=== PATIENT | male | born 1950 | race Caucasian/White ===

== ENCOUNTER 2019-11-11 11:34 | Inpatient (IN) | payer MEDICARE, OTHER ==
[2019-11-11] MEDS ORDERED: Sodium Chloride 0.9% 10 ML Syringe FLUSH PRN (11:56)
--- NOTE | 2019-11-11 12:00 | EDM.PDOC ---
ED HPI GENERAL MEDICAL PROBLEM - General Chief Complaint: Respiratory Problem Stated Complaint: [facility] Time Seen by Provider: 11/11/19 11:54 Source of Information: Reports: Patient History Limitations: Reports: No Limitations - History of Present Illness INITIAL COMMENTS - FREE TEXT/NARRATIVE: 69-year-old male presents to the ED for evaluation of increasing dyspnea on minimal exertion. Mild orthopnea and PND but he is up every hour to void. He does not have sleep apnea syndrome. He has known COPD from cigarette smoking and ingest of heart failure. It's unclear whether he's ever had myocardial infarction. Similar type problems for the last year or 2. States his legs are grossly swollen and 10 to improve overnight with gravity. He believes he is voiding fairly normally although he has nocturia 4-5. Denies cough or sputum production. No fever or chills. Oxygen at 4 L/m all times. Experiencing dyspnea on minimal exertion such as going to the bathroom. Usually wears his nasal prongs in his mouth at nighttime due to nasal congestion. Denies any recent changes in medications. No recent severe chest pain. Onset: Gradual Onset Date: 11/07/19 Duration: Day(s):, Getting Worse Location: Reports: Generalized (Increased dependent edema and dyspnea on minimal exertion.) Quality: Reports: Ache, Throbbing Severity: Moderate (In his legs.) Improves with: Reports: Other (Elevating his legs helps reduce some of the edema.) Worsens with: Reports: Other (Prongs sitting.) Context: Reports: Other. Denies: Activity, Exercise, Lifting, Sick Contact, Trauma Associated Symptoms: Reports: Cough (Spontaneous occurrence), Malaise, Shortness of Breath, Weakness. 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) - Related Data Allergies Allergy/AdvReac Type Severity Reaction Status Date / Time No Known Allergies Allergy Verified 11/11/19 12:22 Home Meds: Home Meds Albuterol Sulfate [Proair Respiclick] 2 puff INH Q6H PRN 11/11/19 [History] Aspirin 81 mg PO DAILY 11/11/19 [History] Budesonide/Formoterol [Symbicort 160-4.5 MCG] 2 puff INH BID 11/11/19 [History] Cannabidiol (Cbd) Extract [CBD Oil] 1 drop PO BEDTIME 11/11/19 [History] Losartan [Cozaar] 100 mg PO DAILY 11/11/19 [History] Nortriptyline HCl [Pamelor] 50 mg PO DAILY 11/11/19 [History] Tiotropium [Spiriva HandiHaler] 18 mcg INH DAILY 11/11/19 [History] carvediloL [Carvedilol] 25 mg PO DAILY 11/11/19 [History] Past Medical History Cardiovascular History: Reports: Bypass (A bypass done in 2012. States one vessel had an aneurysm on it.), Cardiomyopathy, Heart Failure, Hypertension, [place] , Pulmonary Hypertension, PVD, SOB on Exertion (Suspect but not proven), Other ( See Below) (No one thoracic aortic aneurysm.) Respiratory History: Reports: COPD Genitourinary History: Reports: BPH (Nocturia 45.) Psychiatric History: Reports: Anxiety, Depression, PTSD Social & Family History - Tobacco Use Smoking Status *Q: Former Smoker - Living Situation & Occupation Living situation: Reports: Single Occupation: Unemployed ED ROS GENERAL - Review of Systems Review Of Systems: See Below Constitutional: Reports: Malaise, Weakness, Fatigue, Weight Gain (He estimates his weight is 180 pounds. He states he usually weighs around 155.). Denies: Fever, Chills HEENT: Reports: No Symptoms Respiratory: Reports: Shortness of Breath, Cough. Denies: Wheezing, Pleuritic Chest Pain, Sputum, Hemoptysis, Other Cardiovascular: Reports: Blood Pressure Problem (Nonproductive), Dyspnea on Exertion (Worsening edema both lower extremities over the last week.), Edema. Denies: Chest Pain, Claudication, Lightheadedness, Orthopnea Endocrine: Reports: Fatigue ( Weekly. He is on oxygen 4 L/m by nasal cannula at all times.) GI/Abdominal: Reports: Decreased Appetite : Reports: Frequency, Other Musculoskeletal: Reports: Joint Pain (Nocturia 45 per night.) Skin: Reports: No Symptoms ( He skips low back neck at times) Neurological: Reports: No Symptoms Psychiatric: Reports: Anxiety, Depression, Other Hematologic/Lymphatic: Reports: No Symptoms Immunologic: Reports: No Symptoms ED EXAM, GENERAL - Physical Exam Exam: See Below Exam Limited By: No Limitations General Appearance: Alert, WD/WN, Mild Distress, Other (Temperature 36.3. Heart rate 108 at the bedside. Respiratory to 16 with O2 sats of 91% on 4 L. BP elevated 156/96.) Eye Exam: Bilateral Eye: Normal Inspection Throat/Mouth: Normal Inspection, Normal Lips, Normal Oropharynx Head: Atraumatic, Normocephalic Neck: Full Range of Motion, Tender Lateral. No: Carotid Bruit, Tender Midline, Thyromegaly Respiratory/Chest: No Respiratory Distress, Decreased Breath Sounds (Decreased breath sounds lower 30% of lung jones bilaterally.), Rales. No: Normal Breath Sounds, Respiratory Distress, Rhonchi, Wheezing (Category fine rales both bases. ) Cardiovascular: Normal Peripheral Pulses, Regular Rate, Rhythm, No Gallop, No Murmur, No Rub. No: No Edema Peripheral Pulses: 0: Posterior Tibial (L) (Pulses in her lower extremities are obscured by severe dependent edema both lower extremities.), Posterior Tibial (R ), Dorsalis Pedis (L), Dorsalis Pedis (R) GI/Abdominal: Distended (Bowel sounds are decreased from the norm.Is distended and firm to palpation and dull to percussion. No At [place]. The distention limits ability to palpate solid organs.), Abnormal Bowel Sounds (Male) Exam: Other Extremities: Pedal Edema (Plus pitting edema both lower extremities above the knees bilaterally. No open wounds or serous drainage from either leg. The right leg is slightly more swollen than the left.) Neurological: Alert, Oriented, CN II-XII Intact, Normal Cognition. No: Normal Gait Psychiatric: Anxious Skin Exam: Warm, Dry, Intact, Normal Color, No Rash EKG INTERPRETATION EKG Date: 11/11/19 Time: 12:00 Rhythm: NSR Rate (Beats/Min): 81 [place]: Normal P-Wave: Enlarged QRS: Other (T-wave inversion V5 and V6 compatible with left ventricular hypertrophy with strain. Left ventricular hypertrophy with strain.Is a Q-wave in V1 near Q-wave in V2. Consider old anteroseptal myocardial infarction. Is a nonspecific intraventricular conduction delay. I suspect an early incomplete left bundle branch block pattern.) ST-T: Other QT: Prolonged EKG Interpretation Comments: Abnormal ECG Course - Vital Signs Last Recorded V/S: Last Vital Signs Temp 36.3 C 11/11/19 11:39 Pulse 108 H 11/11/19 11:39 Resp 16 11/11/19 11:39 BP 156/96 H 11/11/19 11:39 Pulse Ox 94 L 11/11/19 12:08 - Orders/Labs/Meds Orders: Active Orders 24 hr Category Date Time Status Admission Diagnosis [ADT] Stat ADT 11/11/19 17:09 Ordered EKG Documentation Completion [RC] STAT Care 11/11/19 11:56 Active Oxygen Therapy [RC] ASDIRECTED Care 11/11/19 11:56 Active Peripheral IV Care [RC] . DIRECTED Care 11/11/19 11:56 Active RT Aerosol Therapy [RC] ASDIRECTED Care 11/11/19 12:08 Active Sodium Chloride 0.9% [Saline Flush] Med 11/11/19 11:56 Active 10 ml FLUSH ASDIRECTED PRN Peripheral IV Insertion Adult [OM.PC] Stat Oth 11/11/19 11:56 Ordered Medication Orders Sodium Chloride (Saline Flush) 10 ml FLUSH ASDIRECTED PRN PRN Reason: Keep Vein Open Last Admin: 11/11/19 11:59 Dose: 10 ml Labs: Laboratory Tests 11/11/19 11/11/19 11/11/19 Range/Units 11:45 11:45 11:45 WBC 7.33 (4.23-9.07) K/mm3 RBC 4.42 L (4.63-6.08) M/mm3 Hgb 11.2 L (13.7-17.5) gm/dl Hct 37.1 L (40.1-51.0) % MCV 83.9 (79.0-92.2) fl MCH 25.3 L (25.7-32.2) pg MCHC 30.2 L (32.2-35.5) g/dl RDW Std Deviation 58.1 H (35.1-43.9) fL Plt Count 266 (163-337) K/mm3 MPV 8.9 L (9.4-12.3) fl Neut % (Auto) 74.2 H (34.0-67.9) % Lymph % (Auto) 15.4 L (21.8-53.1) % [place] % (Auto) 7.1 (5.3-12.2) % Eos % (Auto) 3.0 (0.8-7.0) Baso % (Auto) 0.3 (0.1-1.2) % Neut # (Auto) 5.44 H (1.78-5.38) K/mm3 Lymph # (Auto) 1.13 L (1.32-3.57) K/mm3 [place] # (Auto) 0.52 (0.30-0.82) K/mm3 Eos # (Auto) 0.22 (0.04-0.54) K/mm3 Baso # (Auto) 0.02 (0.01-0.08) K/mm3 PT 10.2 (9.7-12.0) SECONDS INR 0.93 APTT 32 H (22-31) SECONDS Sodium 142 (136-145) mEq/L Potassium 4.2 (3.5-5.1) mEq/L Chloride 102 (98-107) mEq/L Carbon Dioxide 32 (21-32) mEq/L Anion Gap 12.2 (5-15) BUN 30 H (7-18) mg/dL Creatinine 2.2 H (0.7-1.3) mg/dL Est Cr Clr Drug Dosing 35.76 mL/min Estimated GFR (MDRD) 30 (>60) mL/min BUN/Creatinine Ratio 13.6 L (14-18) Glucose 97 (80-115) mg/dL Calcium 8.7 (8.5-10.1) mg/dL Magnesium 1.8 (1.8-2.4) mg/dl Total Bilirubin 0.3 (0.2-1.0) mg/dL AST 18 (15-37) U/L ALT 25 (16-63) U/L Alkaline Phosphatase 84 (46-116) U/L CK-MB (CK-2) 1.6 (0-3.6) ng/ml Troponin I < 0.017 (0.00-0.056) ng/mL C-Reactive Protein 0.9 (<1.0) mg/dL NT-Pro-B Natriuret Pep (0-125) pg/mL Total Protein 6.6 (6.4-8.2) g/dl Albumin 2.8 L (3.4-5.0) g/dl Globulin 3.8 gm/dL Albumin/Globulin Ratio 0.7 L (1-2) Urine Color (Yellow) Urine Appearance (Clear) Urine pH (5.0-8.0) Ur Specific [place] (1.005-1.030) Urine Protein (Negative) Urine Glucose (UA) (Negative) Urine Ketones (Negative) Urine Occult Blood (Negative) Urine Nitrite (Negative) Urine Bilirubin (Negative) Urine Urobilinogen (0.2-1.0) Ur Leukocyte Esterase (Negative) Urine RBC (0-5) /hpf Urine WBC (0-5) /hpf Ur Squamous Epith Cells (0-5) /hpf Urine Bacteria (FEW) /hpf Urine Mucus (FEW) /hpf 11/11/19 11/11/19 Range/Units 11:45 13:00 WBC (4.23-9.07) K/mm3 RBC (4.63-6.08) M/mm3 Hgb (13.7-17.5) gm/dl Hct (40.1-51.0) % MCV (79.0-92.2) fl MCH (25.7-32.2) pg MCHC (32.2-35.5) g/dl RDW Std Deviation (35.1-43.9) fL Plt Count (163-337) K/mm3 MPV (9.4-12.3) fl Neut % (Auto) (34.0-67.9) % Lymph % (Auto) (21.8-53.1) % [place] % (Auto) (5.3-12.2) % Eos % (Auto) (0.8-7.0) Baso % (Auto) (0.1-1.2) % Neut # (Auto) (1.78-5.38) K/mm3 Lymph # (Auto) (1.32-3.57) K/mm3 [place] # (Auto) (0.30-0.82) K/mm3 Eos # (Auto) (0.04-0.54) K/mm3 Baso # (Auto) (0.01-0.08) K/mm3 PT (9.7-12.0) SECONDS INR APTT (22-31) SECONDS Sodium (136-145) mEq/L Potassium (3.5-5.1) mEq/L Chloride (98-107) mEq/L Carbon Dioxide (21-32) mEq/L Anion Gap (5-15) BUN (7-18) mg/dL Creatinine (0.7-1.3) mg/dL Est Cr Clr Drug Dosing mL/min Estimated GFR (MDRD) (>60) mL/min BUN/Creatinine Ratio (14-18) Glucose (80-115) mg/dL Calcium (8.5-10.1) mg/dL Magnesium (1.8-2.4) mg/dl Total Bilirubin (0.2-1.0) mg/dL AST (15-37) U/L ALT (16-63) U/L Alkaline Phosphatase (46-116) U/L CK-MB (CK-2) (0-3.6) ng/ml Troponin I (0.00-0.056) ng/mL C-Reactive Protein (<1.0) mg/dL NT-Pro-B Natriuret Pep 4015 H (0-125) pg/mL Total Protein (6.4-8.2) g/dl Albumin (3.4-5.0) g/dl Globulin gm/dL Albumin/Globulin Ratio (1-2) Urine Color Yellow (Yellow) Urine Appearance Clear (Clear) Urine pH 6.5 (5.0-8.0) Ur Specific [place] 1.025 (1.005-1.030) Urine Protein 3+ H (Negative) Urine Glucose (UA) Negative (Negative) Urine Ketones Negative (Negative) Urine Occult Blood Trace-lysed H (Negative) Urine Nitrite Negative (Negative) Urine Bilirubin Negative (Negative) Urine Urobilinogen 0.2 (0.2-1.0) Ur Leukocyte Esterase Negative (Negative) Urine RBC 0-5 (0-5) /hpf Urine WBC 0-5 (0-5) /hpf Ur Squamous Epith Cells 0-5 (0-5) /hpf Urine Bacteria Few (FEW) /hpf Urine Mucus Few (FEW) /hpf Meds: Medications Generic Name Dose Route Start Last Admin Trade Name Freq PRN Reason Stop Dose Admin Sodium Chloride 10 ml 11/11/19 11:56 11/11/19 11:59 Saline Flush FLUSH 10 ml ASDIRECTED PRN Administration Keep Vein Open Discontinued Medications Generic Name Dose Route Start Last Admin Trade Name Freq PRN Reason Stop Dose Admin Albuterol/Ipratropium 3 ml 11/11/19 12:08 11/11/19 12:14 Duoneb 3.0-0.5 Mg/3 Ml NEB 11/11/19 12:09 3 ml ONETIME ONE Administration Furosemide 40 mg 11/11/19 12:04 11/11/19 12:26 Lasix IVPUSH 11/11/19 12:05 40 mg NOW ONE Administration - Radiology Interpretation Free Text/Narrative:: 69-year-old male presents to the ED with gradually worsening dyspnea over the last week. Denies really any serious cough. Denies fever or chills. He has a history of intermittent problems with severe heart failure and increased edema in his lower extremities. He estimates that he's gained about 10 pounds in the last week. It's not real clear as he has no scale at home. Uses oxygen at 4 L/m by nasal prongs at all times due to COPD. He uses metered-dose inhalers at home which do help somewhat with his dyspnea. He states he is now dyspneic on minimal exertion such as walking from the bedroom to the bathroom. Appetite as he is no room for food. Clinically the patient is in significant congestive failure with I believe some ascites as well as marked dependent edema. Crease air flow to the lower 30% of lung jones bilaterally. Plan 1 view chest x-ray. ECG. Routine labs including cardiac markers and coags. BNP and serum magnesium. Be maintained on oxygen of 4 L/m by nasal cannula to maintain sats of 93%. Lasix 40 mg IV. I do not yet have a list of his current meds. And a DuoNeb while in the department. - Re-Assessments/Exams Free Text/Narrative Re-Assessment/Exam: 11/11/19 12:46 port chest x-ray reveals marked cardiomegaly with marked prominence of the thoracic aortic knob compatible with thoracic aortic aneurysm. He has evidence of previous open heart surgery with wires in the sternum. There is a diffuse vascular congestion pattern perhaps very minimal blunting of the left costophrenic angle. Is a linear band of either atelectasis or fluid in the right lung base. 11/11/19 13:17 Labs reveal a normal white count at 7.33. Differential by auto differential is 74.2% neutrophils. Hemoglobin is 11.2 slightly low with hematocrit of 37.1. MCV is normal at 83.9. Blood count 266,000. CT is 10.2 with an INR of 0.93. PTT is mildly elevated at 32. Sodium is 142 with potassium 4.2. Chloride is 102 with a bicarbonate 32 mildly elevated. Anion gap is 12.2. BUN is elevated at 30 with a creatinine of 2.2. e GFR is only 30 i.e. stage III chronic kidney disease. Glucose is 97 with calcium of 8.7. Magnesium low normal at 1.8. Liver function is normal. CK-MB fraction is 1.6 with a troponin I of less than 0.017. C-reactive protein is 0.9. BNP is 4015. Total protein is 6.6 with an albumin fraction low at 2.8. Departure - Departure Time of Disposition: 17:13 Disposition: Admitted As Inpatient 68 Condition: Fair Clinical Impression: End stage chronic obstructive pulmonary disease, Chronic renal insufficiency, stage III (moderate), Proteinuria, unspecified Acute exacerbation of CHF (congestive heart failure) Qualifiers: Heart failure type: combined systolic and diastolic Qualified Code(s): I50.43 - Acute on chronic combined systolic (congestive) and diastolic (congestive) heart failure - Discharge Information *PRESCRIPTION DRUG MONITORING PROGRAM REVIEWED*: Not Applicable *COPY OF PRESCRIPTION DRUG MONITORING REPORT IN PATIENT MERY: Not Applicable Referrals: Mae Don MD [Primary Care Provider] - Forms: ED Department Discharge Sepsis Event Note - Evaluation Sepsis Screening Result: No Definite Risk - Focused Exam Vital Signs: Vital Signs Temp Pulse Resp BP Pulse Ox Pulse Ox 11/11/19 12:08 94 L 11/11/19 11:39 36.3 C 108 H 16 156/96 H 91 L Date Exam was Performed: 11/11/19 Time Exam was Performed: 17:11 - My Orders Last 24 Hours: My Active Orders 11/11/19 11:56 EKG Documentation Completion [RC] STAT Oxygen Therapy [RC] ASDIRECTED Peripheral IV Care [RC] . DIRECTED Sodium Chloride 0.9% [Saline Flush] 10 ml FLUSH ASDIRECTED PRN Peripheral IV Insertion Adult [OM.PC] Stat 11/11/19 12:08 RT Aerosol Therapy [RC] ASDIRECTED 11/11/19 17:09 Admission Diagnosis [ADT] Stat - Assessment/Plan Last 24 Hours: My Active Orders 11/11/19 11:56 EKG Documentation Completion [RC] STAT Oxygen Therapy [RC] ASDIRECTED Peripheral IV Care [RC] . DIRECTED Sodium Chloride 0.9% [Saline Flush] 10 ml FLUSH ASDIRECTED PRN Peripheral IV Insertion Adult [OM.PC] Stat 11/11/19 12:08 RT Aerosol Therapy [RC] ASDIRECTED 11/11/19 17:09 Admission Diagnosis [ADT] Stat
[2019-11-11] MEDS ORDERED: Furosemide 40 MG/4 ML VIAL IVPUSH ONE (12:04)
[2019-11-11] MEDS ORDERED: Albuterol/Ipratropium 3.0-0.5 MG/3 ML Neb Soln NEB ONE (12:08)
--- NOTE | 2019-11-11 12:54 | CR ---
Chest: Portable view of the chest was obtained. Comparison: No prior chest imaging. Thoracic aorta shows aneurysmal dilatation with aortic knob measuring about 7 cm. Heart is mildly enlarged. Lungs show no acute parenchymal change. Bony structures are grossly intact. Previous sternotomy noted for CABG. Impression: 1. Thoracic aorta shows aneurysmal dilatation. 2. Other findings as noted above. Nothing acute is seen. Diagnostic code #3 This report was dictated in [place] Standard Time
--- NOTE | 2019-11-11 15:07 | PCM.HP.2 ---
H&P History of Present Illness - General Date of Service: 11/11/19 Admit Problem/Dx: Congestive Heart Failure Source of Information: Patient, Old Records, Provider, RN Notes Reviewed History Limitations: Reports: No Limitations - History of Present Illness Initial Comments - Free Text/Narative: This is a 69 yo elderly white male with past medical hx/o HTN, HLD, PVD, CAD S/ p CABG in 2012, COPD, Respiratory Failure on 4L NC chronically, Hx/o ND, Hx/o ND , Pulmonary HTN, TAA, BPH, Anxiety, Depression and Hx/o PTSD who presents to ED with complaints of increasing dyspnea on minimal exertion associated with Orthopnea and PND over the course of a week. He carries a hx/o cardiomyopathy and HF with unknown EF. He states his legs are grossly swollen and had 10lbs weight gain over the course of several days. He takes diuretic but makes him voided a lot at night. He is O2 dependent on 4L NC all the time for SANT[place] and COPD. He states he gets short of breath even going to the bathroom. He denies any signs or symptoms of systemic infection. His initial work up in ED shows a CBC remarkable for RBC of 4.42, Hgb of 11.2, Hct of 37.1, MCH of 25.3, MCHC of 30.2, RDW of 58.1, MPV of 8.9, Neutrophils of 74.2%, Lymphocytes of 15.4%, Neutrophil # of 5.44, Lymphocyte # of 1.13. His coagulation studies are significant for aPTT of 32. His Chemistry is remarkable for BUN of 30, Cr of 2.2, ProBNP of 4015, and Albumin of 2.8. His UA is not suggestive of UTI but noted for 3+ proteinuria. Patient received initial treatment in ED before he was sent to us for further management. - Related Data Allergies/Adverse Reactions: Allergies Allergy/AdvReac Type Severity Reaction Status Date / Time No Known Allergies Allergy Verified 11/11/19 12:22 Home Medications: Home Meds Albuterol Sulfate [Proair Respiclick] 2 puff INH Q6H PRN 11/11/19 [History] Aspirin 81 mg PO DAILY 11/11/19 [History] Budesonide/Formoterol [Symbicort 160-4.5 MCG] 2 puff INH BID 11/11/19 [History] Cannabidiol (Cbd) Extract [CBD Oil] 1 drop PO BEDTIME 11/11/19 [History] Losartan [Cozaar] 100 mg PO DAILY 11/11/19 [History] Nortriptyline HCl [Pamelor] 50 mg PO DAILY 11/11/19 [History] Tiotropium [Spiriva HandiHaler] 18 mcg INH DAILY 11/11/19 [History] carvediloL [Carvedilol] 25 mg PO DAILY 11/11/19 [History] Past Medical History Cardiovascular History: Reports: Bypass (A bypass done in 2012. States one vessel had an aneurysm on it.), Cardiomyopathy, Heart Failure, Hypertension, ND , Pulmonary Hypertension, PVD, SOB on Exertion (Suspect but not proven), Other ( See Below) (No one thoracic aortic aneurysm.) Respiratory History: Reports: COPD Genitourinary History: Reports: BPH (Nocturia 45.) Psychiatric History: Reports: Anxiety, Depression, PTSD Social & Family History - Tobacco Use Smoking Status *Q: Former Smoker Used Tobacco, but Quit: Yes Month/Year Tobacco Last Used: 6 years ago - Recreational Drug Use Recreational Drug Use: No - Living Situation & Occupation Living situation: Reports: Single Occupation: Unemployed H&P Review of Systems - Review of Systems: Review Of Systems: Comprehensive ROS is negative, except as noted in HPI. General: Reports: Weakness, Decreased Appetite, Weight Gain. Denies: Fever, Chills HEENT: Reports: No Symptoms Pulmonary: Reports: Shortness of Breath, Cough Cardiovascular: Reports: Dyspnea on Exertion, Orthopnea, PND, Blood Pressure Problem Gastrointestinal: Denies: Abdominal Pain, Nausea, Vomiting Genitourinary: Reports: Frequency Musculoskeletal: Reports: No Symptoms Skin: Denies: Cyanosis, Diaphoresis, Bruising, Erythema Psychiatric: Denies: Confusion Neurological: Denies: Pre-Existing Deficit, Trouble Speaking Hematologic/Lymphatic: Reports: No Symptoms Immunologic: Reports: No Symptoms Exam - Exam Exam: See Below - Vital Signs Vital Signs: Last Vital Signs Temp 36.3 C 11/11/19 11:39 Pulse 108 H 11/11/19 11:39 Resp 16 11/11/19 11:39 BP 156/96 H 11/11/19 11:39 Pulse Ox 94 L 11/11/19 12:08 Weight: 81.647 kg - Exam Quality Assessment: Supplemental Oxygen General: Alert, Oriented, Cooperative HEENT: Conjunctiva Clear, EACs Clear, EOMI, Hearing Intact, Mucosa Moist & [place] , Nares Patent, Normal Nasal Septum, Posterior Pharynx Clear, Pupils Equal, Pupils Reactive Neck: Supple, Trachea Midline Lungs: Normal Respiratory Effort, Decreased Breath Sounds Cardiovascular: Regular Rate, Regular Rhythm GI/Abdominal Exam: Normal Bowel Sounds, Soft, Non-Tender, No Organomegaly, No Distention, No Abnormal Bruit, No Mass (Male) Exam: Deferred Rectal (Males) Exam: Deferred Back Exam: Normal Inspection, Decreased Range of Motion Extremities: Normal Range of Motion, Normal Capillary Refill, Pedal Edema, Slow Capillary Refill, Other (improved peripheral edema but still considerably edematous). No: Leg Pain, Mottled, Redness Skin: Warm, Dry, Intact Skin Alteration Location (Drawings Not To Scale): 1 - 2+ pitting edema Neuro Extensive - Mental Status: Alert, Oriented x3, Normal Cognition, Memory Intact Neuro Extensive - Motor, Sensory, Reflexes: CN II-XII Intact (limited due to significant peripheral edema), Abnormal Gait Psychiatric: Alert, Normal Affect, Normal Mood - Patient Data Lab Results Last 24 hrs: Laboratory Results - last 24 hr 11/11/19 11/11/19 11/11/19 Range/Units 11:45 11:45 11:45 WBC 7.33 (4.23-9.07) K/mm3 RBC 4.42 L (4.63-6.08) M/mm3 Hgb 11.2 L (13.7-17.5) gm/dl Hct 37.1 L (40.1-51.0) % MCV 83.9 (79.0-92.2) fl MCH 25.3 L (25.7-32.2) pg MCHC 30.2 L (32.2-35.5) g/dl RDW Std Deviation 58.1 H (35.1-43.9) fL Plt Count 266 (163-337) K/mm3 MPV 8.9 L (9.4-12.3) fl Neut % (Auto) 74.2 H (34.0-67.9) % Lymph % (Auto) 15.4 L (21.8-53.1) % [place] % (Auto) 7.1 (5.3-12.2) % Eos % (Auto) 3.0 (0.8-7.0) Baso % (Auto) 0.3 (0.1-1.2) % Neut # (Auto) 5.44 H (1.78-5.38) K/mm3 Lymph # (Auto) 1.13 L (1.32-3.57) K/mm3 Frontier # (Auto) 0.52 (0.30-0.82) K/mm3 Eos # (Auto) 0.22 (0.04-0.54) K/mm3 Baso # (Auto) 0.02 (0.01-0.08) K/mm3 PT 10.2 (9.7-12.0) SECONDS INR 0.93 APTT 32 H (22-31) SECONDS Sodium 142 (136-145) mEq/L Potassium 4.2 (3.5-5.1) mEq/L Chloride 102 (98-107) mEq/L Carbon Dioxide 32 (21-32) mEq/L Anion Gap 12.2 (5-15) BUN 30 H (7-18) mg/dL Creatinine 2.2 H (0.7-1.3) mg/dL Est Cr Clr Drug Dosing 35.76 mL/min Estimated GFR (MDRD) 30 (>60) mL/min BUN/Creatinine Ratio 13.6 L (14-18) Glucose 97 (80-115) mg/dL Calcium 8.7 (8.5-10.1) mg/dL Magnesium 1.8 (1.8-2.4) mg/dl Total Bilirubin 0.3 (0.2-1.0) mg/dL AST 18 (15-37) U/L ALT 25 (16-63) U/L Alkaline Phosphatase 84 (46-116) U/L CK-MB (CK-2) 1.6 (0-3.6) ng/ml Troponin I < 0.017 (0.00-0.056) ng/mL C-Reactive Protein 0.9 (<1.0) mg/dL NT-Pro-B Natriuret Pep (0-125) pg/mL Total Protein 6.6 (6.4-8.2) g/dl Albumin 2.8 L (3.4-5.0) g/dl Globulin 3.8 gm/dL Albumin/Globulin Ratio 0.7 L (1-2) Urine Color (Yellow) Urine Appearance (Clear) Urine pH (5.0-8.0) Ur Specific [place] (1.005-1.030) Urine Protein (Negative) Urine Glucose (UA) (Negative) Urine Ketones (Negative) Urine Occult Blood (Negative) Urine Nitrite (Negative) Urine Bilirubin (Negative) Urine Urobilinogen (0.2-1.0) Ur Leukocyte Esterase (Negative) Urine RBC (0-5) /hpf Urine WBC (0-5) /hpf Ur Squamous Epith Cells (0-5) /hpf Urine Bacteria (FEW) /hpf Urine Mucus (FEW) /hpf 11/11/19 11/11/19 Range/Units 11:45 13:00 WBC (4.23-9.07) K/mm3 RBC (4.63-6.08) M/mm3 Hgb (13.7-17.5) gm/dl Hct (40.1-51.0) % MCV (79.0-92.2) fl MCH (25.7-32.2) pg MCHC (32.2-35.5) g/dl RDW Std Deviation (35.1-43.9) fL Plt Count (163-337) K/mm3 MPV (9.4-12.3) fl Neut % (Auto) (34.0-67.9) % Lymph % (Auto) (21.8-53.1) % [place] % (Auto) (5.3-12.2) % Eos % (Auto) (0.8-7.0) Baso % (Auto) (0.1-1.2) % Neut # (Auto) (1.78-5.38) K/mm3 Lymph # (Auto) (1.32-3.57) K/mm3 [place] # (Auto) (0.30-0.82) K/mm3 Eos # (Auto) (0.04-0.54) K/mm3 Baso # (Auto) (0.01-0.08) K/mm3 PT (9.7-12.0) SECONDS INR APTT (22-31) SECONDS Sodium (136-145) mEq/L Potassium (3.5-5.1) mEq/L Chloride (98-107) mEq/L Carbon Dioxide (21-32) mEq/L Anion Gap (5-15) BUN (7-18) mg/dL Creatinine (0.7-1.3) mg/dL Est Cr Clr Drug Dosing mL/min Estimated GFR (MDRD) (>60) mL/min BUN/Creatinine Ratio (14-18) Glucose (80-115) mg/dL Calcium (8.5-10.1) mg/dL Magnesium (1.8-2.4) mg/dl Total Bilirubin (0.2-1.0) mg/dL AST (15-37) U/L ALT (16-63) U/L Alkaline Phosphatase (46-116) U/L CK-MB (CK-2) (0-3.6) ng/ml Troponin I (0.00-0.056) ng/mL C-Reactive Protein (<1.0) mg/dL NT-Pro-B Natriuret Pep 4015 H (0-125) pg/mL Total Protein (6.4-8.2) g/dl Albumin (3.4-5.0) g/dl Globulin gm/dL Albumin/Globulin Ratio (1-2) Urine Color Yellow (Yellow) Urine Appearance Clear (Clear) Urine pH 6.5 (5.0-8.0) Ur Specific [place] 1.025 (1.005-1.030) Urine Protein 3+ H (Negative) Urine Glucose (UA) Negative (Negative) Urine Ketones Negative (Negative) Urine Occult Blood Trace-lysed H (Negative) Urine Nitrite Negative (Negative) Urine Bilirubin Negative (Negative) Urine Urobilinogen 0.2 (0.2-1.0) Ur Leukocyte Esterase Negative (Negative) Urine RBC 0-5 (0-5) /hpf Urine WBC 0-5 (0-5) /hpf Ur Squamous Epith Cells 0-5 (0-5) /hpf Urine Bacteria Few (FEW) /hpf Urine Mucus Few (FEW) /hpf Result Diagrams: 11/12/19 06:12 11/12/19 06:12 EKG INTERPRETATION EKG Date: 11/11/19 Time: 12:00 Rhythm: NSR Rate (Beats/Min): 81 ST-T: Other (T wave inversion in V5-V6) QT: Prolonged Sepsis Event Note - Evaluation Sepsis Screening Result: No Definite Risk - Focused Exam Vital Signs: Vital Signs Temp Pulse Resp BP Pulse Ox Pulse Ox 11/11/19 12:08 94 L 11/11/19 11:39 36.3 C 108 H 16 156/96 H 91 L Date Exam was Performed: 11/12/19 Time Exam was Performed: 15:36 Problem List Initiated/Reviewed/Updated: Yes Orders Last 24hrs: Active Orders 24 hr Category Date Time Status EKG Documentation Completion [RC] STAT Care 11/11/19 11:56 Active Oxygen Therapy [RC] ASDIRECTED Care 11/11/19 11:56 Active Peripheral IV Care [RC] . DIRECTED Care 11/11/19 11:56 Active RT Aerosol Therapy [RC] ASDIRECTED Care 11/11/19 12:08 Active Sodium Chloride 0.9% [Saline Flush] Med 11/11/19 11:56 Active 10 ml FLUSH ASDIRECTED PRN Peripheral IV Insertion Adult [OM.PC] Stat Oth 11/11/19 11:56 Ordered Medication Orders Sodium Chloride (Saline Flush) 10 ml FLUSH ASDIRECTED PRN PRN Reason: Keep Vein Open Last Admin: 11/11/19 11:59 Dose: 10 ml Assessment/Plan Comment:: Acute: Probable Congestive Heart Failure with unknown EF Acute on Chronic Has underlying cardiomyopathy ProBNP of 4015 with peripheral signs of significant edema 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 Lungs are clear Plan: Heart failure regimen with gentle diuresis, 2D echo and AHA diet Mild COPD Exacerbation Worsening SOB and Dyspnea Has inhalers at home and supplemental O2 Plan: Bronchodilators, decongestant/expectorant, sputum culture, viral panel, RT care, pulmonary toilet, and serial CXR as indicated Dyspnea Angina Equivalent vs PE Has hx/o CAD S/p CABG and Pulmonary HTN Plan: Supplemental O2, Low dose IV Morphine for symptomatic control, ACS work up , and possible D-dimer level if indicated CAD S/p CABG in 2012 He takes ASA and carvedilol Plan: Resume home cardiac medications and AHA diet Pulmonary HTN Has COPD and Chronic Respiratory Failure Continue Supplemental O2 and Bronchodilators 2D echo in AM Respiratory Failure Has underlying COPD Usually on 4L NC at home Titrate to keep O2 sat > 92% CHRISTIANNE vs CKD No baseline for comparison BUN 30/Cr of 2.2 ATN vs AIN Losartan 100 mg po daily-will hold for now 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 Urine studies and renal US to r/o Obstructive Uropathy Avoid nephrotoxic agents Gentle diuresis if possible 10 Lbs Weight Gain Has significant edema Happened in the course of 6 months They discontinued his diuretic Plan: to diurese him and limit salt and fluid intake Proteinuria 3+ protein on UA He might have nephrotic syndrome: Severe swelling, weight gain, and fatigue He is on Losartan 100 mg po daily Carries no hx/o diabetes Suspect 2/2 underlying CKD Will check his urine if foamy Need to see nephrology after discharge Hypoalbuminemia Albumin of 2.8 IV Albumin to improve his peripheral swelling Normocytic hypochromic Anemia Hgb of 11grams Likely carries a hx/o anemia of chronic disease with his underlying CKD of Stage 3 Will monitor Chronic: HTN, HLD, PVD, CAD S/p CABG in 2012, Hx/o ND, COPD, Hx/o ND, Cardiomyopathy (likely Non-ischemic), Pulmonary HTN, TAA, BPH, Anxiety, Depression and Hx/o PTSD Plan:Admit to [facility] with Tele. Heart failure regimen: diuretic, salt/fluid restriction, daily weight check, and IS/Os. Dietary consult for heart failure diet. PT/OT for deconditioning. RT to assess and treat respiratory status. CM/ SW for d/c planning. Code status DNI. Prognosis is guarded.
[2019-11-11] MEDS ORDERED: Acetaminophen 325 MG Tab PO PRN (19:54)
[2019-11-11] MEDS ORDERED: Acetaminophen/HYDROcodone 325-5 MG Tab PO PRN (19:54)
[2019-11-11] MEDS ORDERED: Ondansetron 4 MG/2 ML SDV IV PRN (19:54)
[2019-11-11] MEDS ORDERED: Polyethylene Glycol 3350 Powder 17 GM Packet PO PRN (19:54)
[2019-11-11] MEDS ORDERED: HYDROmorphone 0.5 MG/0.5 ML Syringe IVPUSH PRN (19:54)
[2019-11-11] MEDS ORDERED: Promethazine 6.25 MG in Sodium Chloride 0.9% 50 ML IV PRN (19:54)
[2019-11-11] MEDS ORDERED: Bisacodyl 5 MG Tab PO PRN (19:54)
[2019-11-11] MEDS ORDERED: Temazepam 7.5 MG Cap PO PRN (19:54)
[2019-11-11] MEDS ORDERED: Magnesium Hydroxide 400 MG/5 ML Susp 30 ML Cup PO PRN (19:54)
[2019-11-11] MEDS ORDERED: Albumin 25% 12.5 GM/50 ML BAG IV ONE (20:01)
[2019-11-11] MEDS ORDERED: Albuterol 6.7 GM Inhaler INH PRN (20:20)
[2019-11-11] MEDS ORDERED: guaiFENesin/Dextromethorphan 100-10 MG/5 ML Soln 5 ML Cup PO PRN (20:43)
[2019-11-11] MEDS ORDERED: Formoterol/Mometasone 200-5 MCG 8.8 GM Inhaler IH SCH (21:00)
[2019-11-11] MEDS ORDERED: CANNABIDIOL PO SCH (21:00)
[2019-11-11] MEDS: Albuterol/Ipratropium 3.0-0.5 MG/3 ML Neb Soln NEB PRN (21:22)
[2019-11-11] MEDS: Formoterol/Mometasone 200-5 MCG 8.8 GM Inhaler IH SCH (21:22)
[2019-11-11] MEDS: Nortriptyline 25 MG Cap PO SCH (22:34)
[2019-11-11] MEDS: Heparin Sodium 5,000 Units/ML Vial SUBCUT SCH (22:34)
[2019-11-12] MEDS: Bumetanide 1 MG Tab PO SCH ×2 (06:05→13:30)
[2019-11-12] MEDS: Formoterol/Mometasone 200-5 MCG 8.8 GM Inhaler IH SCH ×2 (06:44→20:41)
[2019-11-12] MEDS: Glycopyrrolate 15.6 MCG Cap.W.Dev Kit of 6 IH SCH ×2 (06:44→20:41)
[2019-11-12] MEDS ORDERED: Famotidine 20 MG Tab PO SCH (09:00)
[2019-11-12] MEDS ORDERED: Magnesium Sulfate/Water 2 GM in Premix Bag 1 BAG IV ONE (09:37)
[2019-11-12] MEDS ORDERED: Temazepam 7.5 MG Cap PO PRN (09:41)
--- NOTE | 2019-11-12 09:44 | PCM.PN ---
- General Info Date of Service: 11/12/19 Admission Dx/Problem (Free Text): Congestive Heart Failure Subjective Update: He did not sleep well last night due to too many noises. He had PRN sleep medication but was not given to him. However he feels better and legs are much better. Functional Status: Reports: Pain Controlled, Tolerating Diet, Ambulating, Urinating - Review of Systems General: Denies: Fever, Chills HEENT: Reports: No Symptoms Pulmonary: Reports: Cough. Denies: Shortness of Breath Cardiovascular: Reports: Edema. Denies: Chest Pain, Dyspnea on Exertion, Lightheadedness Gastrointestinal: Reports: Nausea. Denies: Abdominal Pain, Vomiting Genitourinary: Reports: No Symptoms Musculoskeletal: Reports: No Symptoms Skin: Denies: Mottled, Bruising, Rash Neurological: Reports: Gait Disturbance. Denies: Confusion, Difficulty Walking , Weakness Psychiatric: Denies: Depression, Anxiety, Agitation, Hallucinations - Patient Data Vitals - Most Recent: Last Vital Signs Temp 36.7 C 11/12/19 09:19 Pulse 87 11/12/19 09:19 Resp 18 11/12/19 09:19 BP 149/86 H 11/12/19 09:19 Pulse Ox 94 L 11/12/19 09:19 Weight - Most Recent: 78.426 kg I&O - Last 24 Hours: Intake & Output 11/11/19 11/12/19 11/12/19 22:59 06:59 14:59 Intake Total 450 Output Total 1000 Balance -550 Lab Results Last 24 Hours: Laboratory Results - last 24 hr 11/11/19 11/11/19 11/11/19 Range/Units 11:45 11:45 11:45 WBC 7.33 (4.23-9.07) K/mm3 RBC 4.42 L (4.63-6.08) M/mm3 Hgb 11.2 L (13.7-17.5) gm/dl Hct 37.1 L (40.1-51.0) % MCV 83.9 (79.0-92.2) fl MCH 25.3 L (25.7-32.2) pg MCHC 30.2 L (32.2-35.5) g/dl RDW Std Deviation 58.1 H (35.1-43.9) fL Plt Count 266 (163-337) K/mm3 MPV 8.9 L (9.4-12.3) fl Neut % (Auto) 74.2 H (34.0-67.9) % Lymph % (Auto) 15.4 L (21.8-53.1) % [place] % (Auto) 7.1 (5.3-12.2) % Eos % (Auto) 3.0 (0.8-7.0) Baso % (Auto) 0.3 (0.1-1.2) % Neut # (Auto) 5.44 H (1.78-5.38) K/mm3 Lymph # (Auto) 1.13 L (1.32-3.57) K/mm3 [place] # (Auto) 0.52 (0.30-0.82) K/mm3 Eos # (Auto) 0.22 (0.04-0.54) K/mm3 Baso # (Auto) 0.02 (0.01-0.08) K/mm3 Manual Slide Review PT 10.2 (9.7-12.0) SECONDS INR 0.93 APTT 32 H (22-31) SECONDS Sodium 142 (136-145) mEq/L Potassium 4.2 (3.5-5.1) mEq/L Chloride 102 (98-107) mEq/L Carbon Dioxide 32 (21-32) mEq/L Anion Gap 12.2 (5-15) BUN 30 H (7-18) mg/dL Creatinine 2.2 H (0.7-1.3) mg/dL Est Cr Clr Drug Dosing 35.76 mL/min Estimated GFR (MDRD) 30 (>60) mL/min BUN/Creatinine Ratio 13.6 L (14-18) Glucose 97 (80-115) mg/dL Calcium 8.7 (8.5-10.1) mg/dL Magnesium 1.8 (1.8-2.4) mg/dl Total Bilirubin 0.3 (0.2-1.0) mg/dL AST 18 (15-37) U/L ALT 25 (16-63) U/L Alkaline Phosphatase 84 (46-116) U/L CK-MB (CK-2) 1.6 (0-3.6) ng/ml Troponin I < 0.017 (0.00-0.056) ng/mL C-Reactive Protein 0.9 (<1.0) mg/dL NT-Pro-B Natriuret Pep (0-125) pg/mL Total Protein 6.6 (6.4-8.2) g/dl Albumin 2.8 L (3.4-5.0) g/dl Globulin 3.8 gm/dL Albumin/Globulin Ratio 0.7 L (1-2) Urine Color (Yellow) Urine Appearance (Clear) Urine pH (5.0-8.0) Ur Specific [place] (1.005-1.030) Urine Protein (Negative) Urine Glucose (UA) (Negative) Urine Ketones (Negative) Urine Occult Blood (Negative) Urine Nitrite (Negative) Urine Bilirubin (Negative) Urine Urobilinogen (0.2-1.0) Ur Leukocyte Esterase (Negative) Urine RBC (0-5) /hpf Urine WBC (0-5) /hpf Ur Squamous Epith Cells (0-5) /hpf Urine Bacteria (FEW) /hpf Urine Mucus (FEW) /hpf Urine Osmolality (400-1100) mosm/kg Ur Random Creatinine (30.0-125.0) mg/dL U Random Total Protein (0.0-11.8) mg/dL Ur Random Sodium (40-220) mEq/L Protein/Creatinin Ratio (0-149) mg/g 11/11/19 11/11/19 11/11/19 Range/Units 11:45 13:00 13:00 WBC (4.23-9.07) K/mm3 RBC (4.63-6.08) M/mm3 Hgb (13.7-17.5) gm/dl Hct (40.1-51.0) % MCV (79.0-92.2) fl MCH (25.7-32.2) pg MCHC (32.2-35.5) g/dl RDW Std Deviation (35.1-43.9) fL Plt Count (163-337) K/mm3 MPV (9.4-12.3) fl Neut % (Auto) (34.0-67.9) % Lymph % (Auto) (21.8-53.1) % [place] % (Auto) (5.3-12.2) % Eos % (Auto) (0.8-7.0) Baso % (Auto) (0.1-1.2) % Neut # (Auto) (1.78-5.38) K/mm3 Lymph # (Auto) (1.32-3.57) K/mm3 [place] # (Auto) (0.30-0.82) K/mm3 Eos # (Auto) (0.04-0.54) K/mm3 Baso # (Auto) (0.01-0.08) K/mm3 Manual Slide Review PT (9.7-12.0) SECONDS INR APTT (22-31) SECONDS Sodium (136-145) mEq/L Potassium (3.5-5.1) mEq/L Chloride (98-107) mEq/L Carbon Dioxide (21-32) mEq/L Anion Gap (5-15) BUN (7-18) mg/dL Creatinine (0.7-1.3) mg/dL Est Cr Clr Drug Dosing mL/min Estimated GFR (MDRD) (>60) mL/min BUN/Creatinine Ratio (14-18) Glucose (80-115) mg/dL Calcium (8.5-10.1) mg/dL Magnesium (1.8-2.4) mg/dl Total Bilirubin (0.2-1.0) mg/dL AST (15-37) U/L ALT (16-63) U/L Alkaline Phosphatase (46-116) U/L CK-MB (CK-2) (0-3.6) ng/ml Troponin I (0.00-0.056) ng/mL C-Reactive Protein (<1.0) mg/dL NT-Pro-B Natriuret Pep 4015 H (0-125) pg/mL Total Protein (6.4-8.2) g/dl Albumin (3.4-5.0) g/dl Globulin gm/dL Albumin/Globulin Ratio (1-2) Urine Color Yellow (Yellow) Urine Appearance Clear (Clear) Urine pH 6.5 (5.0-8.0) Ur Specific [place] 1.025 (1.005-1.030) Urine Protein 3+ H (Negative) Urine Glucose (UA) Negative (Negative) Urine Ketones Negative (Negative) Urine Occult Blood Trace-lysed H (Negative) Urine Nitrite Negative (Negative) Urine Bilirubin Negative (Negative) Urine Urobilinogen 0.2 (0.2-1.0) Ur Leukocyte Esterase Negative (Negative) Urine RBC 0-5 (0-5) /hpf Urine WBC 0-5 (0-5) /hpf Ur Squamous Epith Cells 0-5 (0-5) /hpf Urine Bacteria Few (FEW) /hpf Urine Mucus Few (FEW) /hpf Urine Osmolality (400-1100) mosm/kg Ur Random Creatinine 53.4 (30.0-125.0) mg/dL U Random Total Protein (0.0-11.8) mg/dL Ur Random Sodium 86 (40-220) mEq/L Protein/Creatinin Ratio (0-149) mg/g 11/11/19 11/12/19 11/12/19 Range/Units 13:00 06:12 06:12 WBC 6.14 (4.23-9.07) K/mm3 RBC 4.73 (4.63-6.08) M/mm3 Hgb 11.8 L (13.7-17.5) gm/dl Hct 39.1 L (40.1-51.0) % MCV 82.7 (79.0-92.2) fl MCH 24.9 L (25.7-32.2) pg MCHC 30.2 L (32.2-35.5) g/dl RDW Std Deviation 58.7 H (35.1-43.9) fL Plt Count 285 (163-337) K/mm3 MPV 8.9 L (9.4-12.3) fl Neut % (Auto) 72.7 H (34.0-67.9) % Lymph % (Auto) 15.1 L (21.8-53.1) % [place] % (Auto) 8.6 (5.3-12.2) % Eos % (Auto) 3.1 (0.8-7.0) Baso % (Auto) 0.3 (0.1-1.2) % Neut # (Auto) 4.46 (1.78-5.38) K/mm3 Lymph # (Auto) 0.93 L (1.32-3.57) K/mm3 [place] # (Auto) 0.53 (0.30-0.82) K/mm3 Eos # (Auto) 0.19 (0.04-0.54) K/mm3 Baso # (Auto) 0.02 (0.01-0.08) K/mm3 Manual Slide Review PT (9.7-12.0) SECONDS INR APTT (22-31) SECONDS Sodium 140 (136-145) mEq/L Potassium 3.6 (3.5-5.1) mEq/L Chloride 101 (98-107) mEq/L Carbon Dioxide 33 H (21-32) mEq/L Anion Gap 9.6 (5-15) BUN 30 H (7-18) mg/dL Creatinine 2.3 H (0.7-1.3) mg/dL Est Cr Clr Drug Dosing 34.21 mL/min Estimated GFR (MDRD) 29 (>60) mL/min BUN/Creatinine Ratio 13.0 L (14-18) Glucose 98 (80-115) mg/dL Calcium 8.6 (8.5-10.1) mg/dL Magnesium 1.7 L (1.8-2.4) mg/dl Total Bilirubin (0.2-1.0) mg/dL AST (15-37) U/L ALT (16-63) U/L Alkaline Phosphatase (46-116) U/L CK-MB (CK-2) (0-3.6) ng/ml Troponin I (0.00-0.056) ng/mL C-Reactive Protein (<1.0) mg/dL NT-Pro-B Natriuret Pep (0-125) pg/mL Total Protein (6.4-8.2) g/dl Albumin (3.4-5.0) g/dl Globulin gm/dL Albumin/Globulin Ratio (1-2) Urine Color (Yellow) Urine Appearance (Clear) Urine pH (5.0-8.0) Ur Specific [place] (1.005-1.030) Urine Protein (Negative) Urine Glucose (UA) (Negative) Urine Ketones (Negative) Urine Occult Blood (Negative) Urine Nitrite (Negative) Urine Bilirubin (Negative) Urine Urobilinogen (0.2-1.0) Ur Leukocyte Esterase (Negative) Urine RBC (0-5) /hpf Urine WBC (0-5) /hpf Ur Squamous Epith Cells (0-5) /hpf Urine Bacteria (FEW) /hpf Urine Mucus (FEW) /hpf Urine Osmolality 374 L (400-1100) mosm/kg Ur Random Creatinine 52.5 (30.0-125.0) mg/dL U Random Total Protein 291.6 H (0.0-11.8) mg/dL Ur Random Sodium (40-220) mEq/L Protein/Creatinin Ratio 5554.3 H (0-149) mg/g 11/12/19 Range/Units 06:12 WBC (4.23-9.07) K/mm3 RBC (4.63-6.08) M/mm3 Hgb (13.7-17.5) gm/dl Hct (40.1-51.0) % MCV (79.0-92.2) fl MCH (25.7-32.2) pg MCHC (32.2-35.5) g/dl RDW Std Deviation (35.1-43.9) fL Plt Count (163-337) K/mm3 MPV (9.4-12.3) fl Neut % (Auto) (34.0-67.9) % Lymph % (Auto) (21.8-53.1) % [place] % (Auto) (5.3-12.2) % Eos % (Auto) (0.8-7.0) Baso % (Auto) (0.1-1.2) % Neut # (Auto) (1.78-5.38) K/mm3 Lymph # (Auto) (1.32-3.57) K/mm3 [place] # (Auto) (0.30-0.82) K/mm3 Eos # (Auto) (0.04-0.54) K/mm3 Baso # (Auto) (0.01-0.08) K/mm3 Manual Slide Review PT (9.7-12.0) SECONDS INR APTT (22-31) SECONDS Sodium (136-145) mEq/L Potassium (3.5-5.1) mEq/L Chloride (98-107) mEq/L Carbon Dioxide (21-32) mEq/L Anion Gap (5-15) BUN (7-18) mg/dL Creatinine (0.7-1.3) mg/dL Est Cr Clr Drug Dosing mL/min Estimated GFR (MDRD) (>60) mL/min BUN/Creatinine Ratio (14-18) Glucose (80-115) mg/dL Calcium (8.5-10.1) mg/dL Magnesium (1.8-2.4) mg/dl Total Bilirubin (0.2-1.0) mg/dL AST (15-37) U/L ALT (16-63) U/L Alkaline Phosphatase (46-116) U/L CK-MB (CK-2) (0-3.6) ng/ml Troponin I (0.00-0.056) ng/mL C-Reactive Protein (<1.0) mg/dL NT-Pro-B Natriuret Pep 6594 H (0-125) pg/mL Total Protein (6.4-8.2) g/dl Albumin (3.4-5.0) g/dl Globulin gm/dL Albumin/Globulin Ratio (1-2) Urine Color (Yellow) Urine Appearance (Clear) Urine pH (5.0-8.0) Ur Specific [place] (1.005-1.030) Urine Protein (Negative) Urine Glucose (UA) (Negative) Urine Ketones (Negative) Urine Occult Blood (Negative) Urine Nitrite (Negative) Urine Bilirubin (Negative) Urine Urobilinogen (0.2-1.0) Ur Leukocyte Esterase (Negative) Urine RBC (0-5) /hpf Urine WBC (0-5) /hpf Ur Squamous Epith Cells (0-5) /hpf Urine Bacteria (FEW) /hpf Urine Mucus (FEW) /hpf Urine Osmolality (400-1100) mosm/kg Ur Random Creatinine (30.0-125.0) mg/dL U Random Total Protein (0.0-11.8) mg/dL Ur Random Sodium (40-220) mEq/L Protein/Creatinin Ratio (0-149) mg/g Med Orders - Current: Current Medications Acetaminophen (Tylenol) 650 mg PO Q4H PRN PRN Reason: Pain (Mild 1-3)/fever Hydrocodone Bitart/Acetaminophen ([place] 325-5 Mg) 1 tab PO Q4H PRN PRN Reason: Pain (moderate 4-6) Albuterol (Proventil Hfa) 0 gm INH Q6H PRN PRN Reason: Dyspnea Albuterol/Ipratropium (Duoneb 3.0-0.5 Mg/3 Ml) 3 ml NEB Q4H PRN PRN Reason: Shortness Of Breath/wheezing Last Admin: 11/11/19 21:22 Dose: 3 ml Aspirin (Aspirin) 81 mg PO DAILY [facility] Bisacodyl (Dulcolax) 5 mg PO DAILY PRN PRN Reason: Constipation Bumetanide (Bumex) 1 mg PO BIDDIURETIC [facility] Last Admin: 11/12/19 06:05 Dose: 1 mg Carvedilol (Coreg) 25 mg PO DAILY [facility] Famotidine (Pepcid) 20 mg PO DAILY [facility] Glycopyrrolate (Seebri Neohaler) 15.6 mcg IH BIDRT [facility] Last Admin: 11/12/19 06:44 Dose: 1 cap Guaifenesin/Phenylephrine HCl (Robitussin Dm) 10 ml PO Q4H PRN PRN Reason: Cough Heparin Sodium (Porcine) (Heparin Sodium) 5,000 units SUBCUT Q12H [facility] Last Admin: 11/11/19 22:34 Dose: 5,000 units Hydromorphone HCl (Dilaudid) 0.25 mg IVPUSH Q2H PRN PRN Reason: Pain (severe 7-10) Promethazine HCl 6.25 mg/ (Sodium Chloride) 50.25 mls @ 100 mls/hr IV Q6H PRN PRN Reason: Nausea/Vomiting Magnesium Sulfate 2 gm/ Premix 50 mls @ 25 mls/hr IV ONETIME ONE Stop: 11/12/19 11:36 Magnesium Hydroxide (Milk Of Magnesia) 30 ml PO Q12H PRN PRN Reason: Constipation Mometasone Furoate/Formoterol Fumar (Dulera 200-5 Mcg) 2 puff IH BIDRT [facility] Last Admin: 11/12/19 06:44 Dose: 2 puff Nortriptyline HCl (Nortriptyline) 50 mg PO BEDTIME [facility] Last Admin: 11/11/19 22:34 Dose: Not Given Ondansetron HCl (Zofran) 4 mg IV Q6H PRN PRN Reason: Nausea/Vomiting Polyethylene Glycol (Miralax) 17 gm PO DAILY PRN PRN Reason: Constipation Senna/Docusate Sodium (Senna Plus) 1 tab PO BID PRN PRN Reason: Constipation Sodium Chloride (Saline Flush) 10 ml FLUSH ASDIRECTED PRN PRN Reason: Keep Vein Open Last Admin: 11/11/19 11:59 Dose: 10 ml Temazepam (Restoril) 15 mg PO BEDTIME PRN PRN Reason: Sleep Discontinued Medications Albuterol/Ipratropium (Duoneb 3.0-0.5 Mg/3 Ml) 3 ml NEB ONETIME ONE Stop: 11/11/19 12:09 Last Admin: 11/11/19 12:14 Dose: 3 ml Famotidine (Pepcid) 20 mg PO BID BOBBI Furosemide (Lasix) 40 mg IVPUSH NOW ONE Stop: 11/11/19 12:05 Last Admin: 11/11/19 12:26 Dose: 40 mg Albumin Human (Flexbumin 25%) 12.5 gm in 50 mls @ 100 mls/hr IV ONETIME ONE Stop: 11/11/19 20:30 Last Admin: 11/11/19 21:35 Dose: 100 mls/hr Mometasone Furoate/Formoterol Fumar (Dulera 200-5 Mcg) 2 puff IH BID BOBBI Non-Formulary Medication (Cannabidiol (Cbd) Extract [Cbd Oil]) 1 drop PO BEDTIME BOBBI Last Admin: 11/12/19 07:34 Dose: Not Given Temazepam (Restoril) 7.5 mg PO BEDTIME PRN PRN Reason: Sleep - Exam Quality Assessment: Supplemental Oxygen General: Alert, Oriented, Cooperative, No Acute Distress HEENT: Pupils Equal, Pupils Reactive, EOMI, Mucous Membr. Moist/[place] Neck: Supple Lungs: Clear to Auscultation, Normal Respiratory Effort Cardiovascular: Regular Rate, Regular Rhythm GI/Abdominal Exam: Normal Bowel Sounds, Soft, Non-Tender, No Organomegaly, No Distention, No Abnormal Bruit, No Mass (Male) Exam: Deferred Back Exam: Normal Inspection, Decreased Range of Motion Extremities: Normal Inspection, Normal Range of Motion, Non-Tender, Normal Capillary Refill, Pedal Edema. No: Joint Swelling, Leg Pain, Redness Skin: Warm, Dry, Intact Neurological: No New Focal Deficit. No: Normal Gait Psy/Mental Status: Alert, Normal Affect, Normal Mood Sepsis Event Note - Evaluation Sepsis Screening Result: No Definite Risk - Focused Exam Vital Signs: Vital Signs Temp Pulse Resp BP Pulse Ox Pulse Ox 11/12/19 09:19 36.7 C 87 18 149/86 H 94 L 11/12/19 06:46 96 11/12/19 06:11 87 22 H 155/94 H 92 L Date Exam was Performed: 11/12/19 Time Exam was Performed: 15:46 - Problem List Review Problem List Initiated/Reviewed/Updated: Yes - My Orders Last 24 Hours: My Active Orders 11/11/19 13:00 EOSINOPHILS, URINE Stat UREA NITROGEN, URINE Stat 11/11/19 19:54 Height and Weight [RC] 04 Intake and Output [RC] 04,16 Oxygen Therapy [RC] PRN Up With Assistance [RC] ASDIRECTED VTE/DVT Education [RC] DAILY Vital Signs [RC] Q4HR Consult to Case Management/Senior Production Supervisor [CONS] Routine Consult to Animal Handler [CONS] Routine Consult to Spiritual Care [CONS] Routine OT Evaluation and Treatment [CONS] Routine PT Evaluation and Treatment [CONS] Routine Respiratory Care Assess and Treatment [CONS] Routine Acetaminophen [Tylenol] 650 mg PO Q4H PRN Acetaminophen/HYDROcodone [[place] 325-5 MG] 1 tab PO Q4H PRN Albuterol/Ipratropium [DuoNeb 3.0-0.5 MG/3 ML] 3 ml NEB Q4H PRN Docusate Sodium/Sennosides [Senna Plus] 1 tab PO BID PRN HYDROmorphone [Dilaudid] 0.25 mg IVPUSH Q2H PRN Magnesium Hydroxide [Milk of Magnesia] 30 ml PO Q12H PRN Ondansetron [Zofran] 4 mg IV Q6H PRN Polyethylene Glycol 3350 [MiraLAX] 17 gm PO DAILY PRN Promethazine [Phenergan] 6.25 mg Sodium Chloride 0.9% [Normal Saline] 50 ml IV Q6H bisacodyL [Dulcolax] 5 mg PO DAILY PRN Resuscitation Status Routine 11/11/19 19:55 Cardiac Monitoring [RC] INTERMITTENT Pulse Oximetry [RC] PRN Antiembolic Hose [OM.PC] Per Unit Routine 11/11/19 19:56 Antiembolic Devices [RC] BID RT Aerosol Therapy [RC] ASDIRECTED 11/11/19 20:20 Albuterol [Proventil HFA] 0 gm INH Q6H PRN 11/11/19 20:43 CULTURE SPUTUM + SMEAR [RM] Routine Dextromethorphan/guaiFENesin [Robitussin DM] 10 ml PO Q4H PRN 11/11/19 20:44 Incentive Spirometry [RT Incentive Spirometry] [RC] ASDIRECTED 11/11/19 21:00 Mometasone/Formoterol [Dulera 200-5 MCG] 2 puff IH BIDRT Nortriptyline 50 mg PO BEDTIME 11/11/19 21:40 RESPIRATORY PANEL PCR [MREF] Routine 11/11/19 22:00 Heparin Sodium 5,000 units SUBCUT Q12H 11/11/19 22:22 Precautions [COMM] Routine 11/11/19 Dinner 2 Gram Sodium Diet [DIET] Heart Healthy Diet [DIET] 11/12/19 06:00 Bumetanide [Bumex] 1 mg PO BIDDIURETIC Glycopyrrolate [Seebri Neohaler] 15.6 mcg IH BIDRT 11/12/19 07:00 Echo Comp wo Cont [US] Routine Retroperitoneal Comp [US] Routine 11/12/19 09:00 Aspirin 81 mg PO DAILY Famotidine [Pepcid] 20 mg PO DAILY carvediloL [Coreg] 25 mg PO DAILY 11/12/19 09:37 Magnesium Sulfate/Water [Magnesium Sulfate in Water Premix] 2 gm Premix Bag 1 bag IV ONETIME 11/12/19 09:39 ALBUMIN [CHEM] Stat 11/12/19 09:41 Temazepam [Restoril] 15 mg PO BEDTIME PRN 11/12/19 Breakfast Fluid Restriction [DIET] 11/13/19 05:00 PRO B-TYPE NATRIUR PEPT,BNPPRO [CHEM] DAILY 11/13/19 05:11 CBC WITH AUTO DIFF [HEME] AM CMP [COMPREHENSIVE METABOLIC PN,CMP] [CHEM] AM MAGNESIUM [CHEM] AM 11/14/19 05:00 PRO B-TYPE NATRIUR PEPT,BNPPRO [CHEM] DAILY 11/14/19 05:11 CBC WITH AUTO DIFF [HEME] AM CMP [COMPREHENSIVE METABOLIC PN,CMP] [CHEM] AM MAGNESIUM [CHEM] AM 11/14/19 07:00 CBC W/O DIFF,HEMOGRAM [HEME] MOTH@0700 11/15/19 05:00 PRO B-TYPE NATRIUR PEPT,BNPPRO [CHEM] DAILY 11/15/19 05:11 CBC WITH AUTO DIFF [HEME] AM CMP [COMPREHENSIVE METABOLIC PN,CMP] [CHEM] AM MAGNESIUM [CHEM] AM 11/16/19 05:00 PRO B-TYPE NATRIUR PEPT,BNPPRO [CHEM] DAILY 11/16/19 05:11 CBC WITH AUTO DIFF [HEME] AM CMP [COMPREHENSIVE METABOLIC PN,CMP] [CHEM] AM MAGNESIUM [CHEM] AM 11/17/19 05:11 CBC WITH AUTO DIFF [HEME] AM CMP [COMPREHENSIVE METABOLIC PN,CMP] [CHEM] AM MAGNESIUM [CHEM] AM 11/18/19 05:11 CBC WITH AUTO DIFF [HEME] AM CMP [COMPREHENSIVE METABOLIC PN,CMP] [CHEM] AM MAGNESIUM [CHEM] AM 11/18/19 07:00 CBC W/O DIFF,HEMOGRAM [HEME] MOTH@0700 11/21/19 07:00 CBC W/O DIFF,HEMOGRAM [HEME] MOTH@0700 11/25/19 07:00 CBC W/O DIFF,HEMOGRAM [HEME] MOTH@0700 11/28/19 07:00 CBC W/O DIFF,HEMOGRAM [HEME] MOTH@0700 12/02/19 07:00 CBC W/O DIFF,HEMOGRAM [HEME] MOTH@0700 - Plan Plan:: Acute: Probable Congestive Heart Failure with unknown EF Acute on Chronic Has underlying cardiomyopathy ProBNP of 4015-->6594 with peripheral signs of significant edema 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 Lungs clear to auscultation Plan: Heart failure regimen with gentle diuresis, 2D echo and AHA diet Mild COPD Exacerbation Worsening SOB and Dyspnea Has inhalers at home and supplemental O2 Plan: Bronchodilators, decongestant/expectorant, sputum culture, viral panel, RT care, pulmonary toilet, and serial CXR as indicated S/p Dyspnea Angina Equivalent vs PE Has hx/o CAD S/p CABG and Pulmonary HTN Plan: Supplemental O2, Low dose IV Morphine for symptomatic control, ACS work up , and possible D-dimer level if indicated CAD S/p CABG in 2012, Stable He takes ASA and carvedilol Plan: Resume home cardiac medications and AHA diet Pulmonary HTN Has COPD and Chronic Respiratory Failure Continue Supplemental O2 and Bronchodilators 2D echo today today Respiratory Failure, At baseline Has underlying COPD Usually on 4L NC at home Titrate to keep O2 sat > 92% CHRISTIANNE vs CKD No baseline for comparison BUN 30/Cr of 2.2 ATN vs AIN Losartan 100 mg po daily-will hold for now 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 Two cysts are noted within the right kidney. Echogenic cortex of the left kidney compatible with medical renal disease Avoid nephrotoxic agents Gentle diuresis if possible 10 Lbs Weight Gain Has significant edema Happened in the course of 6 months They discontinued his diuretic Plan: to diurese him and limit salt and fluid intake Proteinuria 2/2 CKD 3+ protein on UA Suspect due to nephrotic syndrome: Severe swelling, weight gain, and fatigue He is on Losartan 100 mg po daily-resume tomorrow Carries no hx/o diabetes Urine random Total Protein: 291.6 Protein/Creatinin Ratio: 5554.3 Need to see nephrology after discharge Hypoalbuminemia, Improved Albumin of 2.8-->3.1 IV Albumin to improve his peripheral swelling Normocytic hypochromic Anemia, Stable Hgb of 11 grams --> 1.8 grams Likely carries a hx/o anemia of chronic disease with his underlying CKD of Stage 3 Will monitor Hypomagnesemia Mg of 1.7 Chronic: HTN, HLD, PVD, CAD S/p CABG in 2012, Hx/o DC, COPD, Hx/o DC, Cardiomyopathy (likely Non-ischemic), Pulmonary HTN, TAA, BPH, Anxiety, Depression and Hx/o PTSD Plan: Based on additional labs and test results, I do think patient is in acute heart failure. Continue to diuretic, salt/fluid restriction, daily weight check , and IS/Os. IV Albumin infusion as indicated. Dietary consult for proteinuria. PT/OT for deconditioning. RT to assess and treat respiratory status. CM/SW for d /c planning. Code status DNI. Prognosis is good at this point.
[2019-11-12] MEDS: Carvedilol 12.5 MG Tab PO SCH (09:48)
[2019-11-12] MEDS: Aspirin 81 MG Tab.Chew PO SCH (09:48)
[2019-11-12] MEDS: Famotidine 10 MG Tab PO SCH (09:48)
[2019-11-12] MEDS: Heparin Sodium 5,000 Units/ML Vial SUBCUT SCH ×2 (09:48→21:25)
[2019-11-12] MEDS ORDERED: Tamsulosin 0.4 MG Cap.ER PO ONE ×2 (10:24→13:00)
[2019-11-12] MEDS ORDERED: Albumin 25% 12.5 GM/50 ML BAG IV ONE ×2 (14:51→21:00)
--- NOTE | 2019-11-12 14:52 | US ---
Renal ultrasound: Multiple real-time images of the kidneys were obtained. Comparison: No prior renal ultrasound. Right kidney is small and atrophic and shows no resistivity indices. Two cysts noted within the right kidney measuring 1.5 cm and 1.9 cm. Length of the right kidney is 6.2 cm. Left kidney appears more normal in size. Cortical thickness is preserved. Renal cortex is echogenic suspicious for medical renal disease. Resistivity indices are felt to be within normal limits within the left kidney. Left kidney length is 10.2 cm. Prevoid bladder volume is 782 mL and post void bladder volume is 440 mL. Impression: 1. Atrophic left kidney showing lack of resistivity indices. Two cysts are noted within the right kidney. 2. Echogenic cortex of the left kidney compatible with medical renal disease. 3. Significant post void residual within the bladder. Diagnostic code #3 This report was dictated in [place] Standard Time
[2019-11-12] MEDS ORDERED: QUEtiapine 25 MG Tab PO ONE (20:47)
[2019-11-12] MEDS ORDERED: Hydrocortisone 1% Crm 30 GM Tube TOP PRN ×2 (20:59→21:05)
[2019-11-12] MEDS ORDERED: LORazepam 2 MG/ML SDV IVPUSH ONE (21:00)
[2019-11-12] MEDS: Nortriptyline 25 MG Cap PO SCH (21:19)
[2019-11-13] MEDS ORDERED: LORazepam 2 MG/ML SDV IVPUSH ONE (00:11)
[2019-11-13] MEDS ORDERED: diphenhydrAMINE 50 MG/ML SDV IVPUSH ONE ×2 (00:12→21:00)
[2019-11-13] MEDS: Albuterol/Ipratropium 3.0-0.5 MG/3 ML Neb Soln NEB PRN (01:47)
[2019-11-13] MEDS: Bumetanide 1 MG Tab PO SCH ×2 (06:34→14:07)
[2019-11-13] MEDS: Glycopyrrolate 15.6 MCG Cap.W.Dev Kit of 6 IH SCH ×2 (06:36→19:59)
[2019-11-13] MEDS: Formoterol/Mometasone 200-5 MCG 8.8 GM Inhaler IH SCH ×2 (06:36→19:59)
[2019-11-13] MEDS ORDERED: Albumin 25% 12.5 GM/50 ML BAG IV ONE ×2 (08:00→18:00)
--- NOTE | 2019-11-13 08:05 | PCM.PN ---
- General Info Date of Service: 11/13/19 Admission Dx/Problem (Free Text): Congestive Heart Failure Subjective Update: Patient sleep well last night. He actually thank me for it. He is very happy with how his legs looks like right now. His K is slightly low at 3.3. Functional Status: Reports: Pain Controlled, Tolerating Diet, Ambulating, Urinating, New Symptoms - Review of Systems General: Denies: Fever, Weakness, Fatigue, Malaise, Chills HEENT: Reports: No Symptoms Pulmonary: Reports: Shortness of Breath (baseline) Cardiovascular: Reports: Edema. Denies: Chest Pain, Dyspnea on Exertion, Lightheadedness Gastrointestinal: Denies: Abdominal Pain, Nausea, Vomiting Genitourinary: Reports: No Symptoms Musculoskeletal: Reports: No Symptoms Skin: Denies: Cyanosis, Diaphoresis, Rash Neurological: Denies: Confusion, Numbness, Weakness, Gait Disturbance Psychiatric: Denies: Anxiety, Agitation, Hallucinations Systems Review Comment:: He has no new complaints. - Patient Data Vitals - Most Recent: Last Vital Signs Temp 36.7 C 11/12/19 22:16 Pulse 105 H 11/13/19 03:11 Resp 20 11/13/19 03:11 BP 155/87 H 11/13/19 03:11 Pulse Ox 94 L 11/13/19 06:38 Weight - Most Recent: 76.385 kg I&O - Last 24 Hours: Intake & Output 11/12/19 11/13/19 11/13/19 22:59 06:59 14:59 Intake Total 820 100 Output Total 1775 795 Balance -955 -695 Lab Results Last 24 Hours: Laboratory Results - last 24 hr 11/11/19 11/11/19 11/11/19 Range/Units 13:00 13:00 21:40 WBC (4.23-9.07) K/mm3 RBC (4.63-6.08) M/mm3 Hgb (13.7-17.5) gm/dl Hct (40.1-51.0) % MCV (79.0-92.2) fl MCH (25.7-32.2) pg MCHC (32.2-35.5) g/dl RDW Std Deviation (35.1-43.9) fL Plt Count (163-337) K/mm3 MPV (9.4-12.3) fl Neut % (Auto) (34.0-67.9) % Lymph % (Auto) (21.8-53.1) % Payette % (Auto) (5.3-12.2) % Eos % (Auto) (0.8-7.0) Baso % (Auto) (0.1-1.2) % Neut # (Auto) (1.78-5.38) K/mm3 Lymph # (Auto) (1.32-3.57) K/mm3 [place]ette # (Auto) (0.30-0.82) K/mm3 Eos # (Auto) (0.04-0.54) K/mm3 Baso # (Auto) (0.01-0.08) K/mm3 Albumin (3.4-5.0) g/dl Ur Eosinophil Smear Eos absent (Eos Absent) % EOS Ur Urea Nitrogen Conc 349 mg/dL Adenovirus (PCR) Not detected (Not Detected) B. pertussis DNA (PCR) Not detected (Not Detected) B.parapertussis DNA PCR Not detected (Not Detected) C. pneumoniae DNA (PCR) Not detected (Not Detected) Coronavirus (PCR) Not detected (Not Detected) Human Metapneumovir PCR Not detected (Not Detected) Influenza A (RT-PCR) Not detected (Not Detected) Influenza B (RT-PCR) Not detected (Not Detected) M. pneumoniae (PCR) Not detected (Not Detected) Parainfluen 1,2,3,4 PCR Not detected (Not Detected) RSV (PCR) Not detected (Not Detected) Entero/Rhino (PCR) Not detected (Not Detected) 11/12/19 11/13/19 Range/Units 06:12 06:30 WBC 5.71 (4.23-9.07) K/mm3 RBC 4.18 L (4.63-6.08) M/mm3 Hgb 10.5 L (13.7-17.5) gm/dl Hct 35.0 L (40.1-51.0) % MCV 83.7 (79.0-92.2) fl MCH 25.1 L (25.7-32.2) pg MCHC 30.0 L (32.2-35.5) g/dl RDW Std Deviation 58.2 H (35.1-43.9) fL Plt Count 243 (163-337) K/mm3 MPV 8.7 L (9.4-12.3) fl Neut % (Auto) 66.4 (34.0-67.9) % Lymph % (Auto) 18.4 L (21.8-53.1) % Payette % (Auto) 10.7 (5.3-12.2) % Eos % (Auto) 3.9 (0.8-7.0) Baso % (Auto) 0.4 (0.1-1.2) % Neut # (Auto) 3.80 (1.78-5.38) K/mm3 Lymph # (Auto) 1.05 L (1.32-3.57) K/mm3 [place]ette # (Auto) 0.61 (0.30-0.82) K/mm3 Eos # (Auto) 0.22 (0.04-0.54) K/mm3 Baso # (Auto) 0.02 (0.01-0.08) K/mm3 Albumin 3.1 L (3.4-5.0) g/dl Ur Eosinophil Smear (Eos Absent) % EOS Ur Urea Nitrogen Conc mg/dL Adenovirus (PCR) (Not Detected) B. pertussis DNA (PCR) (Not Detected) B.parapertussis DNA PCR (Not Detected) C. pneumoniae DNA (PCR) (Not Detected) Coronavirus (PCR) (Not Detected) Human Metapneumovir PCR (Not Detected) Influenza A (RT-PCR) (Not Detected) Influenza B (RT-PCR) (Not Detected) M. pneumoniae (PCR) (Not Detected) Parainfluen 1,2,3,4 PCR (Not Detected) RSV (PCR) (Not Detected) Entero/Rhino (PCR) (Not Detected) Med Orders - Current: Current Medications Acetaminophen (Tylenol) 650 mg PO Q4H PRN PRN Reason: Pain (Mild 1-3)/fever Hydrocodone Bitart/Acetaminophen (Merrill 325-5 Mg) 1 tab PO Q4H PRN PRN Reason: Pain (moderate 4-6) Albuterol (Proventil Hfa) 0 gm INH Q6H PRN PRN Reason: Dyspnea Albuterol/Ipratropium (Duoneb 3.0-0.5 Mg/3 Ml) 3 ml NEB Q4H PRN PRN Reason: Shortness Of Breath/wheezing Last Admin: 11/13/19 01:47 Dose: 3 ml Aspirin (Aspirin) 81 mg PO DAILY [facility] Last Admin: 11/12/19 09:48 Dose: 81 mg Bisacodyl (Dulcolax) 5 mg PO DAILY PRN PRN Reason: Constipation Bumetanide (Bumex) 1 mg PO BIDDIURETIC [facility] Last Admin: 11/13/19 06:34 Dose: 1 mg Carvedilol (Coreg) 25 mg PO DAILY [facility] Last Admin: 11/12/19 09:48 Dose: 25 mg Famotidine (Pepcid) 20 mg PO DAILY [facility] Last Admin: 11/12/19 09:48 Dose: 20 mg Glycopyrrolate (Seebri Neohaler) 15.6 mcg IH BIDRT [facility] Last Admin: 11/13/19 06:36 Dose: 1 cap Guaifenesin/Phenylephrine HCl (Robitussin Dm) 10 ml PO Q4H PRN PRN Reason: Cough Heparin Sodium (Porcine) (Heparin Sodium) 5,000 units SUBCUT Q12H [facility] Last Admin: 11/12/19 21:25 Dose: 5,000 units Hydrocortisone (Hydrocortisone 1% Crm) 3 gm TOP ASDIRECTED PRN PRN Reason: Itching Last Admin: 11/12/19 21:30 Dose: 3 gram Hydromorphone HCl (Dilaudid) 0.25 mg IVPUSH Q2H PRN PRN Reason: Pain (severe 7-10) Promethazine HCl 6.25 mg/ (Sodium Chloride) 50.25 mls @ 100 mls/hr IV Q6H PRN PRN Reason: Nausea/Vomiting Albumin Human (Flexbumin 25%) 12.5 gm in 50 mls @ 100 mls/hr IV ONETIME ONE Stop: 11/13/19 08:29 Last Admin: 11/13/19 07:52 Dose: 100 mls/hr Magnesium Hydroxide (Milk Of Magnesia) 30 ml PO Q12H PRN PRN Reason: Constipation Mometasone Furoate/Formoterol Fumar (Dulera 200-5 Mcg) 2 puff IH BIDRT [facility] Last Admin: 11/13/19 06:36 Dose: 2 puff Nortriptyline HCl (Nortriptyline) 50 mg PO BEDTIME [facility] Last Admin: 11/12/19 21:19 Dose: Not Given Ondansetron HCl (Zofran) 4 mg IV Q6H PRN PRN Reason: Nausea/Vomiting Polyethylene Glycol (Miralax) 17 gm PO DAILY PRN PRN Reason: Constipation Senna/Docusate Sodium (Senna Plus) 1 tab PO BID PRN PRN Reason: Constipation Sodium Chloride (Saline Flush) 10 ml FLUSH ASDIRECTED PRN PRN Reason: Keep Vein Open Last Admin: 11/11/19 11:59 Dose: 10 ml Tamsulosin HCl (Flomax) 0.4 mg PO PCBREAKFAST BOBBI Discontinued Medications Albuterol/Ipratropium (Duoneb 3.0-0.5 Mg/3 Ml) 3 ml NEB ONETIME ONE Stop: 11/11/19 12:09 Last Admin: 11/11/19 12:14 Dose: 3 ml Diphenhydramine HCl (Benadryl) 25 mg IVPUSH ONETIME ONE Stop: 11/13/19 00:13 Last Admin: 11/13/19 00:24 Dose: 25 mg Famotidine (Pepcid) 20 mg PO BID BOBBI Furosemide (Lasix) 40 mg IVPUSH NOW ONE Stop: 11/11/19 12:05 Last Admin: 11/11/19 12:26 Dose: 40 mg Hydrocortisone (Hydrocortisone 1% Crm) 30 gm TOP ASDIRECTED PRN PRN Reason: Itching Albumin Human (Flexbumin 25%) 12.5 gm in 50 mls @ 100 mls/hr IV ONETIME ONE Stop: 11/11/19 20:30 Last Admin: 11/11/19 21:35 Dose: 100 mls/hr Magnesium Sulfate 2 gm/ Premix 50 mls @ 25 mls/hr IV ONETIME ONE Stop: 11/12/19 11:36 Last Admin: 11/12/19 09:53 Dose: 25 mls/hr Albumin Human (Flexbumin 25%) 12.5 gm in 50 mls @ 100 mls/hr IV ONETIME ONE Stop: 11/12/19 15:20 Last Admin: 11/12/19 16:34 Dose: 100 mls/hr Albumin Human (Flexbumin 25%) 12.5 gm in 50 mls @ 100 mls/hr IV ONETIME ONE Stop: 11/12/19 21:29 Last Admin: 11/12/19 21:27 Dose: 100 mls/hr Lorazepam (Ativan) 1 mg IVPUSH ONETIME ONE Stop: 11/12/19 21:01 Last Admin: 11/12/19 21:21 Dose: 1 mg Lorazepam (Ativan) 1 mg IVPUSH BEDTIME ONE Stop: 11/13/19 00:12 Last Admin: 11/13/19 00:26 Dose: 1 mg Mometasone Furoate/Formoterol Fumar (Dulera 200-5 Mcg) 2 puff IH BID BOBBI Non-Formulary Medication (Cannabidiol (Cbd) Extract [Cbd Oil]) 1 drop PO BEDTIME BOBBI Last Admin: 11/12/19 07:34 Dose: Not Given Quetiapine Fumarate (Seroquel) 50 mg PO ONETIME ONE Stop: 11/12/19 20:48 Last Admin: 11/12/19 21:19 Dose: 50 mg Tamsulosin HCl (Flomax) 0.4 mg PO ONETIME ONE Stop: 11/12/19 10:25 Last Admin: 11/12/19 13:30 Dose: Not Given Tamsulosin HCl (Flomax) 0.4 mg PO ONETIME ONE Stop: 11/12/19 13:01 Last Admin: 11/12/19 13:31 Dose: 0.4 mg Temazepam (Restoril) 7.5 mg PO BEDTIME PRN PRN Reason: Sleep Temazepam (Restoril) 15 mg PO BEDTIME PRN PRN Reason: Sleep - Exam General: Alert, Oriented, Cooperative, No Acute Distress HEENT: Pupils Equal, Pupils Reactive, EOMI, Mucous Membr. Moist/Rentchler Neck: Supple Lungs: Clear to Auscultation, Normal Respiratory Effort, Other (sternal scar) Cardiovascular: Regular Rate, Regular Rhythm GI/Abdominal Exam: Normal Bowel Sounds, Soft, Non-Tender, No Organomegaly, No Distention, No Abnormal Bruit (Male) Exam: Deferred Back Exam: Normal Inspection, Decreased Range of Motion Extremities: Normal Inspection, Normal Range of Motion, Non-Tender, Normal Capillary Refill, Pedal Edema, Other (imoroving peripheral edema) Peripheral Pulses: 1+: Dorsalis Pedis (L), Dorsalis Pedis (R) Skin: Warm, Dry, Intact Neurological: No New Focal Deficit Psy/Mental Status: Alert, Normal Affect, Normal Mood Sepsis Event Note - Evaluation Sepsis Screening Result: No Definite Risk - Focused Exam Vital Signs: Vital Signs Temp Pulse Resp BP Pulse Ox Pulse Ox 11/13/19 06:38 94 L 11/13/19 03:11 105 H 20 155/87 H 92 L 11/13/19 01:50 92 L 11/12/19 22:16 36.7 C 95 20 146/73 H 90 L 11/12/19 21:18 36.9 C 87 20 156/80 H 90 L 11/12/19 20:46 90 L 11/12/19 20:42 90 L Date Exam was Performed: 11/13/19 Time Exam was Performed: 18:27 - Problem List Review Problem List Initiated/Reviewed/Updated: Yes - My Orders Last 24 Hours: My Active Orders 11/12/19 09:00 Aspirin 81 mg PO DAILY Famotidine [Pepcid] 20 mg PO DAILY carvediloL [Coreg] 25 mg PO DAILY 11/12/19 21:05 Hydrocortisone [Hydrocortisone 1% Crm] 3 gm TOP ASDIRECTED PRN 11/13/19 06:30 CMP [COMPREHENSIVE METABOLIC PN,CMP] [CHEM] AM MAGNESIUM [CHEM] AM PRO B-TYPE NATRIUR PEPT,BNPPRO [CHEM] DAILY 11/13/19 08:00 Albumin 25% [Flexbumin 25%] 12.5 gm in 50 ml IV ONETIME 11/13/19 10:00 Tamsulosin [Flomax] 0.4 mg PO PCBREAKFAST 11/14/19 05:00 PRO B-TYPE NATRIUR PEPT,BNPPRO [CHEM] DAILY 11/14/19 05:11 CBC WITH AUTO DIFF [HEME] AM CMP [COMPREHENSIVE METABOLIC PN,CMP] [CHEM] AM MAGNESIUM [CHEM] AM 11/14/19 07:00 CBC W/O DIFF,HEMOGRAM [HEME] MOTH@0700 11/15/19 05:00 PRO B-TYPE NATRIUR PEPT,BNPPRO [CHEM] DAILY 11/15/19 05:11 CBC WITH AUTO DIFF [HEME] AM CMP [COMPREHENSIVE METABOLIC PN,CMP] [CHEM] AM MAGNESIUM [CHEM] AM 11/16/19 05:00 PRO B-TYPE NATRIUR PEPT,BNPPRO [CHEM] DAILY 11/16/19 05:11 CBC WITH AUTO DIFF [HEME] AM CMP [COMPREHENSIVE METABOLIC PN,CMP] [CHEM] AM MAGNESIUM [CHEM] AM 11/17/19 05:11 CBC WITH AUTO DIFF [HEME] AM CMP [COMPREHENSIVE METABOLIC PN,CMP] [CHEM] AM MAGNESIUM [CHEM] AM 11/18/19 05:11 CBC WITH AUTO DIFF [HEME] AM CMP [COMPREHENSIVE METABOLIC PN,CMP] [CHEM] AM MAGNESIUM [CHEM] AM 11/18/19 07:00 CBC W/O DIFF,HEMOGRAM [HEME] MOTH@0700 11/21/19 07:00 CBC W/O DIFF,HEMOGRAM [HEME] MOTH@00 11/25/19 07:00 CBC W/O DIFF,HEMOGRAM [HEME] MOTH@00 11/28/19 07:00 CBC W/O DIFF,HEMOGRAM [HEME] MOTH@69912/02/19 07:00 CBC W/O DIFF,HEMOGRAM [HEME] MOTH@699 - Plan Plan:: Acute: Proteinuria 2/2 CKD 3+ protein on UA Suspect due to nephrotic syndrome: Severe swelling, weight gain, and fatigue Losartan 50 mg po daily and Bumex 1 mg po Daily Carries no hx/o diabetes Urine random Total Protein: 291.6 Protein/Creatinine Ratio: 5554.3 Need to see nephrology after discharge CKD Stage 3-4 No baseline for comparison BUN 30/Cr of 2.2 ATN vs AIN Losartan now at 50 mg po daily 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 Two cysts are noted within the right kidney. Echogenic cortex of the left kidney compatible with medical renal disease Avoid nephrotoxic agents Gentle diuresis if possible Hypoalbuminemia This is chronic due to nephrotic syndrome Albumin of 2.8-->3.1-->2.7 Responding to IV Albumin Normocytic hypochromic Anemia, Stable Hgb of 11 grams -->11.8 grams-->10.5 Likely carries a hx/o anemia of chronic disease with his underlying CKD of Stage 3 Will monitor Mild Hypokalemia K of 3.3 Replete and monitor Resolved: S/p Hypomagnesemia Mg of 1.7-->1.9 Replete and monitor S/p COPD Exacerbation now at baseline Worsening SOB and Dyspnea Has inhalers at home and supplemental O2 Plan: Bronchodilators, decongestant/expectorant, sputum culture, viral panel, RT care, pulmonary toilet, and serial CXR as indicated S/p Dyspnea Angina Equivalent vs PE Has hx/o CAD S/p CABG and Pulmonary HTN Plan: Supplemental O2, Low dose IV Morphine for symptomatic control, ACS work up , and possible D-dimer level if indicated Inactive: CAD S/p CABG in 2012, Stable He takes ASA and carvedilol Plan: Resume home cardiac medications and AHA diet Pulmonary HTN Has COPD and Chronic Respiratory Failure Continue Supplemental O2 and Bronchodilators 2D echo today today Respiratory Failure, At baseline Has underlying COPD Usually on 4L NC at home Titrate to keep O2 sat > 92% 10 Lbs Weight Gain Has significant edema Happened in the course of 6 months They discontinued his diuretic Plan: to diurese him and limit salt and fluid intake Congestive Heart Failure with Reduced EF of 45-50% Has underlying cardiomyopathy ProBNP of 4015-->6594-->5530 with peripheral signs of significant edema 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 2D echo report shows EF o 45-50% with Grade 1 Diastolic Dysfunction and Moderately Dilated Left Atrium. Chronic: HTN, HLD, PVD, CAD S/p CABG in 2013, Hx/o [place], COPD, Hx/o [place], Cardiomyopathy (likely Non-ischemic), Pulmonary HTN, TAA, BPH, Anxiety, Depression and Hx/o PTSD Plan: Patient is continues to improve clinically. Continue to diuretic, salt/ fluid restriction, daily weight check, and IS/Os. IV Albumin infusion last dose tonight. PT/OT for deconditioning. RT to assess and treat respiratory status. CM /SW for d/c planning. Code status DNI.
[2019-11-13] MEDS: Tamsulosin 0.4 MG Cap.ER PO SCH (09:21)
[2019-11-13] MEDS: Famotidine 10 MG Tab PO SCH (09:22)
[2019-11-13] MEDS: Carvedilol 12.5 MG Tab PO SCH (09:22)
[2019-11-13] MEDS: Aspirin 81 MG Tab.Chew PO SCH (09:22)
[2019-11-13] MEDS: Heparin Sodium 5,000 Units/ML Vial SUBCUT SCH ×3 (09:23→22:08)
[2019-11-13] MEDS: Temazepam 30 MG Cap PO PRN (20:56)
[2019-11-13] MEDS: Potassium Chloride 20 MEQ Tab.ER PO SCH (20:56)
[2019-11-13] MEDS ORDERED: Potassium Chloride 20 MEQ Tab.ER PO SCH (21:00)
[2019-11-13] MEDS: Oxymetazoline 0.05% Nasal Spray 30 ML Bottle NAS PRN (21:13)
[2019-11-14] MEDS: Formoterol/Mometasone 200-5 MCG 8.8 GM Inhaler IH SCH ×2 (06:17→20:12)
[2019-11-14] MEDS: Glycopyrrolate 15.6 MCG Cap.W.Dev Kit of 6 IH SCH ×2 (06:17→20:12)
--- NOTE | 2019-11-14 06:53 | PCM.PN ---
- General Info Date of Service: 11/14/19 Admission Dx/Problem (Free Text): Congestive Heart Failure Subjective Update: Patient sleep well last night. He actually thank me for it. He is very happy with how his legs looks like right now. His K is slightly low at 3.3. Functional Status: Reports: Pain Controlled, Tolerating Diet, Ambulating, Urinating - Review of Systems General: Denies: Fever, Chills HEENT: Reports: No Symptoms Pulmonary: Denies: Shortness of Breath Cardiovascular: Reports: Edema. Denies: Chest Pain, Dyspnea on Exertion, Lightheadedness Gastrointestinal: Denies: Abdominal Pain Genitourinary: Denies: No Symptoms Musculoskeletal: Denies: No Symptoms Skin: Denies: No Symptoms Neurological: Denies: Trouble Speaking, Difficulty Walking, Weakness, Gait Disturbance Psychiatric: Denies: Depression, Anxiety, Agitation, Hallucinations, Suicidal Ideation, Homicidal Ideation Systems Review Comment:: No overnight or acute issues. - Patient Data Vitals - Most Recent: Last Vital Signs Temp 37.2 C 11/14/19 04:11 Pulse 81 11/14/19 04:11 Resp 20 11/14/19 04:11 BP 149/84 H 11/14/19 04:11 Pulse Ox 94 L 11/14/19 06:18 Weight - Most Recent: 72.938 kg I&O - Last 24 Hours: Intake & Output 11/13/19 11/13/19 11/14/19 14:59 22:59 06:59 Intake Total 100 497 530 Output Total 2100 1600 Balance 100 -1603 -1070 Lab Results Last 24 Hours: Laboratory Results - last 24 hr 11/13/19 11/13/19 11/13/19 Range/Units 06:30 06:30 06:30 WBC 5.71 (4.23-9.07) K/mm3 RBC 4.18 L (4.63-6.08) M/mm3 Hgb 10.5 L (13.7-17.5) gm/dl Hct 35.0 L (40.1-51.0) % MCV 83.7 (79.0-92.2) fl MCH 25.1 L (25.7-32.2) pg MCHC 30.0 L (32.2-35.5) g/dl RDW Std Deviation 58.2 H (35.1-43.9) fL Plt Count 243 (163-337) K/mm3 MPV 8.7 L (9.4-12.3) fl Neut % (Auto) 66.4 (34.0-67.9) % Lymph % (Auto) 18.4 L (21.8-53.1) % [place] % (Auto) 10.7 (5.3-12.2) % Eos % (Auto) 3.9 (0.8-7.0) Baso % (Auto) 0.4 (0.1-1.2) % Neut # (Auto) 3.80 (1.78-5.38) K/mm3 Lymph # (Auto) 1.05 L (1.32-3.57) K/mm3 [place] # (Auto) 0.61 (0.30-0.82) K/mm3 Eos # (Auto) 0.22 (0.04-0.54) K/mm3 Baso # (Auto) 0.02 (0.01-0.08) K/mm3 Sodium 145 (136-145) mEq/L Potassium 3.3 L (3.5-5.1) mEq/L Chloride 105 (98-107) mEq/L Carbon Dioxide 34 H (21-32) mEq/L Anion Gap 9.3 (5-15) BUN 27 H (7-18) mg/dL Creatinine 2.2 H (0.7-1.3) mg/dL Est Cr Clr Drug Dosing 35.20 mL/min Estimated GFR (MDRD) 30 (>60) mL/min BUN/Creatinine Ratio 12.3 L (14-18) Glucose 90 (80-115) mg/dL Calcium 8.2 L (8.5-10.1) mg/dL Magnesium 1.9 (1.8-2.4) mg/dl Total Bilirubin 0.4 (0.2-1.0) mg/dL AST 13 L (15-37) U/L ALT 19 (16-63) U/L Alkaline Phosphatase 69 (46-116) U/L NT-Pro-B Natriuret Pep 5530 H (0-125) pg/mL Total Protein 5.7 L (6.4-8.2) g/dl Albumin 2.7 L (3.4-5.0) g/dl Globulin 3.0 gm/dL Albumin/Globulin Ratio 0.9 L (1-2) 11/14/19 Range/Units 06:19 WBC 5.78 (4.23-9.07) K/mm3 RBC 4.17 L (4.63-6.08) M/mm3 Hgb 10.4 L (13.7-17.5) gm/dl Hct 35.3 L (40.1-51.0) % MCV 84.7 (79.0-92.2) fl MCH 24.9 L (25.7-32.2) pg MCHC 29.5 L (32.2-35.5) g/dl RDW Std Deviation 59.5 H (35.1-43.9) fL Plt Count 244 (163-337) K/mm3 MPV 8.9 L (9.4-12.3) fl Neut % (Auto) 68.4 H (34.0-67.9) % Lymph % (Auto) 18.0 L (21.8-53.1) % [place] % (Auto) 9.7 (5.3-12.2) % Eos % (Auto) 3.5 (0.8-7.0) Baso % (Auto) 0.2 (0.1-1.2) % Neut # (Auto) 3.96 (1.78-5.38) K/mm3 Lymph # (Auto) 1.04 L (1.32-3.57) K/mm3 [place] # (Auto) 0.56 (0.30-0.82) K/mm3 Eos # (Auto) 0.20 (0.04-0.54) K/mm3 Baso # (Auto) 0.01 (0.01-0.08) K/mm3 Sodium (136-145) mEq/L Potassium (3.5-5.1) mEq/L Chloride (98-107) mEq/L Carbon Dioxide (21-32) mEq/L Anion Gap (5-15) BUN (7-18) mg/dL Creatinine (0.7-1.3) mg/dL Est Cr Clr Drug Dosing mL/min Estimated GFR (MDRD) (>60) mL/min BUN/Creatinine Ratio (14-18) Glucose (80-115) mg/dL Calcium (8.5-10.1) mg/dL Magnesium (1.8-2.4) mg/dl Total Bilirubin (0.2-1.0) mg/dL AST (15-37) U/L ALT (16-63) U/L Alkaline Phosphatase (46-116) U/L NT-Pro-B Natriuret Pep (0-125) pg/mL Total Protein (6.4-8.2) g/dl Albumin (3.4-5.0) g/dl Globulin gm/dL Albumin/Globulin Ratio (1-2) Med Orders - Current: Current Medications Acetaminophen (Tylenol) 650 mg PO Q4H PRN PRN Reason: Pain (Mild 1-3)/fever Hydrocodone Bitart/Acetaminophen ([place] 325-5 Mg) 1 tab PO Q4H PRN PRN Reason: Pain (moderate 4-6) Albuterol (Proventil Hfa) 0 gm INH Q6H PRN PRN Reason: Dyspnea Albuterol/Ipratropium (Duoneb 3.0-0.5 Mg/3 Ml) 3 ml NEB Q4H PRN PRN Reason: Shortness Of Breath/wheezing Last Admin: 11/13/19 01:47 Dose: 3 ml Aspirin (Aspirin) 81 mg PO DAILY [facility] Last Admin: 11/13/19 09:22 Dose: 81 mg Bisacodyl (Dulcolax) 5 mg PO DAILY PRN PRN Reason: Constipation Bumetanide (Bumex) 1 mg PO DAILY [facility] Carvedilol (Coreg) 25 mg PO DAILY [facility] Last Admin: 11/13/19 09:22 Dose: 25 mg Famotidine (Pepcid) 20 mg PO DAILY [facility] Last Admin: 11/13/19 09:22 Dose: 20 mg Glycopyrrolate (Seebri Neohaler) 15.6 mcg IH BIDRT [facility] Last Admin: 11/14/19 06:17 Dose: 1 cap Guaifenesin/Phenylephrine HCl (Robitussin Dm) 10 ml PO Q4H PRN PRN Reason: Cough Heparin Sodium (Porcine) (Heparin Sodium) 5,000 units SUBCUT Q12H [facility] Last Admin: 11/13/19 22:08 Dose: Not Given Hydrocortisone (Hydrocortisone 1% Crm) 3 gm TOP ASDIRECTED PRN PRN Reason: Itching Last Admin: 11/12/19 21:30 Dose: 3 gram Hydromorphone HCl (Dilaudid) 0.25 mg IVPUSH Q2H PRN PRN Reason: Pain (severe 7-10) Promethazine HCl 6.25 mg/ (Sodium Chloride) 50.25 mls @ 100 mls/hr IV Q6H PRN PRN Reason: Nausea/Vomiting Losartan Potassium (Cozaar) 50 mg PO DAILY [facility] Magnesium Hydroxide (Milk Of Magnesia) 30 ml PO Q12H PRN PRN Reason: Constipation Mometasone Furoate/Formoterol Fumar (Dulera 200-5 Mcg) 2 puff IH BIDRT [facility] Last Admin: 11/14/19 06:17 Dose: 2 puff Ondansetron HCl (Zofran) 4 mg IV Q6H PRN PRN Reason: Nausea/Vomiting Oxymetazoline HCl (Nasal Decongestant [place]) 1 ml REFUGIO Q12HR PRN PRN Reason: Congestion Last Admin: 11/13/19 21:13 Dose: 1 spray Polyethylene Glycol (Miralax) 17 gm PO DAILY PRN PRN Reason: Constipation Potassium Chloride (Klor-Con M20) 60 meq PO BID [facility] Stop: 11/14/19 09:01 Last Admin: 11/13/19 20:56 Dose: 60 meq Senna/Docusate Sodium (Senna Plus) 1 tab PO BID PRN PRN Reason: Constipation Sodium Chloride (Saline Flush) 10 ml FLUSH ASDIRECTED PRN PRN Reason: Keep Vein Open Last Admin: 11/11/19 11:59 Dose: 10 ml Tamsulosin HCl (Flomax) 0.4 mg PO PCBREAKFAST [facility] Last Admin: 11/13/19 09:21 Dose: 0.4 mg Temazepam (Restoril) 30 mg PO BEDTIME PRN PRN Reason: Insomnia Last Admin: 11/13/19 20:56 Dose: 30 mg Discontinued Medications Albuterol/Ipratropium (Duoneb 3.0-0.5 Mg/3 Ml) 3 ml NEB ONETIME ONE Stop: 11/11/19 12:09 Last Admin: 11/11/19 12:14 Dose: 3 ml Bumetanide (Bumex) 1 mg PO BIDDIURETIC [facility] Last Admin: 11/13/19 14:07 Dose: 1 mg Diphenhydramine HCl (Benadryl) 25 mg IVPUSH ONETIME ONE Stop: 11/13/19 00:13 Last Admin: 11/13/19 00:24 Dose: 25 mg Diphenhydramine HCl (Benadryl) 25 mg IVPUSH ONETIME ONE Stop: 11/13/19 21:01 Last Admin: 11/14/19 01:20 Dose: Not Given Famotidine (Pepcid) 20 mg PO BID [facility] Furosemide (Lasix) 40 mg IVPUSH NOW ONE Stop: 11/11/19 12:05 Last Admin: 11/11/19 12:26 Dose: 40 mg Hydrocortisone (Hydrocortisone 1% Crm) 30 gm TOP ASDIRECTED PRN PRN Reason: Itching Albumin Human (Flexbumin 25%) 12.5 gm in 50 mls @ 100 mls/hr IV ONETIME ONE Stop: 11/11/19 20:30 Last Admin: 11/11/19 21:35 Dose: 100 mls/hr Magnesium Sulfate 2 gm/ Premix 50 mls @ 25 mls/hr IV ONETIME ONE Stop: 11/12/19 11:36 Last Admin: 11/12/19 09:53 Dose: 25 mls/hr Albumin Human (Flexbumin 25%) 12.5 gm in 50 mls @ 100 mls/hr IV ONETIME ONE Stop: 11/12/19 15:20 Last Admin: 11/12/19 16:34 Dose: 100 mls/hr Albumin Human (Flexbumin 25%) 12.5 gm in 50 mls @ 100 mls/hr IV ONETIME ONE Stop: 11/12/19 21:29 Last Admin: 11/12/19 21:27 Dose: 100 mls/hr Albumin Human (Flexbumin 25%) 12.5 gm in 50 mls @ 100 mls/hr IV ONETIME ONE Stop: 11/13/19 08:29 Last Admin: 11/13/19 07:52 Dose: 100 mls/hr Albumin Human (Flexbumin 25%) 12.5 gm in 50 mls @ 100 mls/hr IV ONETIME ONE Stop: 11/13/19 18:29 Last Admin: 11/13/19 18:41 Dose: 100 mls/hr Lorazepam (Ativan) 1 mg IVPUSH ONETIME ONE Stop: 11/12/19 21:01 Last Admin: 11/12/19 21:21 Dose: 1 mg Lorazepam (Ativan) 1 mg IVPUSH BEDTIME ONE Stop: 11/13/19 00:12 Last Admin: 11/13/19 00:26 Dose: 1 mg Mometasone Furoate/Formoterol Fumar (Dulera 200-5 Mcg) 2 puff IH BID [facility] Non-Formulary Medication (Cannabidiol (Cbd) Extract [Cbd Oil]) 1 drop PO BEDTIME [facility] Last Admin: 11/12/19 07:34 Dose: Not Given Nortriptyline HCl (Nortriptyline) 50 mg PO BEDTIME [facility] Last Admin: 11/12/19 21:19 Dose: Not Given Potassium Chloride (Klor-Con M20) 80 meq PO BID [facility] Stop: 11/14/19 09:01 Quetiapine Fumarate (Seroquel) 50 mg PO ONETIME ONE Stop: 11/12/19 20:48 Last Admin: 11/12/19 21:19 Dose: 50 mg Tamsulosin HCl (Flomax) 0.4 mg PO ONETIME ONE Stop: 11/12/19 10:25 Last Admin: 11/12/19 13:30 Dose: Not Given Tamsulosin HCl (Flomax) 0.4 mg PO ONETIME ONE Stop: 11/12/19 13:01 Last Admin: 11/12/19 13:31 Dose: 0.4 mg Temazepam (Restoril) 7.5 mg PO BEDTIME PRN PRN Reason: Sleep Temazepam (Restoril) 15 mg PO BEDTIME PRN PRN Reason: Sleep - Exam Quality Assessment: Supplemental Oxygen General: Alert, Oriented, Cooperative, No Acute Distress HEENT: Pupils Equal, Pupils Reactive, EOMI, Mucous Membr. Moist/[place] Neck: Supple Lungs: Clear to Auscultation, Normal Respiratory Effort Cardiovascular: Regular Rate, Regular Rhythm GI/Abdominal Exam: Normal Bowel Sounds, Soft, Non-Tender, No Organomegaly, No Distention, No Abnormal Bruit (Male) Exam: Deferred Back Exam: Normal Inspection, Full Range of Motion Extremities: Normal Inspection, Normal Range of Motion, Normal Capillary Refill , Pedal Edema, Other (significantly improved peripheral edema). No: Joint Swelling Peripheral Pulses: 1+: Dorsalis Pedis (L), Dorsalis Pedis (R) Skin: Warm, Dry, Intact Neurological: No New Focal Deficit, Normal Gait Psy/Mental Status: Alert, Normal Affect, Normal Mood Sepsis Event Note - Evaluation Sepsis Screening Result: No Definite Risk - Focused Exam Vital Signs: Vital Signs Temp Pulse Resp BP Pulse Ox Pulse Ox 11/14/19 06:18 94 L 11/14/19 04:11 37.2 C 81 20 149/84 H 94 L 11/13/19 20:55 37.7 C 95 22 H 149/77 H 92 L 11/13/19 20:00 92 L Date Exam was Performed: 11/14/19 Time Exam was Performed: 18:42 - Problem List Review Problem List Initiated/Reviewed/Updated: Yes - My Orders Last 24 Hours: My Active Orders 11/13/19 10:00 Tamsulosin [Flomax] 0.4 mg PO PCBREAKFAST 11/13/19 17:56 Temazepam [Restoril] 30 mg PO BEDTIME PRN 11/13/19 19:36 Oxymetazoline [Nasal Decongestant [place]] 1 ml REFUGIO Q12HR PRN 11/13/19 21:00 Potassium Chloride [Klor-Con M20] 60 meq PO BID 11/14/19 05:25 CULTURE SPUTUM + SMEAR [RM] Routine 11/14/19 06:19 CBC WITH AUTO DIFF [HEME] AM CMP [COMPREHENSIVE METABOLIC PN,CMP] [CHEM] AM MAGNESIUM [CHEM] AM PRO B-TYPE NATRIUR PEPT,BNPPRO [CHEM] DAILY 11/14/19 09:00 Bumetanide [Bumex] 1 mg PO DAILY Losartan [Cozaar] 50 mg PO DAILY 11/15/19 05:00 PRO B-TYPE NATRIUR PEPT,BNPPRO [CHEM] DAILY 11/15/19 05:11 CBC WITH AUTO DIFF [HEME] AM CMP [COMPREHENSIVE METABOLIC PN,CMP] [CHEM] AM MAGNESIUM [CHEM] AM 11/16/19 05:00 PRO B-TYPE NATRIUR PEPT,BNPPRO [CHEM] DAILY 11/16/19 05:11 CBC WITH AUTO DIFF [HEME] AM CMP [COMPREHENSIVE METABOLIC PN,CMP] [CHEM] AM MAGNESIUM [CHEM] AM 11/17/19 05:11 CBC WITH AUTO DIFF [HEME] AM CMP [COMPREHENSIVE METABOLIC PN,CMP] [CHEM] AM MAGNESIUM [CHEM] AM 11/18/19 05:11 CBC WITH AUTO DIFF [HEME] AM CMP [COMPREHENSIVE METABOLIC PN,CMP] [CHEM] AM MAGNESIUM [CHEM] AM 11/18/19 07:00 CBC W/O DIFF,HEMOGRAM [HEME] MOTH@69911/21/19 07:00 CBC W/O DIFF,HEMOGRAM [HEME] MOTH@69911/25/19 07:00 CBC W/O DIFF,HEMOGRAM [HEME] MOTH@69911/28/19 07:00 CBC W/O DIFF,HEMOGRAM [HEME] MOTH@69912/02/19 07:00 CBC W/O DIFF,HEMOGRAM [HEME] MOTH@699 - Plan Plan:: Acute: Proteinuria 2/2 CKD 3+ protein on UA Suspect due to nephrotic syndrome: Severe swelling, weight gain, and fatigue Continue Losartan 50 mg po daily and Bumex 1 mg po Daily plus Amlodipine po daily Carries no hx/o diabetes Urine random Total Protein: 291.6 Protein/Creatinine Ratio: 5554.3 Need to see nephrology after discharge Hypoalbuminemia This is chronic due to nephrotic syndrome Albumin of 2.8, now at baseline Responded to IV Albumin Normocytic hypochromic Anemia, Stable Hgb of 11 grams -->11.8 grams-->10.5-->10.4 grams Likely carries a hx/o anemia of chronic disease with his underlying CKD of Stage 3 Will monitor Resolved: S/p Hypomagnesemia Mg of 1.7-->1.9 Replete and monitor S/p COPD Exacerbation now at baseline Worsening SOB and Dyspnea Has inhalers at home and supplemental O2 Plan: Bronchodilators, decongestant/expectorant, sputum culture, viral panel, RT care, pulmonary toilet, and serial CXR as indicated S/p Dyspnea Angina Equivalent vs PE Has hx/o CAD S/p CABG and Pulmonary HTN Plan: Supplemental O2, Low dose IV Morphine for symptomatic control, ACS work up , and possible D-dimer level if indicated Inactive: CAD S/p CABG in 2012, Stable He takes ASA and carvedilol Plan: Resume home cardiac medications and AHA diet Pulmonary HTN Has COPD and Chronic Respiratory Failure Continue Supplemental O2 and Bronchodilators 2D echo today today Respiratory Failure, At baseline Has underlying COPD Usually on 4L NC at home Titrate to keep O2 sat > 92% 10 Lbs Weight Gain Has significant edema Happened in the course of 6 months They discontinued his diuretic Plan: to diurese him and limit salt and fluid intake S/p Mild Hypokalemia K of 3.3-->4.1 Replete and monitor Inactive: Congestive Heart Failure with Reduced EF of 45-50% Has underlying cardiomyopathy ProBNP of 4015-->6594-->5530-->4492 with peripheral signs of significant edema 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 2D echo report shows EF o 45-50% with Grade 1 Diastolic Dysfunction and Moderately Dilated Left Atrium. 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 Two cysts are noted within the right kidney. Echogenic cortex of the left kidney compatible with medical renal disease Avoid nephrotoxic agents Gentle diuresis if possible Chronic: HTN, HLD, PVD, CAD S/p CABG in 2012, Hx/o VT, COPD, Hx/o VT, Cardiomyopathy (likely Non-ischemic), Pulmonary HTN, TAA, BPH, Anxiety, Depression and Hx/o PTSD Plan: Patient has improved significantly. He is mainly here due to nephrotic syndrome and not acute heart failure. He will be discharged in AM.
[2019-11-14] MEDS: Losartan 25 MG Tab PO SCH (09:36)
[2019-11-14] MEDS: Potassium Chloride 20 MEQ Tab.ER PO SCH (09:37)
[2019-11-14] MEDS: Famotidine 10 MG Tab PO SCH (09:37)
[2019-11-14] MEDS: Carvedilol 12.5 MG Tab PO SCH (09:38)
[2019-11-14] MEDS: Tamsulosin 0.4 MG Cap.ER PO SCH (09:38)
[2019-11-14] MEDS: Bumetanide 1 MG Tab PO SCH (09:38)
[2019-11-14] MEDS: Heparin Sodium 5,000 Units/ML Vial SUBCUT SCH ×2 (09:39→23:28)
[2019-11-14] MEDS: Aspirin 81 MG Tab.Chew PO SCH (09:39)
[2019-11-14] MEDS: Oxymetazoline 0.05% Nasal Spray 30 ML Bottle NAS PRN (16:40)
[2019-11-14] MEDS: Temazepam 30 MG Cap PO PRN (20:24)
[2019-11-14] MEDS ORDERED: amLODIPine 10 MG Tab PO SCH (21:00)
[2019-11-15] MEDS: Formoterol/Mometasone 200-5 MCG 8.8 GM Inhaler IH SCH (06:05)
[2019-11-15] MEDS: Glycopyrrolate 15.6 MCG Cap.W.Dev Kit of 6 IH SCH (06:06)
--- NOTE | 2019-11-15 07:45 | PCM.DCSUM1 ---
Discharge Summary - Hospital Course HPI Initial Comments: This is a 69 yo elderly white male with past medical hx/o HTN, HLD, PVD, CAD S/ p CABG in 2012, Cardiomyopathy, HF of Unknown EF, COPD, Respiratory Failure on 4L NC chronically, Hx/o GA, Hx/o GA, Pulmonary HTN, TAA, BPH, Anxiety, Depression and Hx/o PTSD who presents to ED with complaints of increasing dyspnea on minimal exertion associated with Orthopnea and PND over the course of a week. He carries a hx/o cardiomyopathy and HF with unknown EF. He states his legs are grossly swollen and had 10lbs weight gain over the course of several days. He takes diuretic but makes him voided a lot at night. He is O2 dependent on 4L NC all the time for SANTANA and COPD. He states he gets short of breath even going to the bathroom. He denies any signs or symptoms of systemic infection. His initial work up in ED shows a CBC remarkable for RBC of 4.42, Hgb of 11.2, Hct of 37.1, MCH of 25.3, MCHC of 30.2, RDW of 58.1, MPV of 8.9, Neutrophils of 74.2%, Lymphocytes of 15.4%, Neutrophil # of 5.44, Lymphocyte # of 1.13. His coagulation studies are significant for aPTT of 32. His Chemistry is remarkable for BUN of 30, Cr of 2.2, ProBNP of 4015, and Albumin of 2.8. His UA is not suggestive of UTI but noted for 3+ proteinuria. Patient received initial treatment in ED before he was sent to us for further management. Diagnosis: Stroke: No Modified [place] Scale: No Symptoms at All Modified [place] Scale Score: 0 - Discharge Data Discharge Date: 11/15/19 Discharge Disposition: Home, Self-Care 01 Condition: Good - Referral to Home Health Primary Care Physician: Mae Don MD - Patient Summary/Data Operative Procedure(s) Performed: None Complications: None Consults: Consultations 11/11/19 19:54 Consult to Case Management/Tactical Air Defense Controller [CONS] Routine Consult to Legend Maker [CONS] Routine Consult to Spiritual Care [CONS] Routine OT Evaluation and Treatment [CONS] Routine PT Evaluation and Treatment [CONS] Routine Respiratory Care Assess and Treatment [CONS] Routine Labs Pending at D/C: None Recommended Follow-up Testing/Procedures: Nephrology after discharge Hospital Course: Patient was primarily admitted for what initially felt to be congestive heart failure but actually nephrotic syndrome due to his underlying chronic kidney disease stage 3-4. He responded slowly with infusion of albumin and gentle diuresis. His hospitals course was uncomplicated and the rest of his chronic medical illness remained stable during this hospitalization. Once medically stable, he was then discharged home. He was provided with diuretic for management of chronic peripheral edema as well as salt and fluid daily restrictions. He was advised to comply with discharge instructions and most importantly, to keep outpatient appointment with nephrology and primary care provider as scheduled. The patient expressed understanding and in agreement with the plans as discussed above. All questions and concerns answered. - Patient Instructions Diet: Heart Healthy Diet, Usual Diet as Tolerated, Low Sodium Fluid Restriction: 2000 mL Activity: As Tolerated Driving: Do Not Drive Showering/Bathing: May Shower Notify Provider of: Fever, Increased Pain, Swelling and Redness, Nausea and/or Vomiting Other/Special Instructions: - Please take all new medications as directed. - Resume all home medications and routine home activities as tolerated. - Recommend you follow daily salt anf fluid restrictions. - Check vitals and follow parameters before taking BP medications. - Take additional bumex for increased peripheral edema as needed then call your family doctor for further advice. - Call or follow up with your PCP for any questions or concerns after discharge. - Follow up with your PCP in 1 week with repeat labs. - Come back or seek immediate care should your symptoms persist or get worse - Discharge Plan *PRESCRIPTION DRUG MONITORING PROGRAM REVIEWED*: Not Applicable *COPY OF PRESCRIPTION DRUG MONITORING REPORT IN PATIENT MERY: Not Applicable Prescriptions/Med Rec: amLODIPine [Norvasc] 5 mg PO DAILY #30 tablet Furosemide [Lasix] 20 mg PO ASDIRECTED #30 tab Potassium Chloride 20 meq PO ASDIRECTED #30 tablet.er Home Medications: Home Meds Albuterol Sulfate [Proair Respiclick] 2 puff INH Q6H PRN 11/11/19 [History] Aspirin 81 mg PO DAILY 11/11/19 [History] Budesonide/Formoterol [Symbicort 160-4.5 MCG] 2 puff INH BID 11/11/19 [History] Cannabidiol (Cbd) Extract [CBD Oil] 1 drop PO BEDTIME 11/11/19 [History] Nortriptyline HCl [Pamelor] 50 mg PO DAILY 11/11/19 [History] Tiotropium [Spiriva HandiHaler] 18 mcg INH DAILY 11/11/19 [History] Furosemide [Lasix] 20 mg PO ASDIRECTED #30 tab 11/15/19 [Rx] Losartan [Cozaar] 50 mg PO DAILY #30 11/15/19 [Rx] Potassium Chloride 20 meq PO ASDIRECTED #30 tablet.er 11/15/19 [Rx] amLODIPine [Norvasc] 5 mg PO DAILY #30 tablet 11/15/19 [Rx] carvediloL [Carvedilol] 25 mg PO DAILY #0 11/15/19 [Rx] Oxygen Therapy Mode: Nasal Cannula Oxygen Flow Rate (L/min): 4 (chronically) Patient Handouts: Nephrotic Syndrome, Chronic Obstructive Pulmonary Disease, [id number], Home Oxygen Use, Adult Referrals: Mae Don MD [Primary Care Provider] - (Dr. Don's office will contact you to schedule an appointment.) - Discharge Summary/Plan Comment DC Time >30 min.: Yes (35 mins) Discharge Summary/Plan Comment: Discharge to Home - General Info Date of Service: 11/15/19 Admission Dx/Problem (Free Text: Congestive Heart Failure Subjective Update: Patient sleep well last night. He actually thank me for it. He is very happy with how his legs looks like right now. His K is slightly low at 3.3. Functional Status: Reports: Pain Controlled, Tolerating Diet, Ambulating, Urinating - Review of Systems General: Denies: Fever, Weakness, Fatigue, Malaise, Chills HEENT: Reports: No Symptoms Pulmonary: Denies: Shortness of Breath, Pleuritic Chest Pain, Cough, Wheezing Cardiovascular: Denies: Chest Pain, Dyspnea on Exertion, Lightheadedness Gastrointestinal: Denies: Abdominal Pain, Nausea, Vomiting Genitourinary: Reports: No Symptoms Musculoskeletal: Reports: No Symptoms Skin: Reports: No Symptoms Neurological: Denies: Confusion, Numbness, Syncope, Tingling, Gait Disturbance Psychiatric: Denies: Depression, Anxiety, Agitation, Hallucinations Systems Review Comment: No overnight or acute issues. He is doing relatively well and feeling great. - Patient Data Vitals - Most Recent: Last Vital Signs Temp 36.6 C 11/15/19 04:11 Pulse 85 11/15/19 04:11 Resp 20 11/15/19 04:11 BP 141/103 H 11/15/19 04:11 Pulse Ox 93 L 11/15/19 06:18 Weight - Most Recent: 72.802 kg I&O - Last 24 hours: Intake & Output 11/14/19 11/15/19 11/15/19 22:59 06:59 14:59 Intake Total 1120 Output Total 1075 2500 Balance 45 -2500 Lab Results - Last 24 hrs: Laboratory Results - last 24 hr 11/15/19 11/15/19 Range/Units 05:55 05:55 WBC 6.45 (4.23-9.07) K/mm3 RBC 4.27 L (4.63-6.08) M/mm3 Hgb 10.7 L (13.7-17.5) gm/dl Hct 36.1 L (40.1-51.0) % MCV 84.5 (79.0-92.2) fl MCH 25.1 L (25.7-32.2) pg MCHC 29.6 L (32.2-35.5) g/dl RDW Std Deviation 59.2 H (35.1-43.9) fL Plt Count 255 (163-337) K/mm3 MPV 9.1 L (9.4-12.3) fl Neut % (Auto) 68.9 H (34.0-67.9) % Lymph % (Auto) 17.4 L (21.8-53.1) % [place] % (Auto) 9.9 (5.3-12.2) % Eos % (Auto) 3.4 (0.8-7.0) Baso % (Auto) 0.2 (0.1-1.2) % Neut # (Auto) 4.45 (1.78-5.38) K/mm3 Lymph # (Auto) 1.12 L (1.32-3.57) K/mm3 [place] # (Auto) 0.64 (0.30-0.82) K/mm3 Eos # (Auto) 0.22 (0.04-0.54) K/mm3 Baso # (Auto) 0.01 (0.01-0.08) K/mm3 Sodium 141 (136-145) mEq/L Potassium 4.5 (3.5-5.1) mEq/L Chloride 102 (98-107) mEq/L Carbon Dioxide 32 (21-32) mEq/L Anion Gap 11.5 (5-15) BUN 32 H (7-18) mg/dL Creatinine 2.4 H (0.7-1.3) mg/dL Est Cr Clr Drug Dosing 30.76 mL/min Estimated GFR (MDRD) 27 (>60) mL/min BUN/Creatinine Ratio 13.3 L (14-18) Glucose 94 (80-115) mg/dL Calcium 8.5 (8.5-10.1) mg/dL Magnesium 1.8 (1.8-2.4) mg/dl Total Bilirubin 0.4 (0.2-1.0) mg/dL AST 17 (15-37) U/L ALT 21 (16-63) U/L Alkaline Phosphatase 71 (46-116) U/L Total Protein 5.9 L (6.4-8.2) g/dl Albumin 2.8 L (3.4-5.0) g/dl Globulin 3.1 gm/dL Albumin/Globulin Ratio 0.9 L (1-2) JUSTIN Results - Last 24 hrs: Microbiology 11/14/19 05:25 Gram Stain - Final Sputum - Expectorated Sputum Culture - Final Med Orders - Current: Current Medications Acetaminophen (Tylenol) 650 mg PO Q4H PRN PRN Reason: Pain (Mild 1-3)/fever Hydrocodone Bitart/Acetaminophen ([place] 325-5 Mg) 1 tab PO Q4H PRN PRN Reason: Pain (moderate 4-6) Albuterol (Proventil Hfa) 0 gm INH Q6H PRN PRN Reason: Dyspnea Albuterol/Ipratropium (Duoneb 3.0-0.5 Mg/3 Ml) 3 ml NEB Q4H PRN PRN Reason: Shortness Of Breath/wheezing Last Admin: 11/13/19 01:47 Dose: 3 ml Amlodipine Besylate (Norvasc) 10 mg PO BEDTIME [facility] Last Admin: 11/14/19 20:24 Dose: 10 mg Amlodipine Besylate (Norvasc) 5 mg PO DAILY [facility] Aspirin (Aspirin) 81 mg PO DAILY [facility] Last Admin: 11/14/19 09:39 Dose: 81 mg Bisacodyl (Dulcolax) 5 mg PO DAILY PRN PRN Reason: Constipation Bumetanide (Bumex) 1 mg PO DAILY [facility] Last Admin: 11/14/19 09:38 Dose: 1 mg Carvedilol (Coreg) 25 mg PO DAILY [facility] Last Admin: 11/14/19 09:38 Dose: 25 mg Famotidine (Pepcid) 20 mg PO DAILY [facility] Last Admin: 11/14/19 09:37 Dose: 20 mg Glycopyrrolate (Seebri Neohaler) 15.6 mcg IH BIDRT [facility] Last Admin: 11/15/19 06:06 Dose: 1 cap Guaifenesin/Phenylephrine HCl (Robitussin Dm) 10 ml PO Q4H PRN PRN Reason: Cough Heparin Sodium (Porcine) (Heparin Sodium) 5,000 units SUBCUT Q12H [facility] Last Admin: 11/14/19 23:28 Dose: 5,000 units Hydrocortisone (Hydrocortisone 1% Crm) 3 gm TOP ASDIRECTED PRN PRN Reason: Itching Last Admin: 11/12/19 21:30 Dose: 3 gram Hydromorphone HCl (Dilaudid) 0.25 mg IVPUSH Q2H PRN PRN Reason: Pain (severe 7-10) Promethazine HCl 6.25 mg/ (Sodium Chloride) 50.25 mls @ 100 mls/hr IV Q6H PRN PRN Reason: Nausea/Vomiting Losartan Potassium (Cozaar) 50 mg PO DAILY [facility] Last Admin: 11/14/19 09:36 Dose: 50 mg Magnesium Hydroxide (Milk Of Magnesia) 30 ml PO Q12H PRN PRN Reason: Constipation Mometasone Furoate/Formoterol Fumar (Dulera 200-5 Mcg) 2 puff IH BIDRT [facility] Last Admin: 11/15/19 06:05 Dose: 2 puff Ondansetron HCl (Zofran) 4 mg IV Q6H PRN PRN Reason: Nausea/Vomiting Oxymetazoline HCl (Nasal Decongestant [place]) 1 ml REFUGIO Q12HR PRN PRN Reason: Congestion Last Admin: 11/14/19 16:40 Dose: 1 spray Polyethylene Glycol (Miralax) 17 gm PO DAILY PRN PRN Reason: Constipation Senna/Docusate Sodium (Senna Plus) 1 tab PO BID PRN PRN Reason: Constipation Sodium Chloride (Saline Flush) 10 ml FLUSH ASDIRECTED PRN PRN Reason: Keep Vein Open Last Admin: 11/11/19 11:59 Dose: 10 ml Tamsulosin HCl (Flomax) 0.4 mg PO PCBREAKFAST BOBBI Last Admin: 11/14/19 09:38 Dose: 0.4 mg Temazepam (Restoril) 30 mg PO BEDTIME PRN PRN Reason: Insomnia Last Admin: 11/14/19 20:24 Dose: 30 mg Discontinued Medications Albuterol/Ipratropium (Duoneb 3.0-0.5 Mg/3 Ml) 3 ml NEB ONETIME ONE Stop: 11/11/19 12:09 Last Admin: 11/11/19 12:14 Dose: 3 ml Bumetanide (Bumex) 1 mg PO BIDDIURETIC BOBBI Last Admin: 11/13/19 14:07 Dose: 1 mg Diphenhydramine HCl (Benadryl) 25 mg IVPUSH ONETIME ONE Stop: 11/13/19 00:13 Last Admin: 11/13/19 00:24 Dose: 25 mg Diphenhydramine HCl (Benadryl) 25 mg IVPUSH ONETIME ONE Stop: 11/13/19 21:01 Last Admin: 11/14/19 01:20 Dose: Not Given Famotidine (Pepcid) 20 mg PO BID [facility] Furosemide (Lasix) 40 mg IVPUSH NOW ONE Stop: 11/11/19 12:05 Last Admin: 11/11/19 12:26 Dose: 40 mg Hydrocortisone (Hydrocortisone 1% Crm) 30 gm TOP ASDIRECTED PRN PRN Reason: Itching Albumin Human (Flexbumin 25%) 12.5 gm in 50 mls @ 100 mls/hr IV ONETIME ONE Stop: 11/11/19 20:30 Last Admin: 11/11/19 21:35 Dose: 100 mls/hr Magnesium Sulfate 2 gm/ Premix 50 mls @ 25 mls/hr IV ONETIME ONE Stop: 11/12/19 11:36 Last Admin: 11/12/19 09:53 Dose: 25 mls/hr Albumin Human (Flexbumin 25%) 12.5 gm in 50 mls @ 100 mls/hr IV ONETIME ONE Stop: 11/12/19 15:20 Last Admin: 11/12/19 16:34 Dose: 100 mls/hr Albumin Human (Flexbumin 25%) 12.5 gm in 50 mls @ 100 mls/hr IV ONETIME ONE Stop: 11/12/19 21:29 Last Admin: 11/12/19 21:27 Dose: 100 mls/hr Albumin Human (Flexbumin 25%) 12.5 gm in 50 mls @ 100 mls/hr IV ONETIME ONE Stop: 11/13/19 08:29 Last Admin: 11/13/19 07:52 Dose: 100 mls/hr Albumin Human (Flexbumin 25%) 12.5 gm in 50 mls @ 100 mls/hr IV ONETIME ONE Stop: 11/13/19 18:29 Last Admin: 11/13/19 18:41 Dose: 100 mls/hr Lorazepam (Ativan) 1 mg IVPUSH ONETIME ONE Stop: 11/12/19 21:01 Last Admin: 11/12/19 21:21 Dose: 1 mg Lorazepam (Ativan) 1 mg IVPUSH BEDTIME ONE Stop: 11/13/19 00:12 Last Admin: 11/13/19 00:26 Dose: 1 mg Mometasone Furoate/Formoterol Fumar (Dulera 200-5 Mcg) 2 puff IH BID [facility] Non-Formulary Medication (Cannabidiol (Cbd) Extract [Cbd Oil]) 1 drop PO BEDTIME [facility] Last Admin: 11/12/19 07:34 Dose: Not Given Nortriptyline HCl (Nortriptyline) 50 mg PO BEDTIME [facility] Last Admin: 11/12/19 21:19 Dose: Not Given Potassium Chloride (Klor-Con M20) 80 meq PO BID [facility] Stop: 11/14/19 09:01 Potassium Chloride (Klor-Con M20) 60 meq PO BID [facility] Stop: 11/14/19 09:01 Last Admin: 11/14/19 09:37 Dose: 60 meq Quetiapine Fumarate (Seroquel) 50 mg PO ONETIME ONE Stop: 11/12/19 20:48 Last Admin: 11/12/19 21:19 Dose: 50 mg Tamsulosin HCl (Flomax) 0.4 mg PO ONETIME ONE Stop: 11/12/19 10:25 Last Admin: 11/12/19 13:30 Dose: Not Given Tamsulosin HCl (Flomax) 0.4 mg PO ONETIME ONE Stop: 11/12/19 13:01 Last Admin: 11/12/19 13:31 Dose: 0.4 mg Temazepam (Restoril) 7.5 mg PO BEDTIME PRN PRN Reason: Sleep Temazepam (Restoril) 15 mg PO BEDTIME PRN PRN Reason: Sleep - Exam General: Reports: Alert, Oriented, Cooperative, No Acute Distress HEENT: Reports: Pupils Equal, Pupils Reactive, EOMI, Mucous Membr. Moist/Man Neck: Reports: Supple Lungs: Reports: Clear to Auscultation, Normal Respiratory Effort Cardiovascular: Reports: Regular Rate, Regular Rhythm GI/Abdominal Exam: Normal Bowel Sounds, Soft, Non-Tender, No Organomegaly, No Distention, No Abnormal Bruit, No Mass Rectal (Males) Exam: Deferred Back Exam: Reports: Normal Inspection, Decreased Range of Motion Extremities: Normal Inspection, Normal Range of Motion, Non-Tender, No Pedal Edema, Normal Capillary Refill Skin: Reports: Warm, Dry, Intact Neurological: Reports: No New Focal Deficit Psy/Mental Status: Reports: Alert, Normal Affect, Normal Mood
[2019-11-15] MEDS ORDERED: amLODIPine 5 MG Tab PO SCH (09:00)
[2019-11-15] MEDS: Losartan 25 MG Tab PO SCH (09:20)
[2019-11-15] MEDS: Bumetanide 1 MG Tab PO SCH (09:21)
[2019-11-15] MEDS: Famotidine 10 MG Tab PO SCH (09:21)
[2019-11-15] MEDS: Carvedilol 12.5 MG Tab PO SCH (09:22)
[2019-11-15] MEDS: Tamsulosin 0.4 MG Cap.ER PO SCH (09:23)
[2019-11-15] MEDS: Aspirin 81 MG Tab.Chew PO SCH (09:23)
[2019-11-15] MEDS: Heparin Sodium 5,000 Units/ML Vial SUBCUT SCH (09:24)
== END 2019-11-15 10:30 | disposition home or self-care (01) | DRG 291 ==
LOC: JD.ED 11:34 → JD.MS 17:11
PROVIDERS: ADMIT Internal Medicine; ATTEND Internal Medicine
DX: I11.0 Hypertensive heart disease with heart failure (principal); I13.0 Hypertensive heart and chronic kidney disease with heart failure and stage 1 through stage 4 chronic kidney disease, or unspecified chronic kidney disease; J44.9 Chronic obstructive pulmonary disease, unspecified; I50.43 Acute on chronic combined systolic (congestive) and diastolic (congestive) heart failure; J44.1 Chronic obstructive pulmonary disease with (acute) exacerbation; R18.8 Other ascites; N40.1 Benign prostatic hyperplasia with lower urinary tract symptoms; R35.1 Nocturia; J96.10 Chronic respiratory failure, unspecified whether with hypoxia or hypercapnia; D64.9 Anemia, unspecified; E78.5 Hyperlipidemia, unspecified; F43.10 Post-traumatic stress disorder, unspecified; I25.10 Atherosclerotic heart disease of native coronary artery without angina pectoris; I73.9 Peripheral vascular disease, unspecified; Z66 Do not resuscitate; N18.3 Chronic kidney disease, stage 3 (moderate); N40.0 Benign prostatic hyperplasia without lower urinary tract symptoms; F41.9 Anxiety disorder, unspecified; F32.9 Major depressive disorder, single episode, unspecified; Z99.81 Dependence on supplemental oxygen; Z79.51 Long term (current) use of inhaled steroids; Z79.82 Long term (current) use of aspirin; Z79.899 Other long term (current) drug therapy; Z87.891 Personal history of nicotine dependence; Z95.1 Presence of aortocoronary bypass graft; I25.2 Old myocardial infarction; E83.42 Hypomagnesemia; R63.5 Abnormal weight gain; E87.6 Hypokalemia; Z68.21 Body mass index [BMI] 21.0-21.9, adult; I27.20 Pulmonary hypertension, unspecified; D63.1 Anemia in chronic kidney disease; I42.8 Other cardiomyopathies; E88.09 Other disorders of plasma-protein metabolism, not elsewhere classified; I71.2 Thoracic aortic aneurysm, without rupture
CPT/HCPCS: 36415; 71045; 80053; 81001; 82553; 82570 ×2; 83735; 83880; 83935; 84156; 84300; 84484; 84540; 85025; 85610; 85730; 85999; 86140; 93005; 94640; 96374; 99285; J1940; 76770; 76770-26; 80048; 82040; 87205; 87486; 87581; 87632; 87798; 93010; 93306; 94760; 94761; 97162-GP; 97165-GO; 97530-GP; 97535-GO; 97535-GP; 99222; 99231; 99232; 99239; A9270-GY; J1200; J1644; J2060; J3475; J7620-GY; P9047

== ENCOUNTER 2021-04-08 05:06 | Inpatient (IN) | payer OTHER, MEDICARE ==
[2021-04-08] MEDS ORDERED: Sodium Chloride 0.9% 10 ML Syringe FLUSH PRN (05:18)
[2021-04-08] MEDS ORDERED: LORazepam 2 MG/ML SDV IVPUSH ONE (05:19)
[2021-04-08] MEDS ORDERED: Metoclopramide 10 MG/2 ML SDV IVPUSH ONE (05:20)
[2021-04-08] MEDS ORDERED: HYDROmorphone 0.5 MG/0.5 ML Syringe IVPUSH ONE (05:20)
--- NOTE | 2021-04-08 05:21 | EDM.PDOC ---
ED HPI GENERAL MEDICAL PROBLEM - General Chief Complaint: Respiratory Problem Stated Complaint: [facility] Time Seen by Provider: 04/08/21 05:06 Source of Information: Reports: Patient, EMS, [facility] Records History Limitations: Reports: No Limitations - History of Present Illness INITIAL COMMENTS - FREE TEXT/NARRATIVE: 70-year-old male brought to the ED per [facility] from [facility] where he is a resident since 28 February. Patient is very unhappy to be in the half-way and is still angry and frustrated about his current life situation. Patient has lost a great deal of weight since I have seen him . Checking her records this was in November 2019.. Is unclear if he has an underlying malignancy. Tonight he is complaining of being very short of breath. Coughing and feels like his lungs are full of fluid. He has chronic low back pain which she rates as a 5 out of 10 at all times and at times will go up to as high as a 9 out of 10. He appears miserable. He is afebrile. Heart rate was sinus tachycardia when the paramedics picked him up in the 110 range. He is on chronic oxygen by nasal cannula at all times I believe at 4 L/min . Onset: Other (Chronic medical condition.) Duration: Chronic, Getting Worse Location: Reports: Chest (Short of breath and dyspnea. Gives him a sense of suffocation.), Back (Chronic low back pain which she rates as 5 out of 10 at all times and 9 out of 10 at other times.) Quality: Reports: Ache, Throbbing Severity: Severe Improves with: Reports: None Worsens with: Reports: Movement (Becomes very short of breath just on trying to get to the bathroom.) Context: Denies: Activity, Exercise, Lifting, Sick Contact, Trauma, Other Associated Symptoms: Reports: Chest Pain, Cough, cough w sputum, Loss of Appetite, Malaise, Shortness of Breath (Chronically due to end-stage COPD.), Weakness (Generalized weakness with a large amount of muscle loss in his extremities.). 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: Other (see below) (No mention of any medications given prior to coming to the ED.) Middle Back Pain Score (Numeric/FACES): 9 - Related Data Allergies Allergy/AdvReac Type Severity Reaction Status Date / Time No Known Allergies Allergy Verified 04/08/21 05:25 Home Meds: Home Meds Albuterol Sulfate [Proair Respiclick] 2 puff INH Q6H PRN 11/11/19 [History] Budesonide/Formoterol [Symbicort 160-4.5 MCG] 2 puff INH BID 11/11/19 [History] Tiotropium [Spiriva HandiHaler] 18 mcg INH DAILY 11/11/19 [History] Acetaminophen [Tylenol] 650 mg PO Q6H PRN 04/08/21 [History] Ascorbic Acid [Vitamin C] 500 mg PO DAILY 04/08/21 [History] Furosemide [Lasix] 40 mg PO ASDIRECTED 04/08/21 [History] Iron Polysaccharide Complex [Iferex 150] 150 mg PO DAILY 04/08/21 [History] Mirtazapine 30 mg PO BEDTIME 04/08/21 [History] Rosuvastatin [Crestor] 20 mg PO BEDTIME 04/08/21 [History] carvediloL [Carvedilol] 12.5 mg PO BID 04/08/21 [History] hydrOXYzine HCL [Hydroxyzine HCl] 25 mg PO Q8H PRN 04/08/21 [History] traMADol [Ultram] 50 mg PO Q6H PRN 04/08/21 [History] traZODone 50 mg PO BEDTIME 04/08/21 [History] Past Medical History Cardiovascular History: Reports: Bypass (A bypass done in 2012. 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 Veins for bypass were harvested from his left lower extremity), Cardiomyopathy, Heart Failure, Hypertension, [place], Pulmonary Hypertension, PVD, SOB on Exertion (Suspect but not proven), Other (See Below) (No one thoracic aortic aneurysm.) Respiratory History: Reports: Bronchitis, Recurrent, COPD (End-stage COPD from cigarette smoking.), SOB, Other (See Below) (Oxygen dependent usually 4 L/min at all times by nasal prongs due to COPD. Often the night apparently he will place his prongs in his mouth to obtain oxygen. Feels it plugs up his nose.). Denies: Sleep Apnea Gastrointestinal History: Reports: Other (See Below) (Reports stool inconti nence. Unclear if this is because he simply is not physically able to get to the bathroom in time or has no warning that he is going to have a bowel movement. He does not believe there is any blood in his stool.) Genitourinary History: Reports: BPH (Nocturia 45.) Musculoskeletal History: Reports: Back Pain, Chronic Psychiatric History: Reports: Antisocial Behaviors, Anxiety, Depression, PTSD Social & Family History - Family History Family Medical History: No Pertinent Family History - Caffeine Use Caffeine Use: Reports: Coffee - Living Situation & Occupation Living situation: Reports: Single Occupation: Unemployed ED ROS GENERAL - Review of Systems Review Of Systems: See Below Constitutional: Reports: Malaise, Weakness, Fatigue, Decreased Appetite (He is unclear how much weight he has lost on the last 6 months.), Weight Loss. Denies: Fever, Chills HEENT: Reports: Glasses, Other (Very poor dentition. Only has a few teeth in his lower gingiva.) Respiratory: Reports: Shortness of Breath, Wheezing, Cough, Sputum. Denies: Pleuritic Chest Pain, Hemoptysis Cardiovascular: Reports: Blood Pressure Problem, Dyspnea on Exertion (Chronically even just walking to the bathroom from his bed.), Lightheadedness. Denies: Claudication, Edema, Orthopnea Endocrine: Reports: Fatigue GI/Abdominal: Reports: Abdominal Pain (Chronic), Diarrhea (Reports), Stool Incontinence, Other (Patient has a very tender umbilical hernia.) : Reports: Frequency, Incontinence (Occasional urinary incontinence) Musculoskeletal: Reports: Neck Pain, Shoulder Pain, Back Pain (Neck lower back pain), Joint Pain (Knees hips) Skin: Reports: Dryness Neurological: Reports: Difficulty Walking (Due to weakness and loss of muscle strength in his lower extremities.), Weakness. Denies: Confusion, Dizziness, Headache, Numbness, Syncope, Tingling Psychiatric: Reports: Anxiety, Depression, Mood Lability Hematologic/Lymphatic: Reports: No Symptoms Immunologic: Reports: No Symptoms ED EXAM, GENERAL - Physical Exam Exam: See Below Exam Limited By: No Limitations General Appearance: Alert, WD/WN, Moderate Distress (Agitated and anxious.), Cachetic (All ribs are easily visible. Large amount of muscle loss in his upper and lower extremities. All spinous processes on his back are easily visible.), Other (Temperature is 36.7. Heart rate was 87 and sinus. Respiratory was 26 with O2 sats of only 87% on 3 LBy nasal cannula.. 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 No: Normal Te eth, Normal Gums Head: Atraumatic, Normocephalic Neck: Normal Inspection, Limited Range of Motion (Patient has crepitus on lateral rotation of his neck. Very limited range of motion with lateral flexion. Near full flexion anteriorly. Loss of 10 degrees of extension.) Respiratory/Chest: No Accessory Muscle Use, Respiratory Distress, Decreased Breath Sounds (Sounds are diminished to the lower lung jones by about 25%.), Rales (Throughout the lower 30% of lung jones bilaterally.), Rhonchi (Both lower lobes. Both upper and lower lobes.), Wheezing. No: Lungs Clear (Tachypnea.), Normal Breath Sounds (Scattered expiratory wheezes.) Cardiovascular: Regular Rate, Rhythm, No Edema, No Gallop, No Murmur, No Rub, Other (Well-healed midline sternotomy incision from triple bypass surgery carried out several years ago.). No: Normal Peripheral Pulses Peripheral Pulses: 1+: Posterior Tibial (L), Posterior Tibial (R), Dorsalis Pedis (L), Dorsalis Pedis (R), 2+: Carotid (L), Carotid (R) GI/Abdominal: Normal Bowel Sounds, Soft, Hernia (Umbilical hernia which is very tender to touch. There is no obvious incarceration.), Hepatomegaly (1 side below the costal margin with inspiration.), Other (Patient has a diastases recti and hernia in the epigastrium. This is only partially reducible.). No: Non- Tender Back Exam: Decreased Range of Motion (Pain with sitting him up even on the bed. All spinous processes are easily visible.). No: CVA Tenderness (L), CVA Tenderness (R) Extremities: Normal Range of Motion, Joint Swelling, Other (Surgical scars left lower extremity from venous harvesting for his bypass surgery. Patient again has significant muscle loss in his upper and lower extremities.). No: Normal Inspection, Pedal Edema Neurological: Alert (Mild at the knees. No significant warmth or synovitis evident.), Oriented, CN II-XII Intact, Normal Cognition. No: Normal Gait (Not able to assess.), Disoriented, Slow to Respond, Unresponsive, Memory Loss Recent Events Psychiatric: Anxious, Depressed Mood Skin Exam: Warm, Dry, Intact, Cyanosis (Central cyanosis evident particular of his lips.). No: Normal Color, Diaphoretic, Ecchymosis, Erythema #1 Interpretation EKG Date: 04/08/21 Time: 05:35 Rhythm: NSR Rate (Beats/Min): 88 [place]: LAD-Left [place] Deviation (Mild left axis deviation -16 degrees) P-Wave: Present QRS: Other (Q waves V1 V2 compared with old anteroseptal myocardial infarction. There is a nonspecific interventricular conduction delay pattern. Left ventricular perjury with strain pattern. Decreased voltage precordial leads.) ST-T: Other (Nonspecific T wave flattening in leads I and aVL) QT: Normal EKG Interpretation Comments: Abnormal ECG Course - Vital Signs Last Recorded V/S: Last Vital Signs Temp 36.4 C 04/11/21 16:00 Pulse 91 04/11/21 18:45 Resp 20 04/11/21 18:45 BP 133/85 04/11/21 18:45 Pulse Ox 99 04/11/21 18:45 - Orders/Labs/Meds Orders: Medication Orders Acetaminophen (Acetaminophen 325 Mg Tab) 650 mg PO Q4H PRN PRN Reason: Pain (Mild 1-3)/fever Albuterol/Ipratropium (Albuterol/Ipratropium 3.0-0.5 Mg/3 Ml Neb Soln) 3 ml NEB Q4H [facility] Admin: 04/11/21 18:01 Dose: 3 ml Documented by: Admin: 04/11/21 13:58 Dose: 3 ml Documented by: Admin: 04/11/21 09:33 Dose: 3 ml Documented by: Admin: 04/11/21 06:16 Dose: Not Given Documented by: Admin: 04/11/21 01:14 Dose: Not Given Documented by: Admin: 04/10/21 21:02 Dose: 3 ml Documented by: Admin: 04/10/21 18:28 Dose: 3 ml Documented by: Admin: 04/10/21 14:19 Dose: 3 ml Documented by: Admin: 04/10/21 11:33 Dose: 3 ml Documented by: Admin: 04/10/21 06:42 Dose: Not Given Documented by: Admin: 04/10/21 02:04 Dose: Not Given Documented by: Admin: 04/09/21 21:32 Dose: 3 ml Documented by: Admin: 04/09/21 18:21 Dose: 3 ml Documented by: Admin: 04/09/21 14:19 Dose: 3 ml Documented by: Admin: 04/09/21 09:07 Dose: 3 ml Documented by: Admin: 04/09/21 05:44 Dose: 3 ml Documented by: Admin: 04/09/21 01:45 Dose: 3 ml Documented by: Admin: 04/08/21 21:05 Dose: 3 ml Documented by: Admin: 04/08/21 17:12 Dose: 3 ml Documented by: Admin: 04/08/21 13:51 Dose: 3 ml Documented by: Admin: 04/08/21 10:02 Dose: 3 ml Documented by: JONY Ascorbic Acid (Ascorbic Acid 500 Mg Tab) 500 mg PO DAILY [facility] Last Admin: 04/11/21 08:08 Dose: 500 mg Documented by: Admin: 04/10/21 08:17 Dose: 500 mg Documented by: Admin: 04/09/21 09:20 Dose: 500 mg Documented by: DEBBIE Carvedilol (Carvedilol 12.5 Mg Tab) 12.5 mg PO BID [facility] Last Admin: 04/11/21 08:07 Dose: 12.5 mg Documented by: Admin: 04/10/21 20:16 Dose: 12.5 mg Documented by: Admin: 04/10/21 08:16 Dose: 12.5 mg Documented by: Admin: 04/09/21 21:28 Dose: Not Given Documented by: Admin: 04/09/21 09:17 Dose: 12.5 mg Documented by: Admin: 04/08/21 20:06 Dose: 12.5 mg Documented by: ARELI Docusate Sodium (Docusate Sodium 100 Mg Cap) 100 mg PO BID PRN PRN Reason: Constipation Guaifenesin (Guaifenesin 600 Mg Tab.Er) 1,200 mg PO BID [facility] Last Admin: 04/11/21 08:07 Dose: 1,200 mg Documented by: Admin: 04/10/21 20:12 Dose: 1,200 mg Documented by: Admin: 04/10/21 08:17 Dose: 1,200 mg Documented by: Admin: 04/09/21 21:30 Dose: Not Given Documented by: Admin: 04/09/21 09:17 Dose: 1,200 mg Documented by: Admin: 04/08/21 20:05 Dose: 1,200 mg Documented by: ARELI Heparin Sodium (Porcine) (Heparin Sodium 5,000 Units/Ml Vial) 5,000 units SUBCUT Q8H [facility] Last Admin: 04/11/21 16:23 Dose: 5,000 units Documented by: Admin: 04/11/21 08:07 Dose: 5,000 units Documented by: Admin: 04/11/21 00:09 Dose: Not Given Documented by: Admin: 04/10/21 17:18 Dose: 5,000 units Documented by: Admin: 04/10/21 08:11 Dose: 5,000 units Documented by: Admin: 04/10/21 01:00 Dose: Not Given Documented by: Admin: 04/09/21 16:17 Dose: 5,000 units Documented by: Admin: 04/09/21 09:16 Dose: 5,000 units Documented by: Admin: 04/09/21 00:30 Dose: 5,000 units Documented by: [email or web address] Admin: 04/08/21 17:24 Dose: 5,000 units Documented by: Admin: 04/08/21 10:54 Dose: 5,000 units Documented by: APRYL Hydroxyzine HCl (Hydroxyzine Hcl 25 Mg Tab) 25 mg PO Q8H PRN PRN Reason: Anxiety Last Admin: 04/10/21 06:17 Dose: 25 mg Documented by: DEREK Sodium Chloride (Normal Saline) 250 mls @ 10 mls/hr IV ASDIRECTED [facility] Last Admin: 04/08/21 09:40 Dose: 10 mls/hr Documented by: NEEL Mirtazapine (Mirtazapine 30 Mg Tab) 30 mg PO BEDTIME [facility] Last Admin: 04/10/21 22:26 Dose: 30 mg Documented by: Admin: 04/09/21 21:30 Dose: Not Given Documented by: Admin: 04/08/21 20:05 Dose: 30 mg Documented by: ARELI Ondansetron HCl (Ondansetron 4 Mg/2 Ml Sdv) 4 mg IV Q4H PRN PRN Reason: Nausea/Vomiting Pantoprazole Sodium (Pantoprazole 40 Mg Vial) 40 mg IV Q12HR [facility] Admin: 04/11/21 08:07 Dose: 40 mg Documented by: Admin: 04/10/21 20:18 Dose: 40 mg Documented by: Admin: 04/10/21 08:11 Dose: 40 mg Documented by: Admin: 04/09/21 21:31 Dose: Not Given Documented by: Admin: 04/09/21 09:20 Dose: 40 mg Documented by: Admin: 04/08/21 20:04 Dose: 40 mg Documented by: Admin: 04/08/21 10:52 Dose: 40 mg Documented by: APRYL Polysaccharide Iron Complex (Iron Polysaccharides Complex 150 Mg Cap) 150 mg PO DAILY [facility] Last Admin: 04/11/21 08:08 Dose: 150 mg Documented by: Admin: 04/10/21 08:17 Dose: 150 mg Documented by: Admin: 04/09/21 09:20 Dose: 150 mg Documented by: DEBBIE Rosuvastatin Calcium (Rosuvastatin 10 Mg Tab) 20 mg PO BEDTIME [facility] Last Admin: 04/10/21 20:13 Dose: 20 mg Documented by: Admin: 04/10/21 20:12 Dose: 20 mg Documented by: Admin: 04/09/21 21:30 Dose: Not Given Documented by: Admin: 04/08/21 20:05 Dose: 20 mg Documented by: ARELI Sodium Chloride (Sodium Chloride 0.9% 10 Ml Syringe) 10 ml FLUSH ASDIRECTED PRN PRN Reason: Keep Vein Open Last Admin: 04/08/21 05:28 Dose: 10 ml Documented by: ALVARADO Tramadol HCl (Tramadol 50 Mg Tab) 50 mg PO Q6H PRN PRN Reason: Pain Last Admin: 04/10/21 10:01 Dose: 50 mg Documented by: Admin: 04/10/21 06:17 Dose: 50 mg Documented by: Admin: 04/09/21 14:36 Dose: 50 mg Documented by: Admin: 04/09/21 09:20 Dose: 50 mg Documented by: Admin: 04/09/21 03:36 Dose: 50 mg Documented by: Admin: 04/08/21 12:21 Dose: 50 mg Documented by: APRYL Labs: Laboratory Tests 04/08/21 04/08/21 04/08/21 Range/Units 05:15 05:15 05:15 WBC 7.38 (4.23-9.07) K/mm3 RBC 3.32 L (4.63-6.08) M/mm3 Hgb 7.7 L D (13.7-17.5) gm/dl Hct 29.2 L (40.1-51.0) % MCV 88.0 D (79.0-92.2) fl MCH 23.2 L (25.7-32.2) pg MCHC 26.4 L (32.2-35.5) g/dl RDW Std Deviation 56.6 H (35.1-43.9) fL Plt Count 329 (163-337) K/mm3 MPV 9.0 L (9.4-12.3) fl Neut % (Auto) 77.1 H (34.0-67.9) % Lymph % (Auto) 14.9 L (21.8-53.1) % [place] % (Auto) 7.5 (5.3-12.2) % Eos % (Auto) 0.1 L (0.8-7.0) Baso % (Auto) 0.3 (0.1-1.2) % Neut # (Auto) 5.69 H (1.78-5.38) K/mm3 Lymph # (Auto) 1.10 L (1.32-3.57) K/mm3 [place] # (Auto) 0.55 (0.30-0.82) K/mm3 Eos # (Auto) 0.01 L (0.04-0.54) K/mm3 Baso # (Auto) 0.02 (0.01-0.08) K/mm3 Manual Slide Review Abnormal smear ESR (0-15) mm/hr PT 11.2 (9.7-12.0) SECONDS INR 1.05 APTT 35.0 H (21.7-31.4) SECONDS Puncture Site ABG pH (7.35-7.45) ABG pCO2 (35.0-45.0) mmHg ABG pO2 (80.0-100.0) mmHg ABG HCO3 (22.0-26.0) meq/L ABG O2 Saturation (96.0-97.0) % ABG Base Excess (-2-2.0) A-a Gradient mmHg O2 Delivery Device FiO2 (21.00-100.00) % Sodium 137 (136-145) mEq/L Potassium 5.6 H (3.5-5.1) mEq/L Chloride 97 L (98-107) mEq/L Carbon Dioxide 44 H* D (21-32) mEq/L Anion Gap 1.6 L (5-15) BUN 48 H (7-18) mg/dL Creatinine 1.9 H (0.7-1.3) mg/dL Est Cr Clr Drug Dosing TNP Estimated GFR (MDRD) 35 (>60) mL/min BUN/Creatinine Ratio 25.3 H (14-18) Glucose 85 (70-99) mg/dL Calcium 8.5 (8.5-10.1) mg/dL Magnesium 1.7 L (1.8-2.4) mg/dL Total Bilirubin 0.2 (0.2-1.0) mg/dL AST 19 (15-37) U/L ALT 20 (16-63) U/L Alkaline Phosphatase 64 (46-116) U/L Troponin I 0.030 (0.00-0.056) ng/mL C-Reactive Protein 3.8 H* (<1.0) mg/dL NT-Pro-B Natriuret Pep (0-125) pg/mL Total Protein 5.5 L (6.4-8.2) g/dl Albumin 1.7 L (3.4-5.0) g/dl Globulin 3.8 gm/dL Albumin/Globulin Ratio 0.5 L (1-2) SARS-CoV-2 RNA (PAUL) (NEGATIVE) Blood Type Gel Antibody Screen Crossmatch 04/08/21 04/08/21 04/08/21 Range/Units 05:15 05:15 05:15 WBC (4.23-9.07) K/mm3 RBC (4.63-6.08) M/mm3 Hgb (13.7-17.5) gm/dl Hct (40.1-51.0) % MCV (79.0-92.2) fl MCH (25.7-32.2) pg MCHC (32.2-35.5) g/dl RDW Std Deviation (35.1-43.9) fL Plt Count (163-337) K/mm3 MPV (9.4-12.3) fl Neut % (Auto) (34.0-67.9) % Lymph % (Auto) (21.8-53.1) % [place] % (Auto) (5.3-12.2) % Eos % (Auto) (0.8-7.0) Baso % (Auto) (0.1-1.2) % Neut # (Auto) (1.78-5.38) K/mm3 Lymph # (Auto) (1.32-3.57) K/mm3 [place] # (Auto) (0.30-0.82) K/mm3 Eos # (Auto) (0.04-0.54) K/mm3 Baso # (Auto) (0.01-0.08) K/mm3 Manual Slide Review ESR 59 H (0-15) mm/hr PT (9.7-12.0) SECONDS INR APTT (21.7-31.4) SECONDS Puncture Site ABG pH (7.35-7.45) ABG pCO2 (35.0-45.0) mmHg ABG pO2 (80.0-100.0) mmHg ABG HCO3 (22.0-26.0) meq/L ABG O2 Saturation (96.0-97.0) % ABG Base Excess (-2-2.0) A-a Gradient mmHg O2 Delivery Device FiO2 (21.00-100.00) % Sodium (136-145) mEq/L Potassium (3.5-5.1) mEq/L Chloride (98-107) mEq/L Carbon Dioxide (21-32) mEq/L Anion Gap (5-15) BUN (7-18) mg/dL Creatinine (0.7-1.3) mg/dL Est Cr Clr Drug Dosing Estimated GFR (MDRD) (>60) mL/min BUN/Creatinine Ratio (14-18) Glucose (70-99) mg/dL Calcium (8.5-10.1) mg/dL Magnesium (1.8-2.4) mg/dL Total Bilirubin (0.2-1.0) mg/dL AST (15-37) U/L ALT (16-63) U/L Alkaline Phosphatase (46-116) U/L Troponin I (0.00-0.056) ng/mL C-Reactive Protein (<1.0) mg/dL NT-Pro-B Natriuret Pep 98473 H (0-125) pg/mL Total Protein (6.4-8.2) g/dl Albumin (3.4-5.0) g/dl Globulin gm/dL Albumin/Globulin Ratio (1-2) SARS-CoV-2 RNA (PAUL) Negative (NEGATIVE) Blood Type Gel Antibody Screen Crossmatch 04/08/21 04/08/21 Range/Units 05:15 08:20 WBC (4.23-9.07) K/mm3 RBC (4.63-6.08) M/mm3 Hgb (13.7-17.5) gm/dl Hct (40.1-51.0) % MCV (79.0-92.2) fl MCH (25.7-32.2) pg MCHC (32.2-35.5) g/dl RDW Std Deviation (35.1-43.9) fL Plt Count (163-337) K/mm3 MPV (9.4-12.3) fl Neut % (Auto) (34.0-67.9) % Lymph % (Auto) (21.8-53.1) % [place] % (Auto) (5.3-12.2) % Eos % (Auto) (0.8-7.0) Baso % (Auto) (0.1-1.2) % Neut # (Auto) (1.78-5.38) K/mm3 Lymph # (Auto) (1.32-3.57) K/mm3 [place] # (Auto) (0.30-0.82) K/mm3 Eos # (Auto) (0.04-0.54) K/mm3 Baso # (Auto) (0.01-0.08) K/mm3 Manual Slide Review ESR (0-15) mm/hr PT (9.7-12.0) SECONDS INR APTT (21.7-31.4) SECONDS Puncture Site Rt radial ABG pH 7.26 L (7.35-7.45) ABG pCO2 102.4 H* (35.0-45.0) mmHg ABG pO2 99.0 (80.0-100.0) mmHg ABG HCO3 44.7 H (22.0-26.0) meq/L ABG O2 Saturation 96.6 (96.0-97.0) % ABG Base Excess 16.1 H (-2-2.0) A-a Gradient 486 mmHg O2 Delivery Device Bipap 14/6 FiO2 100.00 (21.00-100.00) % Sodium (136-145) mEq/L Potassium (3.5-5.1) mEq/L Chloride (98-107) mEq/L Carbon Dioxide (21-32) mEq/L Anion Gap (5-15) BUN (7-18) mg/dL Creatinine (0.7-1.3) mg/dL Est Cr Clr Drug Dosing Estimated GFR (MDRD) (>60) mL/min BUN/Creatinine Ratio (14-18) Glucose (70-99) mg/dL Calcium (8.5-10.1) mg/dL Magnesium (1.8-2.4) mg/dL Total Bilirubin (0.2-1.0) mg/dL AST (15-37) U/L ALT (16-63) U/L Alkaline Phosphatase (46-116) U/L Troponin I (0.00-0.056) ng/mL C-Reactive Protein (<1.0) mg/dL NT-Pro-B Natriuret Pep (0-125) pg/mL Total Protein (6.4-8.2) g/dl Albumin (3.4-5.0) g/dl Globulin gm/dL Albumin/Globulin Ratio (1-2) SARS-CoV-2 RNA (PAUL) (NEGATIVE) Blood Type O POSITIVE Gel Antibody Screen Negative Crossmatch See Detail Meds: Medications Generic Name Dose Route Start Last Admin Trade Name Freq PRN Reason Stop Dose Admin Acetaminophen 650 mg 04/08/21 08:33 Acetaminophen 325 Mg Tab PO Q4H PRN Pain (Mild 1-3)/fever Albuterol/Ipratropium 3 ml 04/08/21 10:00 04/11/21 18:01 Albuterol/Ipratropium 3.0-0.5 Mg/3 Ml Neb Soln NEB 3 ml Q4H BOBBI Administration Ascorbic Acid 500 mg 04/09/21 09:00 04/11/21 08:08 Ascorbic Acid 500 Mg Tab PO 500 mg DAILY BOBBI Administration Carvedilol 12.5 mg 04/08/21 21:00 04/11/21 08:07 Carvedilol 12.5 Mg Tab PO 12.5 mg BID BOBBI Administration Docusate Sodium 100 mg 04/08/21 08:33 Docusate Sodium 100 Mg Cap PO BID PRN Constipation Guaifenesin 1,200 mg 04/08/21 21:00 04/11/21 08:07 Guaifenesin 600 Mg Tab.Er PO 1,200 mg BID BOBBI Administration Heparin Sodium (Porcine) 5,000 units 04/08/21 08:45 04/11/21 16:23 Heparin Sodium 5,000 Units/Ml Vial SUBCUT 5,000 units Q8H BOBBI Administration Hydroxyzine HCl 25 mg 04/08/21 09:17 04/10/21 06:17 Hydroxyzine Hcl 25 Mg Tab PO 25 mg Q8H PRN Administration Anxiety Sodium Chloride 250 mls @ 10 mls/hr 04/08/21 06:45 04/08/21 09:40 Normal Saline IV 10 mls/hr ASDIRECTED BOBBI Administration Mirtazapine 30 mg 04/08/21 21:00 04/10/21 22:26 Mirtazapine 30 Mg Tab PO 30 mg BEDTIME BOBBI Administration Ondansetron HCl 4 mg 04/08/21 08:33 Ondansetron 4 Mg/2 Ml Sdv IV Q4H PRN Nausea/Vomiting Pantoprazole Sodium 40 mg 04/08/21 09:00 04/11/21 08:07 Pantoprazole 40 Mg Vial IV 40 mg Q12HR BOBBI Administration Polysaccharide Iron Complex 150 mg 04/09/21 09:00 04/11/21 08:08 Iron Polysaccharides Complex 150 Mg Cap PO 150 mg DAILY BOBBI Administration Rosuvastatin Calcium 20 mg 04/08/21 21:00 04/10/21 20:13 Rosuvastatin 10 Mg Tab PO 20 mg BEDTIME BOBBI Administration Sodium Chloride 10 ml 04/08/21 05:18 04/08/21 05:28 Sodium Chloride 0.9% 10 Ml Syringe FLUSH 10 ml ASDIRECTED PRN Administration Keep Vein Open Tramadol HCl 50 mg 04/08/21 08:41 04/10/21 10:01 Tramadol 50 Mg Tab PO 50 mg Q6H PRN Administration Pain Discontinued Medications Generic Name Dose Route Start Last Admin Trade Name Freq PRN Reason Stop Dose Admin Acetaminophen 650 mg 04/08/21 08:41 Acetaminophen 325 Mg Tab PO Q6H PRN Pain Albuterol/Ipratropium 3 ml 04/08/21 05:24 04/08/21 05:32 Albuterol/Ipratropium 3.0-0.5 Mg/3 Ml Neb Soln NEB 3 ml Q4H PRN Administration Shortness Of Breath/wheezing Albuterol/Ipratropium 3 ml 04/08/21 08:45 04/08/21 09:57 Albuterol/Ipratropium 3.0-0.5 Mg/3 Ml Neb Soln NEB Not Given Q4H [facility] Dextrose/Water 50 ml 04/08/21 06:26 04/08/21 06:32 50% Dextrose In Water 50 Ml Syringe IVPUSH 04/08/21 06:27 50 ml ONETIME ONE Administration Furosemide 40 mg 04/08/21 06:16 04/08/21 06:27 Furosemide 40 Mg/4 Ml Vial IVPUSH 04/08/21 06:17 40 mg NOW ONE Administration Furosemide 40 mg 04/08/21 08:19 04/08/21 08:26 Furosemide 40 Mg/4 Ml Vial IVPUSH 04/08/21 08:20 40 mg NOW ONE Administration Furosemide 40 mg 04/08/21 09:00 04/08/21 20:04 Furosemide 40 Mg/4 Ml Vial IVPUSH 40 mg BID BOBBI Administration Furosemide 40 mg 04/09/21 09:00 04/10/21 08:16 Furosemide 40 Mg Tab PO 40 mg DAILY BOBBI Administration Haloperidol 2 mg 04/08/21 21:00 04/09/21 21:30 Haloperidol 1 Mg Tab PO Not Given BEDTIME BOBBI Haloperidol Lactate 2 mg 04/09/21 20:50 04/09/21 21:07 Haloperidol Lactate 5 Mg/Ml Sdv IM 04/09/21 20:51 Not Given ONETIME ONE Haloperidol Lactate 5 mg 04/09/21 21:08 04/09/21 21:17 Haloperidol Lactate 5 Mg/Ml Sdv IVPUSH 04/09/21 21:09 5 mg ONETIME ONE Administration Hydromorphone HCl 0.5 mg 04/08/21 05:20 04/08/21 05:28 Hydromorphone 0.5 Mg/0.5 Ml Syringe IVPUSH 04/08/21 05:21 0.5 mg ONETIME ONE Administration Magnesium Sulfate 2 gm/ Premix 50 mls @ 25 mls/hr 04/09/21 08:51 04/09/21 09:16 IV 04/09/21 10:50 25 mls/hr ONETIME ONE Administration Sodium Chloride 1,000 mls @ 125 mls/hr 04/10/21 09:45 04/10/21 10:09 Normal Saline IV 04/10/21 17:00 125 mls/hr ASDIRECTED BOBBI Administration Insulin Human Regular 6 unit 04/08/21 06:27 04/08/21 06:32 Insulin Regular, Human 100 Units/Ml 3 Ml Vial IV 04/08/21 06:28 6 unit ONETIME ONE Administration Lorazepam 0.5 mg 04/08/21 05:19 04/08/21 05:28 Lorazepam 2 Mg/Ml Sdv IVPUSH 04/08/21 05:20 0.5 mg ONETIME ONE Administration Metoclopramide HCl 7.5 mg 04/08/21 05:20 04/08/21 05:28 Metoclopramide 10 Mg/2 Ml Sdv IVPUSH 04/08/21 05:21 7.5 mg ONETIME ONE Administration Non-Formulary Medication 500 mg 04/08/21 09:00 04/09/21 10:12 Ascorbic Acid [Vitamin C] PO Not Given DAILY BOBBI Non-Formulary Medication 12.5 mg 04/08/21 09:00 04/09/21 10:12 Carvedilol PO Not Given DAILY BOBBI Non-Formulary Medication 1 tab 04/08/21 09:00 04/09/21 10:12 Ferrous Sulfate PO Not Given DAILY BOBBI Non-Formulary Medication 25 mg 04/08/21 08:41 Hydroxyzine Hcl PO Q8H PRN Anxiety Quetiapine Fumarate 25 mg 04/10/21 09:00 04/10/21 08:16 Quetiapine 25 Mg Tab PO 25 mg BID BOBBI Administration Risperidone 0.5 mg 04/10/21 10:45 04/10/21 11:54 Risperidone 0.5 Mg Tab PO Not Given BID BOBBI Sodium Polystyrene Sulfonate 30 gm 04/10/21 09:44 04/10/21 10:01 Sodium Polystyrene Sulfonate 15 Gm/60 Ml Susp 60 Ml Bot PO 04/10/21 09:45 15 gm ONETIME ONE Administration Sodium Polystyrene Sulfonate 45 gm 04/11/21 07:22 04/11/21 07:59 Sodium Polystyrene Sulfonate 15 Gm/60 Ml Susp 60 Ml Bot PO 04/11/21 07:23 45 gm NOW ONE Administration Trazodone HCl 50 mg 04/08/21 21:00 Trazodone 50 Mg Tab PO BEDTIME BOBBI - Radiology Interpretation Free Text/Narrative:: 70-year-old male presents to the ED per [facility]. Essentially he has become problematic in terms of his behavior. He is averse to having much help from the nurses and care providers. He has been very reluctant to be admitted to the half-way which occurred on February 28 of this year. Patient does have some idea that he is no longer able to care for himself at home. He is extremely frustrated with his current life situation problems. He states his back hurts all the time .He is in chronic severe pain. He is short of breath and dyspneic all the time which has worsened over the last couple of days. He feels congested and full of fluid. Patient has a chronic productive sounding cough. He has lost a great deal of weight since I have seen him last. He is alert and oriented to person place and time. He reports chronic stool incontinence as he does not feel the need to have a bowel movement anymore. Not sure if this is true or whether he simply cannot get to the [facility] in time due to his weakness and dyspnea. Plan he will have a chest x-ray carried out. Labs to be done to include a BNP as he does have some rales bilaterally and rhonchi throughout both lung jones. No signs of an infective process. He is currently on oxygen at 4 L/min by nasal cannula which will be continued. Saline lock will be started. He will be given Ativan 0.5 mg IV with Dilaudid 0.5 mg IV for his back pain and Reglan 7.5 IV for nausea relief. Patient will also be given a DuoNeb treatment. Patient apparently has been very difficult to manage and care for in the half-way since his arrival. Patient has expressed many times just a wish to to the nursing staff at the half-way and to social science teacher. His current CODE STATUS is code 2 which is no CPR. - Re-Assessments/Exams Free Text/Narrative Re-Assessment/Exam: 04/08/21 06:09 Patient's blood pressure is 98/60 with a O2 sat of 92% on 4 L/min by nasal cannula. Heart rate is 82 in sinus. Patient has fallen asleep. Patient would not be able to tolerate a nitroglycerin drip to take the workload off of his heart (reduce his afterload) . 04/08/21 06:11 White count is normal at 7.38. The differential shows 77.1% neutrophils on the auto differential. Hemoglobin is very low at 7.7. Hematocrit is 29.2. MCV is 88. Platelet count is normal at 329,000. Sodium is 137 with a potassium elevated at 5.6. Chloride is 97. BUN is 48 with a creatinine of 1.9. GFR is 35 i.e. stage IIIb renal insufficiency. Glucose is 85. Calcium is 8.5. Magnesium is low at 1.7. Liver function is normal. Troponin I is 0.030. C-reactive protein is elevated at 3.8. BNP is 27,322. Total protein is 5.5 with an albumin fraction of 1.7. Plan I will have the patient crossmatched for 3 units of packed cells with a view to giving each unit over 4 hours. He will be given Lasix 40 mg IV now. I suspect his renal function declines with the use of Lasix chronically. This will have to be determined while in hospital. Overall the patient's condition is grave with a very poor prognosis due to multiple system failure. He has end-stage COPD and severe congestive heart failure with moderate renal insufficiency combined with anemia. Cause of the anemia has not been established. 04/08/21 06:23 Serum bicarbonate is elevated at 44 indicating he is a chronic CO2 retainer. Hyperkalemia to be treated with Lasix 40 mg IV. Will also be given 6 units of regular insulin IV with one amp of D50. COVID-19 screen did come back negative. Portable chest x-ray reveals him to be rotated significantly into the left. Lungs are hyperinflated. Diffuse vascular congestion appearance. Marked cardiomegaly appreciated. Thoracic aortic aneurysm appreciated. Unable to see the costophrenic angles bilaterally and therefore I cannot rule out mild pleural effusions. 04/08/21 06:34 Patient will need to be admitted to the hospital. Currently hospitalist engineering specialist is off shift at 0700 hrs. A new [facility] physician is coming on shift. Plan will be to wait until the new physician starts the next shift of hospitalist care. 04/08/21 06:37 Sedimentation rate has come back elevated at 59. The patient may well have an underlying malignancy to account for blood loss possibly from the GI tract. He is too ill to undergo any serious investigations at this time. Patient may well have multiple myeloma is a consideration due to his severe low back pain. 04/08/21 07:20 I have personally spoken to Dr.Chris Reis --hospitalist who is starting this morning on the med surgery floor. He will come and see this patient in the emergency room when he has things sorted out on the fabian. Departure - Departure Time of Disposition: 09:50 Disposition: Admitted As Inpatient 68 Condition: Poor Clinical Impression: Hyperkalemia, diminished renal excretion, Malnutrition compromising bodily function, Dependence on continuous supplemental oxygen COPD (chronic obstructive pulmonary disease) with emphysema Qualifiers: Emphysema type: panlobular Qualified Code(s): J43.1 - Panlobular emphysema CHF (congestive heart failure), NYHA class IV Qualifiers: Congestive heart failure type: diastolic Congestive heart failure chronicity: acute on chronic Qualified Code(s): I50.33 - Acute on chronic diastolic (congestive) heart failure Anemia Qualifiers: Anemia type: unspecified type Qualified Code(s): D64.9 - Anemia, unspecified Chronic lower back pain Qualifiers: Back pain laterality: unspecified Sciatica presence: without sciatica Qualified Code(s): M54.5 - Low back pain - Discharge Information *PRESCRIPTION DRUG MONITORING PROGRAM REVIEWED*: Not Applicable *COPY OF PRESCRIPTION DRUG MONITORING REPORT IN PATIENT MERY: Not Applicable
[2021-04-08] MEDS ORDERED: Albuterol/Ipratropium 3.0-0.5 MG/3 ML Neb Soln NEB PRN (05:24)
[2021-04-08] MEDS ORDERED: Furosemide 40 MG/4 ML VIAL IVPUSH ONE ×2 (06:16→08:19)
[2021-04-08] MEDS ORDERED: 50% Dextrose in Water 50 ML Syringe IVPUSH ONE (06:26)
[2021-04-08] MEDS ORDERED: Insulin Regular, Human 100 Units/ML 3 ML Vial IV ONE (06:27)
[2021-04-08] MEDS ORDERED: Sodium Chloride 0.9% 250 ML IV SCH (06:45)
--- NOTE | 2021-04-08 06:57 | CR ---
Chest: AP view of the chest was obtained. Comparison: Prior chest x-ray of 11/11/19. Aortic arch is widened and appears similar to prior chest x-ray. This is compatible with stable aneurysmal dilatation. Prior sternotomy is noted with previous CABG. Pulmonary vessels are diffusely congested. Bilateral pleural effusions are noted. Bony structures show nothing acute. Impression: 1. Stable aneurysm of the thoracic aorta. Previous sternotomy and CABG are noted. 2. Findings compatible with CHF as described above. Diagnostic code #3
[2021-04-08] MEDS ORDERED: Acetaminophen 325 MG Tab PO PRN ×2 (08:33→08:41)
[2021-04-08] MEDS ORDERED: Docusate Sodium 100 MG Cap PO PRN (08:33)
[2021-04-08] MEDS ORDERED: Ondansetron 4 MG/2 ML SDV IV PRN (08:33)
[2021-04-08] MEDS ORDERED: Non-Formulary Medication 1 Each (Hydroxyzine Hcl 25 MG Tablet) PO PRN (08:41)
[2021-04-08] MEDS ORDERED: Albuterol/Ipratropium 3.0-0.5 MG/3 ML Neb Soln NEB SCH (08:45)
[2021-04-08] MEDS ORDERED: FERROUS SULFATE 140 MG PO SCH (09:00)
[2021-04-08] MEDS ORDERED: CARVEDILOL 25 MG PO SCH (09:00)
[2021-04-08] MEDS: Albuterol/Ipratropium 3.0-0.5 MG/3 ML Neb Soln NEB SCH ×4 (10:02→21:05)
[2021-04-08] MEDS: Furosemide 40 MG/4 ML VIAL IVPUSH SCH ×2 (10:51→20:04)
[2021-04-08] MEDS: Pantoprazole 40 MG Vial IV SCH ×2 (10:52→20:04)
[2021-04-08] MEDS: Heparin Sodium 5,000 Units/ML Vial SUBCUT SCH ×2 (10:54→17:24)
--- NOTE | 2021-04-08 11:14 | PCM.HP.2 ---
H&P History of Present Illness - General Date of Service: 04/08/21 Admit Problem/Dx: Admission Diagnosis/Problem Admission Diagnosis/Problem Acute on chronic respiratory hypoxic and hypercarbic respiratory failure, acute on chronic congestive heart failure, COPD on home 4 L O2 Source of Information: Other (See department personnel) History Limitations: Reports: Altered Mental Status - History of Present Illness Initial Comments - Free Text/Narative: Patient is a 70-year-old male with a past medical history only known for what is noted below who was never been admitted to our facility before, who presented from a local shelter for being noticeably short of breath. 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 [place] to the ER report the patient was notably short of breath and in distress at a local shelter. He was brought in in the web application dev specialist hours for evaluation. Patient was somewhat combative with emergency room personnel. Patient was given Ativan and Dilaudid so that he could be controlled in order to be evaluated. Patient was saturating well on 4 L of supplemental oxygen. Work-up was notable for acute on chronic congestive heart failure. The patient was not endorsing any specific complaints before receiving Ativan and Dilaudid. According to ER sources, the patient has been failing on an outpatient basis. At the shelter, the patient has stated that they are killing him fast enough and/or he has the will to . His son who is the power of divorce attorney lives in [facility]. He has not been able to be contacted. In the emergency department he was also noted to be anemic with a hemoglobin lower than previous values. Transfusion was ordered by the emergency room physician. He also received Lasix for his heart failure. The patient was referred to the internal medicine service for further work-up and management. 14 point review of systems cannot be reviewed with the patient due to his altered mental status with acute hypercarbic respiratory failure. CODE STATUS: DNR/DNI Middle Back Pain Score (Numeric/FACES): 9 - Related Data Allergies/Adverse Reactions: Allergies Allergy/AdvReac Type Severity Reaction Status Date / Time No Known Allergies Allergy Verified 04/08/21 05:25 Home Medications: Home Meds RX: Albuterol Sulfate [Proair Respiclick] 2 puff INH Q6H PRN 11/11/19 [History] RX: Budesonide/Formoterol [Symbicort 160-4.5 MCG] 2 puff INH BID 11/11/19 [History] RX: Tiotropium [Spiriva HandiHaler] 18 mcg INH DAILY 11/11/19 [History] Acetaminophen [Tylenol] 650 mg PO Q6H PRN 04/08/21 [History] Ascorbic Acid [Vitamin C] 500 mg PO DAILY 04/08/21 [History] Furosemide [Lasix] 40 mg PO ASDIRECTED 04/08/21 [History] Iron Polysaccharide Complex [Iferex 150] 150 mg PO DAILY 04/08/21 [History] RX: Mirtazapine 30 mg PO BEDTIME 04/08/21 [History] RX: carvediloL [Carvedilol] 12.5 mg PO BID 04/08/21 [History] RX: traZODone 50 mg PO BEDTIME 04/08/21 [History] Rosuvastatin [Crestor] 20 mg PO BEDTIME 04/08/21 [History] hydrOXYzine HCL [Hydroxyzine HCl] 25 mg PO Q8H PRN 04/08/21 [History] traMADol [Ultram] 50 mg PO Q6H PRN 04/08/21 [History] Past Medical History Cardiovascular History: Reports: Bypass (A bypass done in 2012. 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 Veins for bypass were harvested from his left lower extremity), Cardiomyopathy, Heart Failure, Hypertension, MO, Pulmonary Hypertension, PVD, SOB on Exertion (Suspect but not proven), Other (See Below) (No one thoracic aortic aneurysm.) Respiratory History: Reports: Bronchitis, Recurrent, COPD (End-stage COPD from cigarette smoking.), SOB, Other (See Below) (Oxygen dependent usually 4 L/min at all times by nasal prongs due to COPD. Often the night apparently he will place his prongs in his mouth to obtain oxygen. Feels it plugs up his nose.). Denies: Sleep Apnea Gastrointestinal History: Reports: Other (See Below) (Reports stool incontinence. Unclear if this is because he simply is not physically able to get to the bathroom in time or has no warning that he is going to have a bowel movement. He does not believe there is any blood in his stool.) Genitourinary History: Reports: BPH Musculoskeletal History: Reports: Back Pain, Chronic Psychiatric History: Reports: Antisocial Behaviors, Anxiety, Depression, PTSD Social & Family History - Family History Family Medical History: No Pertinent Family History - Tobacco Use Tobacco Use Status *Q: Former Tobacco User Used Tobacco, but Quit: Yes Month/Year Tobacco Last Used: unkown - Caffeine Use Caffeine Use: Reports: Coffee - Recreational Drug Use Recreational Drug Use: No - Living Situation & Occupation Living situation: Reports: Single Occupation: Unemployed H&P Review of Systems - Review of Systems: Review Of Systems: Unable To Obtain (Altered mental status secondary to hypercarbia.) Reason Not Obtained: Patient obtunded Exam - Exam Exam: See Below - Vital Signs Vital Signs: Last Vital Signs Temp 97.1 F 04/08/21 10:12 Pulse 74 04/08/21 10:12 Resp 17 04/08/21 10:12 BP 117/80 04/08/21 10:12 Pulse Ox 99 04/08/21 10:14 - Exam Quality Assessment: Supplemental Oxygen (via BiPAP) General: Obtunded HEENT: Conjunctiva Clear, Nares Patent, Pupils Equal Neck: Supple, Trachea Midline Lungs: Decreased Breath Sounds, Crackles. No: Rhonchi, Stridor, Wheezing Cardiovascular: Regular Rate, Normal S1, Normal S2 GI/Abdominal Exam: Normal Bowel Sounds, Soft, Non-Tender (Male) Exam: Hernia (Ventral) Extremities: Normal Inspection, No Pedal Edema Skin: Warm, Dry Neuro Extensive - Motor, Sensory, Reflexes: Normal Reflexes Psychiatric: Other (Can be aroused) - Patient Data Lab Results Last 24 hrs: Laboratory Results - last 24 hr 04/08/21 04/08/21 04/08/21 Range/Units 05:15 05:15 05:15 WBC 7.38 (4.23-9.07) K/mm3 RBC 3.32 L (4.63-6.08) M/mm3 Hgb 7.7 L D (13.7-17.5) gm/dl Hct 29.2 L (40.1-51.0) % MCV 88.0 D (79.0-92.2) fl MCH 23.2 L (25.7-32.2) pg MCHC 26.4 L (32.2-35.5) g/dl RDW Std Deviation 56.6 H (35.1-43.9) fL Plt Count 329 (163-337) K/mm3 MPV 9.0 L (9.4-12.3) fl Neut % (Auto) 77.1 H (34.0-67.9) % Lymph % (Auto) 14.9 L (21.8-53.1) % Gage % (Auto) 7.5 (5.3-12.2) % Eos % (Auto) 0.1 L (0.8-7.0) Baso % (Auto) 0.3 (0.1-1.2) % Neut # (Auto) 5.69 H (1.78-5.38) K/mm3 Lymph # (Auto) 1.10 L (1.32-3.57) K/mm3 Gage # (Auto) 0.55 (0.30-0.82) K/mm3 Eos # (Auto) 0.01 L (0.04-0.54) K/mm3 Baso # (Auto) 0.02 (0.01-0.08) K/mm3 Manual Slide Review Abnormal smear ESR (0-15) mm/hr PT 11.2 (9.7-12.0) SECONDS INR 1.05 APTT 35.0 H (21.7-31.4) SECONDS Puncture Site ABG pH (7.35-7.45) ABG pCO2 (35.0-45.0) mmHg ABG pO2 (80.0-100.0) mmHg ABG HCO3 (22.0-26.0) meq/L ABG O2 Saturation (96.0-97.0) % ABG Base Excess (-2-2.0) Jona Test A-a Gradient mmHg O2 Delivery Device FiO2 (21.00-100.00) % Sodium 137 (136-145) mEq/L Potassium 5.6 H (3.5-5.1) mEq/L Chloride 97 L (98-107) mEq/L Carbon Dioxide 44 H* D (21-32) mEq/L Anion Gap 1.6 L (5-15) BUN 48 H (7-18) mg/dL Creatinine 1.9 H (0.7-1.3) mg/dL Est Cr Clr Drug Dosing TNP Estimated GFR (MDRD) 35 (>60) mL/min BUN/Creatinine Ratio 25.3 H (14-18) Glucose 85 (70-99) mg/dL Calcium 8.5 (8.5-10.1) mg/dL Magnesium 1.7 L (1.8-2.4) mg/dL Total Bilirubin 0.2 (0.2-1.0) mg/dL AST 19 (15-37) U/L ALT 20 (16-63) U/L Alkaline Phosphatase 64 (46-116) U/L Troponin I 0.030 (0.00-0.056) ng/mL C-Reactive Protein 3.8 H* (<1.0) mg/dL NT-Pro-B Natriuret Pep (0-125) pg/mL Total Protein 5.5 L (6.4-8.2) g/dl Albumin 1.7 L (3.4-5.0) g/dl Globulin 3.8 gm/dL Albumin/Globulin Ratio 0.5 L (1-2) SARS-CoV-2 RNA (PAUL) (NEGATIVE) Blood Type Gel Antibody Screen Crossmatch 04/08/21 04/08/21 04/08/21 Range/Units 05:15 05:15 05:15 WBC (4.23-9.07) K/mm3 RBC (4.63-6.08) M/mm3 Hgb (13.7-17.5) gm/dl Hct (40.1-51.0) % MCV (79.0-92.2) fl MCH (25.7-32.2) pg MCHC (32.2-35.5) g/dl RDW Std Deviation (35.1-43.9) fL Plt Count (163-337) K/mm3 MPV (9.4-12.3) fl Neut % (Auto) (34.0-67.9) % Lymph % (Auto) (21.8-53.1) % Gage % (Auto) (5.3-12.2) % Eos % (Auto) (0.8-7.0) Baso % (Auto) (0.1-1.2) % Neut # (Auto) (1.78-5.38) K/mm3 Lymph # (Auto) (1.32-3.57) K/mm3 Gage # (Auto) (0.30-0.82) K/mm3 Eos # (Auto) (0.04-0.54) K/mm3 Baso # (Auto) (0.01-0.08) K/mm3 Manual Slide Review ESR 59 H (0-15) mm/hr PT (9.7-12.0) SECONDS INR APTT (21.7-31.4) SECONDS Puncture Site ABG pH (7.35-7.45) ABG pCO2 (35.0-45.0) mmHg ABG pO2 (80.0-100.0) mmHg ABG HCO3 (22.0-26.0) meq/L ABG O2 Saturation (96.0-97.0) % ABG Base Excess (-2-2.0) Jona Test A-a Gradient mmHg O2 Delivery Device FiO2 (21.00-100.00) % Sodium (136-145) mEq/L Potassium (3.5-5.1) mEq/L Chloride (98-107) mEq/L Carbon Dioxide (21-32) mEq/L Anion Gap (5-15) BUN (7-18) mg/dL Creatinine (0.7-1.3) mg/dL Est Cr Clr Drug Dosing Estimated GFR (MDRD) (>60) mL/min BUN/Creatinine Ratio (14-18) Glucose (70-99) mg/dL Calcium (8.5-10.1) mg/dL Magnesium (1.8-2.4) mg/dL Total Bilirubin (0.2-1.0) mg/dL AST (15-37) U/L ALT (16-63) U/L Alkaline Phosphatase (46-116) U/L Troponin I (0.00-0.056) ng/mL C-Reactive Protein (<1.0) mg/dL NT-Pro-B Natriuret Pep 21093 H (0-125) pg/mL Total Protein (6.4-8.2) g/dl Albumin (3.4-5.0) g/dl Globulin gm/dL Albumin/Globulin Ratio (1-2) SARS-CoV-2 RNA (PAUL) Negative (NEGATIVE) Blood Type Gel Antibody Screen Crossmatch 04/08/21 04/08/21 04/08/21 Range/Units 05:15 08:20 09:29 WBC (4.23-9.07) K/mm3 RBC (4.63-6.08) M/mm3 Hgb (13.7-17.5) gm/dl Hct (40.1-51.0) % MCV (79.0-92.2) fl MCH (25.7-32.2) pg MCHC (32.2-35.5) g/dl RDW Std Deviation (35.1-43.9) fL Plt Count (163-337) K/mm3 MPV (9.4-12.3) fl Neut % (Auto) (34.0-67.9) % Lymph % (Auto) (21.8-53.1) % Gage % (Auto) (5.3-12.2) % Eos % (Auto) (0.8-7.0) Baso % (Auto) (0.1-1.2) % Neut # (Auto) (1.78-5.38) K/mm3 Lymph # (Auto) (1.32-3.57) K/mm3 Gage # (Auto) (0.30-0.82) K/mm3 Eos # (Auto) (0.04-0.54) K/mm3 Baso # (Auto) (0.01-0.08) K/mm3 Manual Slide Review ESR (0-15) mm/hr PT (9.7-12.0) SECONDS INR APTT (21.7-31.4) SECONDS Puncture Site Rt radial Rt radial ABG pH 7.26 L 7.27 L (7.35-7.45) ABG pCO2 102.4 H* 100.6 H* (35.0-45.0) mmHg ABG pO2 99.0 198.0 H* (80.0-100.0) mmHg ABG HCO3 44.7 H 44.3 H (22.0-26.0) meq/L ABG O2 Saturation 96.6 98.8 H (96.0-97.0) % ABG Base Excess 16.1 H 15.6 H (-2-2.0) Jona Test Positive A-a Gradient 486 389 mmHg O2 Delivery Device Bipap 14/6 Bipap 14/6 FiO2 100.00 100.00 (21.00-100.00) % Sodium (136-145) mEq/L Potassium (3.5-5.1) mEq/L Chloride (98-107) mEq/L Carbon Dioxide (21-32) mEq/L Anion Gap (5-15) BUN (7-18) mg/dL Creatinine (0.7-1.3) mg/dL Est Cr Clr Drug Dosing Estimated GFR (MDRD) (>60) mL/min BUN/Creatinine Ratio (14-18) Glucose (70-99) mg/dL Calcium (8.5-10.1) mg/dL Magnesium (1.8-2.4) mg/dL Total Bilirubin (0.2-1.0) mg/dL AST (15-37) U/L ALT (16-63) U/L Alkaline Phosphatase (46-116) U/L Troponin I (0.00-0.056) ng/mL C-Reactive Protein (<1.0) mg/dL NT-Pro-B Natriuret Pep (0-125) pg/mL Total Protein (6.4-8.2) g/dl Albumin (3.4-5.0) g/dl Globulin gm/dL Albumin/Globulin Ratio (1-2) SARS-CoV-2 RNA (PAUL) (NEGATIVE) Blood Type O POSITIVE Gel Antibody Screen Negative Crossmatch See Detail Result Diagrams: 04/08/21 05:15 04/08/21 05:15 Sepsis Event Note - Evaluation Sepsis Screening Result: No Definite Risk - Focused Exam Vital Signs: Vital Signs Temp Temp Pulse Resp BP BP Pulse Ox 04/08/21 10:14 99 04/08/21 10:12 97.1 F 74 17 117/80 99 04/08/21 10:03 04/08/21 10:00 100 04/08/21 08:31 96.8 F L 28 H 96/58 L 04/08/21 08:16 96.8 F L 14 97/57 L 04/08/21 05:37 04/08/21 05:21 98.1 F 87 26 H 127/78 87 L Pulse Ox Pulse Ox 04/08/21 10:14 04/08/21 10:12 04/08/21 10:03 100 04/08/21 10:00 04/08/21 08:31 04/08/21 08:16 04/08/21 05:37 89 L 04/08/21 05:21 Problem List Initiated/Reviewed/Updated: Yes Orders Last 24hrs: Active Orders 24 hr Category Date Time Status Patient Status [ADT] Routine ADT 04/08/21 08:33 Active Antiembolic Devices [RC] PER UNIT ROUTINE Care 04/08/21 08:37 Active BIPAP [RT BiPAP/CPAP] [RC] ASDIRECTED Care 04/08/21 08:26 Active Bedrest Bathroom Privileges [RC] ASDIRECTED Care 04/08/21 08:33 Active Blood Glucose Check, Bedside [RC] ONETIME Care 04/08/21 08:00 Active Cardiac Monitoring [RC] CONTINUOUS Care 04/08/21 08:35 Active EKG Documentation Completion [RC] STAT Care 04/08/21 05:16 Active Intake and Output [RC] QSHIFT Care 04/08/21 08:35 Active Oxygen Therapy [RC] ASDIRECTED Care 04/08/21 05:17 Active Peripheral IV Care [RC] . DIRECTED Care 04/08/21 05:18 Active Pulse Oximetry [RC] CONTINUOUS Care 04/08/21 08:35 Active RT Aerosol Therapy [RC] ASDIRECTED Care 04/08/21 05:24 Active VTE/DVT Education [RC] PER UNIT ROUTINE Care 04/08/21 08:33 Active Vital Signs [RC] Q1H Care 04/08/21 08:33 Active Consult to Customer Operations Associate [CONS] Routine Cons 04/08/21 08:38 Active OT Evaluation and Treatment [CONS] Routine Cons 04/08/21 08:38 Active PT Evaluation and Treatment [CONS] Routine Cons 04/08/21 08:38 Active Nothing per Oral Now Diet [DIET] Diet 04/08/21 Lunch Active CBC WITH AUTO DIFF [HEME] DAILY Lab 04/09/21 08:45 Ordered CBC WITH AUTO DIFF [HEME] DAILY Lab 04/10/21 08:45 Ordered CBC WITH AUTO DIFF [HEME] DAILY Lab 04/11/21 08:45 Ordered COMPREHENSIVE METABOLIC PN,CMP [CHEM] DAILY Lab 04/09/21 08:45 Ordered COMPREHENSIVE METABOLIC PN,CMP [CHEM] DAILY Lab 04/10/21 08:45 Ordered COMPREHENSIVE METABOLIC PN,CMP [CHEM] DAILY Lab 04/11/21 08:45 Ordered MAGNESIUM [CHEM] DAILY Lab 04/09/21 08:45 Ordered MAGNESIUM [CHEM] DAILY Lab 04/10/21 08:45 Ordered MAGNESIUM [CHEM] DAILY Lab 04/11/21 08:45 Ordered PACKED CELLS [RED BLOOD CELLS LP] [BBK] Stat Lab 04/08/21 05:15 Results TYPE AND SCREEN [BBK] Stat Lab 04/08/21 05:15 Results Acetaminophen [TylenoL] Med 04/08/21 08:33 Active 650 mg PO Q4H PRN Albuterol/Ipratropium [DuoNeb 3.0-0.5 MG/3 ML] Med 04/08/21 10:00 Active 3 ml NEB Q4H Ascorbic Acid [Vitamin C] Med 04/09/21 09:00 Active 500 mg PO DAILY Docusate Sodium [Colace] Med 04/08/21 08:33 Active 100 mg PO BID PRN Furosemide [Lasix] Med 04/08/21 09:00 Active 40 mg IVPUSH BID Heparin Sodium Med 04/08/21 08:45 Active 5,000 units SUBCUT Q8H Iron Polysaccharides Complex [Ferrex 150] Med 04/09/21 09:00 Active 150 mg PO DAILY Mirtazapine [Remeron] Med 04/08/21 21:00 Active 30 mg PO BEDTIME Ondansetron [Zofran] Med 04/08/21 08:33 Active 4 mg IV Q4H PRN Pantoprazole [ProTONIX IV] Med 04/08/21 09:00 Active 40 mg IV Q12HR Rosuvastatin [Crestor] Med 04/08/21 21:00 Active 20 mg PO BEDTIME Sodium Chloride 0.9% [Normal Saline] 250 ml Med 04/08/21 06:45 Active IV ASDIRECTED Sodium Chloride 0.9% [Saline Flush] Med 04/08/21 05:18 Active 10 ml FLUSH ASDIRECTED PRN carvediloL [Coreg] Med 04/08/21 21:00 Active 12.5 mg PO BID hydrOXYzine HCL [Atarax] Med 04/08/21 09:17 Active 25 mg PO Q8H PRN traMADol [Ultram] Med 04/08/21 08:41 Active 50 mg PO Q6H PRN traZODone Med 04/08/21 21:00 Active 50 mg PO BEDTIME Peripheral IV Insertion Adult [OM.PC] Stat Oth 04/08/21 05:18 Ordered Sequential Compression Device [OM.PC] Per Unit Routine Oth 04/08/21 08:36 Ordered Transfuse PRBC [Transfuse Red Blood Cells] [COMM] Timed Oth 04/08/21 06:18 Ordered Resuscitation Status Routine Resus Stat 04/08/21 08:33 Ordered Medication Orders Acetaminophen (Acetaminophen 325 Mg Tab) 650 mg PO Q4H PRN PRN Reason: Pain (Mild 1-3)/fever Albuterol/Ipratropium (Albuterol/Ipratropium 3.0-0.5 Mg/3 Ml Neb Soln) 3 ml NEB Q4H [facility] Last Admin: 04/08/21 10:02 Dose: 3 ml Documented by: JONY Ascorbic Acid (Ascorbic Acid 500 Mg Tab) 500 mg PO DAILY [facility] Carvedilol (Carvedilol 12.5 Mg Tab) 12.5 mg PO BID BOBBI Docusate Sodium (Docusate Sodium 100 Mg Cap) 100 mg PO BID PRN PRN Reason: Constipation Furosemide (Furosemide 40 Mg/4 Ml Vial) 40 mg IVPUSH BID [facility] Last Admin: 04/08/21 10:51 Dose: 40 mg Documented by: APRYL Heparin Sodium (Porcine) (Heparin Sodium 5,000 Units/Ml Vial) 5,000 units SUBCUT Q8H [facility] Last Admin: 04/08/21 10:54 Dose: 5,000 units Documented by: APRYL Hydroxyzine HCl (Hydroxyzine Hcl 25 Mg Tab) 25 mg PO Q8H PRN PRN Reason: Anxiety Sodium Chloride (Normal Saline) 250 mls @ 10 mls/hr IV ASDIRECTED [facility] Last Admin: 04/08/21 09:40 Dose: 10 mls/hr Documented by: NEEL Mirtazapine (Mirtazapine 30 Mg Tab) 30 mg PO BEDTIME [facility] Ondansetron HCl (Ondansetron 4 Mg/2 Ml Sdv) 4 mg IV Q4H PRN PRN Reason: Nausea/Vomiting Pantoprazole Sodium (Pantoprazole 40 Mg Vial) 40 mg IV Q12HR [facility] Last Admin: 04/08/21 10:52 Dose: 40 mg Documented by: APRYL Polysaccharide Iron Complex (Iron Polysaccharides Complex 150 Mg Cap) 150 mg PO DAILY [facility] Rosuvastatin Calcium (Rosuvastatin 10 Mg Tab) 20 mg PO BEDTIME [facility] Sodium Chloride (Sodium Chloride 0.9% 10 Ml Syringe) 10 ml FLUSH ASDIRECTED PRN PRN Reason: Keep Vein Open Last Admin: 04/08/21 05:28 Dose: 10 ml Documented by: ALVARADO Tramadol HCl (Tramadol 50 Mg Tab) 50 mg PO Q6H PRN PRN Reason: Pain Trazodone HCl (Trazodone 50 Mg Tab) 50 mg PO BEDTIME BOBBI Assessment/Plan Comment:: 70-year-old male with a past medical history as mentioned above who presents to the [facility] emergency department due to being noticeably short of breath. 1. Acute on chronic hypercarbic and hypoxic respiratory failure Exacerbated by Ativan and ptotic administration. Patient requiring urgent BiPAP. Continue rate of 18, IPAP of 16 and EPAP of 6. Repeat ABG as necessary with titrating of settings. Patient is a DNR/DNI. Awaiting for medications to wear off and metabolize. O2 saturations to remain target goal of 88 to 94%. Likely also exacerbated by acute on chronic congestive heart failure exacerbation. Patient to receive aggressive diuresis with loop diuretics. 2. Acute on chronic congestive heart failure. Unknown ejection fraction. Try to obtain prior echocardiographic studies. Lasix 40 mg IV twice daily for now with titration as necessary. Patient is on chronic oxygen. Continue BiPAP for now considering problem #1. Other diuretics as necessary based upon the need for blood products. 3. Chronic anemia. No evidence of bleeding. Hemoglobin and hematocrit values likely secondary to dilutional effect considering his volume overload. Patient has been transfused 1 unit according to ER orders this morning. Original order was for 3 units. Those have been held for now until volume status can be reassessed and CBC can be reevaluated post transfusion. 4. Oxygen dependent COPD. Plan as above. Respiratory therapy consult. Incentive spirometry once patient is awake. Continue DuoNebs scheduled and on a as needed basis. 5. History of coronary artery disease. Continue home cardiac medications at regular dose with the exception of increased diuretics. 6. Failure to thrive. Dietary consultation. Significant weight loss and cachexia. Albumin 1.7. Hospice consultation requested. All other medical comorbidities are stable and nonactive conditions. Continue home medications at regular dose once mental status improves. Status: DNR/DNI. DVT prophylaxis with heparin subcu.
[2021-04-08] MEDS: traMADol 50 MG Tab PO PRN ×2 (12:21→20:07)
[2021-04-08] MEDS: Mirtazapine 30 MG Tab PO SCH (20:05)
[2021-04-08] MEDS: guaiFENesin 600 MG Tab.ER PO SCH (20:05)
[2021-04-08] MEDS: Rosuvastatin 10 MG Tab PO SCH (20:05)
[2021-04-08] MEDS: Haloperidol 1 MG Tab PO SCH (20:06)
[2021-04-08] MEDS: Carvedilol 12.5 MG Tab PO SCH (20:06)
[2021-04-08] MEDS ORDERED: traZODone 50 MG Tab PO SCH (21:00)
[2021-04-09] MEDS: Heparin Sodium 5,000 Units/ML Vial SUBCUT SCH ×3 (00:30→16:17)
[2021-04-09] MEDS: Albuterol/Ipratropium 3.0-0.5 MG/3 ML Neb Soln NEB SCH ×7 (01:45→21:32)
[2021-04-09] MEDS: traMADol 50 MG Tab PO PRN ×3 (03:36→14:36)
[2021-04-09] MEDS ORDERED: Magnesium Sulfate/Water 2 GM in Premix Bag 1 BAG IV ONE (08:51)
[2021-04-09] MEDS: Pantoprazole 40 MG Vial IV SCH ×4 (09:17→21:31)
[2021-04-09] MEDS: Furosemide 40 MG Tab PO SCH (09:17)
[2021-04-09] MEDS: Carvedilol 12.5 MG Tab PO SCH ×2 (09:17→21:28)
[2021-04-09] MEDS: guaiFENesin 600 MG Tab.ER PO SCH ×2 (09:17→21:30)
[2021-04-09] MEDS: Ascorbic Acid 500 MG Tab PO SCH (09:20)
[2021-04-09] MEDS: Iron Polysaccharides Complex 150 MG Cap PO SCH (09:20)
[2021-04-09] MEDS ORDERED: Haloperidol Lactate 5 MG/ML SDV IM ONE (20:50)
[2021-04-09] MEDS ORDERED: Haloperidol Lactate 5 MG/ML SDV IVPUSH ONE (21:08)
[2021-04-09] MEDS: Mirtazapine 30 MG Tab PO SCH (21:30)
[2021-04-09] MEDS: Haloperidol 1 MG Tab PO SCH (21:30)
[2021-04-09] MEDS: Rosuvastatin 10 MG Tab PO SCH (21:30)
[2021-04-10] MEDS: Heparin Sodium 5,000 Units/ML Vial SUBCUT SCH ×3 (01:00→17:18)
[2021-04-10] MEDS: Albuterol/Ipratropium 3.0-0.5 MG/3 ML Neb Soln NEB SCH ×6 (02:04→21:02)
[2021-04-10] MEDS: traMADol 50 MG Tab PO PRN ×2 (06:17→10:01)
[2021-04-10] MEDS: hydrOXYzine HCl 25 MG Tab PO PRN (06:17)
[2021-04-10] MEDS: Pantoprazole 40 MG Vial IV SCH ×2 (08:11→20:18)
[2021-04-10] MEDS: Furosemide 40 MG Tab PO SCH (08:16)
[2021-04-10] MEDS: Carvedilol 12.5 MG Tab PO SCH ×2 (08:16→20:16)
[2021-04-10] MEDS: Ascorbic Acid 500 MG Tab PO SCH (08:17)
[2021-04-10] MEDS: guaiFENesin 600 MG Tab.ER PO SCH ×2 (08:17→20:12)
[2021-04-10] MEDS: Iron Polysaccharides Complex 150 MG Cap PO SCH (08:17)
[2021-04-10] MEDS ORDERED: QUEtiapine 25 MG Tab PO SCH (09:00)
[2021-04-10] MEDS ORDERED: Sodium Polystyrene Sulfonate 15 GM/60 ML Susp 60 ML Bot PO ONE (09:44)
[2021-04-10] MEDS ORDERED: Sodium Chloride 0.9% 1,000 ML IV SCH (09:45)
[2021-04-10] MEDS ORDERED: risperiDONE 0.5 MG Tab PO SCH (10:45)
--- NOTE | 2021-04-10 11:51 | PCM.SN.2 ---
- Free Text/Narrative Note: Called to bedside at approximately 11:15 AM due to acute mental status change and respiratory status change. According to nursing report he had been continuously yelling for the nurse and pressing the call light button incessantly all morning, after being rounded on by myself and the nursing team. He had spoken on the phone to his son as well as another family member. He was still thinking that medical staff was trying to kill him, but that he actually wanted to as well. Patient took all medications as recommended this morning. Mild dose of Seroquel 25 mg was added to this morning's regimen. This was given around 8 AM. This did not have any sedating effect on him. Patient has not had any other mind altering or pain medications administered. The patient was found obtunded after approximately a 10-minute while the nurse was briefly out of the room. The patient was not responding. Eyelids were open. No purposeful movements. This was when I was called. The patient was immediately placed on BiPAP within 3 minutes with settings of 16/6, FiO2 of 100% and a rate of 20. Within 5 minutes the patient was able to open his eyes to command and answer yes or no questions by shaking or nodding his head. Urgent ABG showed PCO2 of 118, pH of 7.15, with adequate oxygenation. A call was placed to his son Trevor regarding his acute respiratory decompensation and hypercarbia. It has been concluded that the patient will continue to undergo emergent BiPAP this 1 and only time for rescue, according to the son's wishes. The patient is to remain DNR/DNI. If the patient has another acute respiratory decompensation, the medical staff as well as myself have been instructed to pursue comfort measures only status immediately. This comes directly from his son Trevor. Morphine and Ativan are to be given. This is with the expectation and the knowledge that he will likely pass away within the near future after CONTRACT AGENT status commences. Shortly before this dictation, the patient was awake enough to answer multiple questions. He is able to perform purposeful movements and follow all commands. Upon asking him whether or not he wants to , he shakes his head yes. This plan has been discussed with his primary nurse, Deep. She was present while I was on the phone with the patient's son. She agrees with plan. Dr. John Paul Leroy Jr., DO.
[2021-04-10] MEDS: Rosuvastatin 10 MG Tab PO SCH ×2 (20:12→20:13)
[2021-04-10] MEDS: Mirtazapine 30 MG Tab PO SCH (22:26)
[2021-04-11] MEDS: Heparin Sodium 5,000 Units/ML Vial SUBCUT SCH ×3 (00:09→16:23)
[2021-04-11] MEDS: Albuterol/Ipratropium 3.0-0.5 MG/3 ML Neb Soln NEB SCH ×6 (01:14→21:52)
[2021-04-11] MEDS ORDERED: Sodium Polystyrene Sulfonate 15 GM/60 ML Susp 60 ML Bot PO ONE (07:22)
[2021-04-11] MEDS: Carvedilol 12.5 MG Tab PO SCH ×2 (08:07→20:06)
[2021-04-11] MEDS: guaiFENesin 600 MG Tab.ER PO SCH ×2 (08:07→20:05)
[2021-04-11] MEDS: Pantoprazole 40 MG Vial IV SCH ×2 (08:07→20:07)
[2021-04-11] MEDS: Iron Polysaccharides Complex 150 MG Cap PO SCH (08:08)
[2021-04-11] MEDS: Ascorbic Acid 500 MG Tab PO SCH (08:08)
[2021-04-11] MEDS: Rosuvastatin 10 MG Tab PO SCH (20:05)
[2021-04-11] MEDS: hydrOXYzine HCl 25 MG Tab PO PRN (20:06)
[2021-04-11] MEDS: Mirtazapine 30 MG Tab PO SCH (21:43)
[2021-04-12] MEDS: Heparin Sodium 5,000 Units/ML Vial SUBCUT SCH ×3 (00:02→15:46)
[2021-04-12] MEDS: Albuterol/Ipratropium 3.0-0.5 MG/3 ML Neb Soln NEB SCH ×6 (02:06→21:12)
[2021-04-12] MEDS ORDERED: Budesonide 0.5 MG/2 ML Neb Susp NEB SCH (06:45)
[2021-04-12] MEDS: Carvedilol 12.5 MG Tab PO SCH ×2 (07:59→20:27)
[2021-04-12] MEDS: Ascorbic Acid 500 MG Tab PO SCH (07:59)
[2021-04-12] MEDS: guaiFENesin 600 MG Tab.ER PO SCH ×2 (08:01→20:26)
[2021-04-12] MEDS: Iron Polysaccharides Complex 150 MG Cap PO SCH (08:01)
[2021-04-12] MEDS: Pantoprazole 40 MG Vial IV SCH ×2 (08:02→20:28)
[2021-04-12] MEDS: Budesonide 0.5 MG/2 ML Neb Susp NEB SCH ×2 (09:32→21:12)
--- NOTE | 2021-04-12 11:35 | PCM.SN.2 ---
- Free Text/Narrative Note: 96 hour note: Patient remains in the hospital past 96 hours due to difficult disposition as he now requires nocturnal BiPAP, and there are not very many facilities to discharge to, assuming the patient agrees to be transferred to that facility. Otherwise medically cleared at current time. -John Paul Leroy Jr., DO
[2021-04-12] MEDS: Rosuvastatin 10 MG Tab PO SCH (20:26)
[2021-04-12] MEDS: Mirtazapine 30 MG Tab PO SCH (20:34)
[2021-04-13] MEDS: Heparin Sodium 5,000 Units/ML Vial SUBCUT SCH (01:04)
[2021-04-13] MEDS: Albuterol/Ipratropium 3.0-0.5 MG/3 ML Neb Soln NEB SCH ×6 (01:41→21:13)
[2021-04-13] MEDS: Budesonide 0.5 MG/2 ML Neb Susp NEB SCH ×2 (08:05→21:13)
[2021-04-13] MEDS: Ascorbic Acid 500 MG Tab PO SCH (08:52)
[2021-04-13] MEDS: Carvedilol 12.5 MG Tab PO SCH ×2 (08:52→20:10)
[2021-04-13] MEDS: Iron Polysaccharides Complex 150 MG Cap PO SCH (08:52)
[2021-04-13] MEDS: guaiFENesin 600 MG Tab.ER PO SCH ×2 (08:53→20:12)
[2021-04-13] MEDS: Pantoprazole 40 MG Vial IV SCH ×2 (08:53→20:13)
--- NOTE | 2021-04-13 10:42 | PCM.CONS ---
H&P History of Present Illness - General Date of Service: 04/13/21 Admit Problem/Dx: Admission Diagnosis/Problem Admission Diagnosis/Problem Acute on chronic respiratory hypoxic and hypercarbic respiratory failure, acute on chronic congestive heart failure, COPD on home 4 L O2 Source of Information: Patient, Provider History Limitations: Reports: Altered Mental Status - History of Present Illness Initial Comments - Free Text/Narative: Mr. Lozano is a 70 yo man admitted four days ago with COPD exacerbation. He is in very poor health, with CHF, CAD s/p CABG in 2011, thoracic aortic aneurysm measuring over 7 cm, and CKD with baseline creatinine of about 2.5 g/dL. His albumin is 1.9. General surgery is consulted for episode of melena early this morning. The patient has only been on subcutaneous heparin for DVT ppx since admission and has been taking a PPI. Prior to admission he was only taking aspirin; no other antiplatelet or anticoagulation medication. He has never had an upper or lower endoscopy. He has no symptoms of pain or abdominal discomfort. Hgb is 8.0 g/dL down only slightly from admission Hgb four days ago of 8.5 g/dL. The patient seems confused, and during admission has occasionally become obtunded as a result of impending respiratory failure, but he has made it clear in the past with family and providers that he is DNR/DNI. Onset of Symptoms: Reports: Today Middle Back Pain Score (Numeric/FACES): 0 - Related Data Allergies/Adverse Reactions: Allergies Allergy/AdvReac Type Severity Reaction Status Date / Time No Known Allergies Allergy Verified 04/08/21 05:25 Home Medications: Home Meds Albuterol Sulfate [Proair Respiclick] 2 puff INH Q6H PRN 11/11/19 [History] Budesonide/Formoterol [Symbicort 160-4.5 MCG] 2 puff INH BID 11/11/19 [History] Tiotropium [Spiriva HandiHaler] 18 mcg INH DAILY 11/11/19 [History] Acetaminophen [Tylenol] 650 mg PO Q6H PRN 04/08/21 [History] Ascorbic Acid [Vitamin C] 500 mg PO DAILY 04/08/21 [History] Furosemide [Lasix] 40 mg PO ASDIRECTED 04/08/21 [History] Iron Polysaccharide Complex [Iferex 150] 150 mg PO DAILY 04/08/21 [History] Mirtazapine 30 mg PO BEDTIME 04/08/21 [History] Rosuvastatin [Crestor] 20 mg PO BEDTIME 04/08/21 [History] carvediloL [Carvedilol] 12.5 mg PO BID 04/08/21 [History] hydrOXYzine HCL [Hydroxyzine HCl] 25 mg PO Q8H PRN 04/08/21 [History] traMADol [Ultram] 50 mg PO Q6H PRN 04/08/21 [History] traZODone 50 mg PO BEDTIME 04/08/21 [History] Past Medical History Cardiovascular History: Reports: Bypass (A bypass done in 2012. 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 Veins for bypass were harvested from his left lower extremity), Cardiomyopathy, Heart Failure, Hypertension, [place], Pulmonary Hypertension, PVD, SOB on Exertion (Suspect but not proven), Other (See Below) (No one thoracic aortic aneurysm.) Respiratory History: Reports: Bronchitis, Recurrent, COPD (End-stage COPD from cigarette smoking.), SOB, Other (See Below) (Oxygen dependent usually 4 L/min at all times by nasal prongs due to COPD. Often the night apparently he will place his prongs in his mouth to obtain oxygen. Feels it plugs up his nose.). Denies: Sleep Apnea Gastrointestinal History: Reports: Other (See Below) (Reports stool incontinence. Unclear if this is because he simply is not physically able to get to the bathroom in time or has no warning that he is going to have a bowel movement. He does not believe there is any blood in his stool.) Genitourinary History: Reports: BPH Musculoskeletal History: Reports: Back Pain, Chronic Psychiatric History: Reports: Antisocial Behaviors, Anxiety, Depression, PTSD Social & Family History - Family History Family Medical History: No Pertinent Family History - Tobacco Use Tobacco Use Status *Q: Former Tobacco User Used Tobacco, but Quit: Yes Month/Year Tobacco Last Used: unkown - Caffeine Use Caffeine Use: Reports: None - Recreational Drug Use Recreational Drug Use: No - Living Situation & Occupation Living situation: Reports: Single Occupation: Unemployed H&P Review of Systems - Review of Systems: Review Of Systems: See Below General: Reports: No Symptoms HEENT: Reports: No Symptoms Pulmonary: Reports: Shortness of Breath Cardiovascular: Reports: No Symptoms Gastrointestinal: Reports: Melena Genitourinary: Reports: No Symptoms Musculoskeletal: Reports: No Symptoms Skin: Reports: No Symptoms Psychiatric: Reports: Confusion Neurological: Reports: No Symptoms Hematologic/Lymphatic: Reports: Anemia Immunologic: Reports: No Symptoms Exam - Exam Exam: See Below - Vital Signs Vital Signs: Last Vital Signs Temp 36.8 C 04/13/21 08:00 Pulse 89 04/13/21 08:52 Resp 17 04/13/21 08:00 BP 134/79 04/13/21 08:52 Pulse Ox 92 L 04/13/21 08:00 Weight: 76.113 kg - Exam Quality Assessment: Supplemental Oxygen General: Alert, Cooperative HEENT: Conjunctiva Clear Neck: Supple, Trachea Midline Lungs: Other (moderate dyspnea at rest) Cardiovascular: Regular Rate, Regular Rhythm GI/Abdominal Exam: Other (mild distention, soft, nontender, no palpable mass- adult diaper is clean but there is a distinct odor of GI bleeding in the room.) (Male) Exam: Other (edematous genitals) Skin: Warm, Dry Psychiatric: Other (seems confused, changes mind about interventions mid- conversation) - Patient Data Lab Results Last 24 hrs: Laboratory Results - last 24 hr 04/13/21 04/13/21 Range/Units 07:10 07:10 WBC 7.02 (4.23-9.07) K/mm3 RBC 3.28 L (4.63-6.08) M/mm3 Hgb 8.0 L (13.7-17.5) gm/dl Hct 28.6 L (40.1-51.0) % MCV 87.2 (79.0-92.2) fl MCH 24.4 L (25.7-32.2) pg MCHC 28.0 L (32.2-35.5) g/dl RDW Std Deviation 57.5 H (35.1-43.9) fL Plt Count 418 H (163-337) K/mm3 MPV 9.0 L (9.4-12.3) fl Neut % (Auto) 79.5 H (34.0-67.9) % Lymph % (Auto) 14.4 L (21.8-53.1) % [place] % (Auto) 5.7 (5.3-12.2) % Eos % (Auto) 0 L (0.8-7.0) Baso % (Auto) 0.1 (0.1-1.2) % Neut # (Auto) 5.58 H (1.78-5.38) K/mm3 Lymph # (Auto) 1.01 L (1.32-3.57) K/mm3 [place] # (Auto) 0.40 (0.30-0.82) K/mm3 Eos # (Auto) 0.00 L (0.04-0.54) K/mm3 Baso # (Auto) 0.01 (0.01-0.08) K/mm3 Manual Slide Review Abnormal smear Sodium 139 (136-145) mEq/L Potassium 4.8 (3.5-5.1) mEq/L Chloride 96 L (98-107) mEq/L Carbon Dioxide 41 H* (21-32) mEq/L Anion Gap 6.8 (5-15) BUN 83 H (7-18) mg/dL Creatinine 2.4 H (0.7-1.3) mg/dL Est Cr Clr Drug Dosing 31.71 mL/min Estimated GFR (MDRD) 27 (>60) mL/min BUN/Creatinine Ratio 34.6 H (14-18) Glucose 90 (70-99) mg/dL Calcium 8.2 L (8.5-10.1) mg/dL Result Diagrams: 04/13/21 07:10 04/13/21 07:10 Sepsis Event Note - Evaluation Sepsis Screening Result: No Definite Risk - Focused Exam Vital Signs: Vital Signs Temp Pulse Pulse Resp BP BP Pulse Ox 04/13/21 08:52 89 134/79 04/13/21 08:00 36.8 C 95 17 134/79 92 L 04/13/21 06:35 89 20 121/80 94 L 04/13/21 05:47 04/13/21 04:00 36.1 C 17 138/83 97 04/13/21 01:41 04/13/21 00:00 36.3 C 97 22 H 140/81 99 Pulse Ox 04/13/21 08:52 04/13/21 08:00 04/13/21 06:35 04/13/21 05:47 94 L 04/13/21 04:00 04/13/21 01:41 92 L 04/13/21 00:00 Consult PN Assessment/Plan Procedures: Procedures AIRWAY INHALATION TREATMENT (11/11/19) ASSAY OF MAGNESIUM (11/11/19) ASSAY OF NATRIURETIC PEPTIDE (11/11/19) ASSAY OF PROTEIN URINE (11/11/19) ASSAY OF SERUM ALBUMIN (11/11/19) ASSAY OF TROPONIN QUANT (11/11/19) ASSAY OF URINE CREATININE (11/11/19) ASSAY OF URINE OSMOLALITY (11/11/19) ASSAY OF URINE SODIUM (11/11/19) ASSAY OF URINE/UREA-N (11/11/19) C DIFF AMPLIFIED PROBE (04/01/21) C-REACTIVE PROTEIN (11/11/19) CHYLMD PNEUM DNA AMP PROBE (11/11/19) COMPLETE CBC W/AUTO DIFF WBC (11/11/19) COMPREHEN METABOLIC PANEL (11/11/19) CREATINE MB FRACTION (11/11/19) DETECT AGENT NOS DNA AMP (11/11/19) ELECTROCARDIOGRAM TRACING (11/11/19) EMERGENCY DEPT VISIT (11/11/19) HEMATOLOGY PROCEDURE (11/11/19) M.PNEUMON DNA AMP PROBE (11/11/19) MEASURE BLOOD OXYGEN LEVEL (11/11/19) MEASURE BLOOD OXYGEN LEVEL (11/11/19) METABOLIC PANEL TOTAL CA (11/11/19) OT EVAL LOW COMPLEX 30 MIN (11/11/19) PROTHROMBIN TIME (11/11/19) PT EVAL MOD COMPLEX 30 MIN (11/11/19) RESP VIRUS 6-11 TARGETS (11/11/19) ROUTINE VENIPUNCTURE (11/11/19) SELF CARE MNGMENT TRAINING (11/11/19) SMEAR GRAM STAIN (11/11/19) THER/PROPH/DIAG INJ IV PUSH (11/11/19) THERAPEUTIC ACTIVITIES (11/11/19) THROMBOPLASTIN TIME PARTIAL (11/11/19) TTE W/DOPPLER COMPLETE (11/11/19) URINALYSIS AUTO W/SCOPE (11/11/19) US EXAM ABDO BACK WALL COMP (11/11/19) X-RAY EXAM CHEST 1 VIEW (11/11/19) Problem List Initiated/Reviewed/Updated: Yes Plan: Discussed with Dr. Reis, patient is very high risk for any invasive procedure given tenuous respiratory status and significant aortic aneurysm, in addition to other chronic comorbidities. Although it would be helpful to get a CT angiogram to make sure this episode of melena is not heralding an aortoenteric fistula, the patient has evidence of chronic advanced renal dysfunction. I also worry about the high risk of causing injury or triggering acute respiratory failure with any endoscopic procedure. I discussed the patient with the anesthesia team here and they feel that, if intervention is needed and the patient consents to treatment, this would be best done at a center with additional resources and subspecialty care. Plan to recheck Hemoglobin this afternoon. Transfuse as needed. Will discuss results with patient and clarify goals of care at that time. If all are in agreement to go ahead with diagnostic/therapeutic endoscopy we can arrange for transfer to higher level of care later today. Requesting Provider: Dr. Reis Date Consult Requested: 04/13/21 Reason for Consult: GI bleed Patient History Reviewed: Yes Admission H&P Reviewed: Yes Notified Requestor: Yes Time Spent (in minutes): 31
[2021-04-13] MEDS: Rosuvastatin 10 MG Tab PO SCH (20:11)
[2021-04-13] MEDS: Mirtazapine 30 MG Tab PO SCH (20:12)
[2021-04-13] MEDS: traMADol 50 MG Tab PO PRN (20:12)
[2021-04-14] MEDS: Albuterol/Ipratropium 3.0-0.5 MG/3 ML Neb Soln NEB SCH ×4 (01:00→13:51)
--- NOTE | 2021-04-14 05:52 | CONS ---
CONSULTING PHYSICIAN: Maged Ewing MD DATE OF CONSULTATION: 04/08/2021 This is a 60-minute inpatient clinical event. Site where the services are provided are [facility] in [place], [place]. Site where the services are provided from, our offices in [place], [place]. Length of service for this 60-minute inpatient telemedicine event is 60 minutes. IDENTIFICATION: The patient is a 70-year-old male who was is admitted to the inpatient MICU at [facility] (formerly [facility] in [place], [place] on 04/08/2021. He is seen for psychiatric consultation per the request of staff attending Dr. Mendiola and his treatment team. CHIEF COMPLAINT: "Pretty fucking scary dude. Right out of a horror movie." HISTORY OF PRESENT ILLNESS: The patient is a 70-year-old male who was admitted from a long term secondary to issues with paranoia and visual hallucinations. Staff is reporting that the patient had been claiming that the nurses at the long term were trying to kill him after he was recently admitted to the facility. The patient is stating that he has been struggling with visual hallucinations even since admission to the hospital, noting "I've already hallucinated a couple of times." The patient also states that he cannot sleep and states he uses marijuana on the outside "as a sleep aid." Part of the problem is that he has been not able to use the marijuana since he was placed in the nursing facility. He does state "I got a good memory," but the main issue is hallucinations. He states that if he can go home and get sleep, he will be doing better too and get rid of the hallucinations. He states he gets a lot of flashbacks from when he was back in [place]. He states that he has a lot of mixed emotions of being a [place] . He states he has seen combat and states "I'm a vet, but I'm really not," but refuses to elaborate. He is denying any suicidal or homicidal, but he is open to trying something that will help him think more clearly and take care of hallucinations. MEDICATIONS: At the time of admission: 1. Tramadol. 2. Remeron 30 mg at bedtime. 3. Trazodone 50 mg at bedtime. 4. Hydroxyzine p.r.n. ALLERGIES: No known drug allergies. PAST MEDICAL HISTORY: 1. End-stage CHF. 2. History of aortic aneurysm. 3. History of back pain secondary to aortic aneurysm for which the patient is being given tramadol. 4. History of incontinence. REVIEW OF SYSTEMS: Aside from cardiovascular, musculoskeletal, and GI, all other major organ systems are negative at this point in time for acute difficulties or complications. FAMILY PSYCHIATRIC AND CD HISTORY: The patient's sister has a history of dyslexia and bipolar affective disease. The patient states his mother had a history of benzodiazepine addiction. PAST PSYCHIATRIC AND CD HISTORY: The patient is not reporting any previous psychiatric hospitalizations or chemical dependency treatments. He states he has been a heavy cannabis user for pretty much his whole life. He does have history of PTSD, anxiety, and dyslexia. He has been on psychiatric medications in the past, but he cannot recollect the names of the medications. SOCIAL HISTORY: The patient was born in [place], [place], raised in [place], [place]. He has 2 half-sisters, 1 half-brother, 2 brothers, and 1 twin sister. The patient's parents when the patient was 12 years of age. He states his father was involved in construction. Mother was a homemaker. The patient has been twice. He had been living in [place], [place] for the past number of years after living over in [place]. He was most recently placed in the [facility] in [facility]. He has one son who is 40 years of age who lives down in [place]. He states that he was in the and is a [place] War . MENTAL STATUS EXAM: Patient is a 70-year-old white male in no apparent distress. Speech is of regular rate and rhythm. The patient is cognitively oriented x3. Psychomotor activity is within normal limits. There are no abnormal motor movements or tics. Gait and station are not observed as patient is lying in bed during the course of the interview. Mood is tired and worried. Affect is consistent with stated mood, but also a little bit manic. There is no acute suicidal or homicidal ideation, but thought content is significant for hallucinations. Thought processes are accelerated, though the patient is able to be redirected as needed. There are no acute manic symptoms or loose associations evident. Judgment and insight appear unimpaired at this point in time. Motivation for help is fair. VITAL SIGNS: 101/62, 89, 15, 98.6 degrees. IMPRESSION: Mallory I: 1. Cannabis dependence, F12.20. 2. Posttraumatic stress disorder, F43.10. 3. Psychosis, not otherwise specified, F29. 4. Depression, not otherwise specified. 5. Rule out major depressive disorder. 6. Rule out bipolar affective disease, mixed type skies. 7. Rule out schizoaffective disorder. Mallory II: No diagnosis at this time. Mallory III: 1. End states congestive heart failure. 2. History of aortic aneurysm. 3. History of back pain. 4. History of incontinence. Mallory IV: Severe. Mallory V: 60. PLAN: 1. Discontinue trazodone. 2. Begin trial of Haldol 2 mg at bedtime for clarity of thought, elimination of any psychotic or paranoid symptoms as well as for mood stability. 3. Continue Remeron 30 mg at bedtime for symptoms of depression, sleep initiation, maintenance. 4. Other medications as dosed and prescribed by the patient's primary inpatient team. 5. Sobriety. 6. Recommend patient to follow up with Outpatient Psychiatry when patient is medically stabilized and discharged back to assess overall function and efficacy of his newly initiated and adjusted and continued psychiatric medication regimen. 7. We will continue to follow up with the patient on an as-needed basis while he remains on the inpatient MICU at [facility] ([facility] in [place], [place]. 8. We will follow up with the patient sooner if any complications in the interim. 9. Crisis plan is in place. MMODAL /[id number]
[2021-04-14] MEDS: guaiFENesin 600 MG Tab.ER PO SCH (09:13)
[2021-04-14] MEDS: Furosemide 40 MG Tab PO SCH ×2 (09:13→09:14)
[2021-04-14] MEDS: Iron Polysaccharides Complex 150 MG Cap PO SCH (09:13)
[2021-04-14] MEDS: Carvedilol 12.5 MG Tab PO SCH (09:14)
[2021-04-14] MEDS: Ascorbic Acid 500 MG Tab PO SCH (09:14)
[2021-04-14] MEDS: Pantoprazole 40 MG Vial IV SCH (09:15)
--- NOTE | 2021-04-14 10:06 | PCM.SN.2 ---
- Free Text/Narrative Note: S: Evaluated by psychiatry yesterday afternoon for hallucinations. No complaints this morning. No further episodes of melena. O: AF-VSS Awake and alert, no distress Abd distended, soft, nontender. Adult diaper with mushy brown stool. Digital rectal exam reveals stool in rectal vault with no palpable mass, no gross blood. Hgb: is up from 8.1 to 8.9 g/dL A: No evidence of active GI bleed since assessment yesterday. Mr. Lozano is in very poor health and is very high risk for endoscopic procedures with sedation. P: If concern persists and patient wishes, it may be safer to assess potential sources with noninvasive imaging including UGI series and barium enema as an outpatient.
[2021-04-14] MEDS: Budesonide 0.5 MG/2 ML Neb Susp NEB SCH (10:19)
--- NOTE | 2021-04-14 11:18 | PCM.DCSUM1 ---
Discharge Summary - Hospital Course Free Text/Narrative:: 1. Acute on chronic hypercarbic and hypoxic respiratory failure: Originally exacerbated by Ativan and Dilaudid administration. Status post requirement for emergent BiPAP for hypercarbia. Respiratory status now at his baseline. Only requiring 4 L of supplemental oxygen. CHF component also likely resolved at this time. He had another episode 04/10/21 as described in blank progress note within the electronic record. Status post emergent BiPAP yet again. Unknown trigger. Patient not given mind altering medications or pain relieving medications. As previously noted, if patient undergoes another episode of hypercarbic respiratory failure. Patient is to be made comfort measures according to his son Trevor as well as his sister. Tolerating nocturnal BiPAP, even though he is fidgety and wants to take it off often as he wants to drink. Nocturnal BiPAP to remain a standing order considering his high likelihood of retaining CO2. His psych issues which includes paranoia may be a result of continuously retaining carbon dioxide while sleeping, even before admission. This particular problem seems to be resolved with BiPAP. 2. Acute on chronic congestive heart failure. EF of 50%. Patient aggressively diuresed with 80 mg of IV Lasix in the emergency department and then received another 40 mg IV that night. Renal status now likely reflecting his normal values. His creatinine is typically above 2. Continue home Lasix regimen. 3. Chronic anemia with some acute GI blood loss this morning. Evidence of acute GI bleeding 04/13/21. Certainly a [place] stool. Otherwise hemodynamically stable. No recurrence since then. Repeat CBC x2 showed no idications of continued bleeding. Infact his Hb has increased to 8.9 g/dL morning of discharge. General surgery consulted for possible endoscopic evaluation. High risk considering baseline respiratory status and known large thoracic aortic aneurysm. No interventions were pursued as bleeding appeared to be self limiting. 4. Oxygen dependent COPD. Respiratory therapy consult. Incentive spirometry once patient is awake. Continued DuoNebs scheduled and on an as needed basis. Reinstated Pulmicort 04/12/21. BiPAP as discussed above. Reinstated home medications at time of discharge with added DuoNebs. 5. History of coronary artery disease. Continued home cardiac medications at regular dose with the exception of increased diuretics. 6. Failure to thrive. Dietary consultation. Significant weight loss and cachexia. Albumin 1.7. Hosp ice consultation requeste but patient refused for a second time. 7. Acute toxic encephalopathy. Secondary to Ativan and Dilaudid administration. Reversed with BiPAP. Mental status in now normal. Unknown trigger 04/10/21 that caused an acute hypercarbic encephalopathy. Reversed with BiPAP yet again. 8. Behavioral disturbance All mind altering medications have been discontinued as they have led to somnolence and episodes of hypercarbic respiratory failure requiring emergent BiPAP. Has not had any issues since nocturnal BiPAP has started. Psychiatry initially consulted. Haldol was added. Discontinue the next morning due to acute episode of hypercarbic respiratory failure, even though administration of this drug was administered at least 12 hours before hand. 9. Thoracic aortic aneurysm. Stable in appearance according to prior imaging. Cannot perform angiography due to renal status. Gómez has declined surgery. He is too high risk for such a vascular procedure anyway. HPI Initial Comments: mando is a 70-year-old male with a past medical history only known for what is noted below who was never been admitted to our facility before, who presented from a local [place] [facility] for being noticeably short of breath. Patient has a history of oxygen dependent COPD on 4 L at all times, coronary artery disease, prior VT, CABG, CKD 3. [place] to the ER report the patient was notably short of breath and in distress at a local [place] [facility]. He was brought in in the surg physician asst hours for evaluation. Patient was somewhat combative with emergency room personnel. Patient was given Ativan and Dilaudid so that he could be controlled in order to be evaluated. Patient was saturating well on 4 L of supplemental oxygen. Work-up was notable for acute on chronic congestive heart failure. The patient was not endorsing any specific complaints before receiving Ativan and Dilaudid. According to ER sources, the patient has been failing on an outpatient basis. At the [place] [facility], the patient has stated that they are killing him fast enough and/or he has the will to . His son who is the power of commercial real estate attorney lives in [facility]. He has not been able to be contacted. In the emergency department he was also noted to be anemic with a hemoglobin lower than previous values. Transfusion was ordered by the emergency room physician. He also received Lasix for his heart failure. The patient was referred to the internal medicine service for further work-up and management. 14 point review of systems cannot be reviewed with the patient due to his altered mental status with acute hypercarbic respiratory failure. CODE STATUS: DNR/DNI Middle Back Pain Score (Numeric/FACES): 9 - Related Data Allergies/Adverse Reactions: Allergies Allergy/AdvReac Type Severity Reaction Status Date / Time No Known Allergies Allergy Verified 04/08/21 05:25 Home Medications: Home Meds RX: Albuterol Sulfate [Proair Respiclick] 2 puff INH Q6H PRN 11/11/19 [History] RX: Budesonide/Formoterol [Symbicort 160-4.5 MCG] 2 puff INH BID 11/11/19 [History] RX: Tiotropium [Spiriva HandiHaler] 18 mcg INH DAILY 11/11/19 [History] Acetaminophen [Tylenol] 650 mg PO Q6H PRN 04/08/21 [History] Ascorbic Acid [Vitamin C] 500 mg PO DAILY 04/08/21 [History] Furosemide [Lasix] 40 mg PO ASDIRECTED 04/08/21 [History] Iron Polysaccharide Complex [Iferex 150] 150 mg PO DAILY 04/08/21 [History] RX: Mirtazapine 30 mg PO BEDTIME 04/08/21 [History] RX: carvediloL [Carvedilol] 12.5 mg PO BID 04/08/21 [History] RX: traZODone 50 mg PO BEDTIME 04/08/21 [History] Rosuvastatin [Crestor] 20 mg PO BEDTIME 04/08/21 [History] hydrOXYzine HCL [Hydroxyzine HCl] 25 mg PO Q8H PRN 04/08/21 [History] traMADol [Ultram] 50 mg PO Q6H PRN 04/08/21 [History] Past Medical History Cardiovascular History: Reports: Bypass (A bypass done in 2012. 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 Veins for bypass were harvested from his left lower extremity), Cardiomyopathy, Heart Failure, Hypertension, VT, Pulmonary Hypertension, PVD, SOB on Exertion (Suspect but not proven), Other (See Below) (No one thoracic aortic aneurysm.) Respiratory History: Reports: Bronchitis, Recurrent, COPD (End-stage COPD from cigarette smoking.), SOB, Other (See Below) (Oxygen dependent usually 4 L/min at all times by nasal prongs due to COPD. Often the night apparently he will place his prongs in his mouth to obtain oxygen. Feels it plugs up his nose.). Denies: Sleep Apnea Gastrointestinal History: Reports: Other (See Below) (Reports stool incontinence. Unclear if this is because he simply is not physically able to get to the bathroom in time or has no warning that he is going to have a bowel movement. He does not believe there is any blood in his stool.) Genitourinary History: Reports: BPH Musculoskeletal History: Reports: Back Pain, Chronic Psychiatric History: Reports: Antisocial Behaviors, Anxiety, Depression, PTSD Social & Family History - Family History Family Medical History: No Pertinent Family History - Tobacco Use Tobacco Use Status *Q: Former Tobacco User Used Tobacco, but Quit: Yes Month/Year Tobacco Last Used: unkown - Caffeine Use Caffeine Use: Reports: Coffee - Recreational Drug Use Recreational Drug Use: No - Living Situation & Occupation Living situation: Reports: Single Occupation: Unemployed H&P Review of Systems - Review of Systems: Review Of Systems: Unable To Obtain (Altered mental status secondary to hypercarbia.) Reason Not Obtained: Patient obtunded Exam - Exam Exam: See Below - Vital Signs Vital Signs: Last Vital Signs Temp 97.1 F 04/08/21 10:12 Pulse 74 04/08/21 10:12 Resp 17 04/08/21 10:12 BP 117/80 04/08/21 10:12 Pulse Ox 99 04/08/21 10:14 - Exam Quality Assessment: Supplemental Oxygen (via BiPAP) General: Obtunded HEENT: Conjunctiva Clear, Nares Patent, Pupils Equal Neck: Supple, Trachea Midline Lungs: Decreased Breath Sounds, Crackles. No: Rhonchi, Stridor, Wheezing Cardiovascular: Regular Rate, Normal S1, Normal S2 GI/Abdominal Exam: Normal Bowel Sounds, Soft, Non-Tender (Male) Exam: Hernia (Ventral) Extremities: Normal Inspection, No Pedal Edema Skin: Warm, Dry Neuro Extensive - Motor, Sensory, Reflexes: Normal Reflexes Psychiatric: Other (Can be aroused) - Discharge Data Discharge Date: 04/14/21 Discharge Disposition: DC/Tfer to SNF 03 Condition: Fair - Referral to Home Health Primary Care Physician: Delroy Gacria MD - Patient Summary/Data Consults: Consultations 04/08/21 08:38 Consult to News Broadcaster [CONS] Routine OT Evaluation and Treatment [CONS] Routine PT Evaluation and Treatment [CONS] Routine 04/08/21 11:25 Consult to Hospice [CONS] Routine 04/08/21 14:01 Consult to Physician [CONS] Routine - Patient Instructions Diet: Low Sodium Activity: As Tolerated Other/Special Instructions: Activity and diet are as above. Continue taking medications as instructed. Patient highly encouraged to spend time on BiPAP at night with settings of at least 12/6. This will help prevent CO2 retention as he becomes delusional, paranoid, and has hallucinations when his carbon dioxide increases. - Discharge Plan *PRESCRIPTION DRUG MONITORING PROGRAM REVIEWED*: Not Applicable *COPY OF PRESCRIPTION DRUG MONITORING REPORT IN PATIENT MERY: Not Applicable Prescriptions/Med Rec: Albuterol/Ipratropium [DuoNeb 3.0-0.5 MG/3 ML] 3 ml NEB Q4H PRN #30 neb PRN Reason: Shortness Of Breath Home Medications: Home Meds Albuterol Sulfate [Proair Respiclick] 2 puff INH Q6H PRN 11/11/19 [History] Budesonide/Formoterol [Symbicort 160-4.5 MCG] 2 puff INH BID 11/11/19 [History] Tiotropium [Spiriva HandiHaler] 18 mcg INH DAILY 11/11/19 [History] Acetaminophen [Tylenol] 650 mg PO Q6H PRN 04/08/21 [History] Ascorbic Acid [Vitamin C] 500 mg PO DAILY 04/08/21 [History] Furosemide [Lasix] 40 mg PO ASDIRECTED 04/08/21 [History] Iron Polysaccharide Complex [Iferex 150] 150 mg PO DAILY 04/08/21 [History] Mirtazapine 30 mg PO BEDTIME 04/08/21 [History] Rosuvastatin [Crestor] 20 mg PO BEDTIME 04/08/21 [History] carvediloL [Carvedilol] 12.5 mg PO BID 04/08/21 [History] hydrOXYzine HCL [Hydroxyzine HCl] 25 mg PO Q8H PRN 04/08/21 [History] traMADol [Ultram] 50 mg PO Q6H PRN 04/08/21 [History] Albuterol/Ipratropium [DuoNeb 3.0-0.5 MG/3 ML] 3 ml NEB Q4H PRN #30 neb 04/14/21 [Rx] Oxygen Flow Rate (L/min): 4 Maintain SpO2% greater than: 88 Patient Handouts: Chronic Obstructive Pulmonary Disease Exacerbation, [id number], Heart Failure, Self Care, [id number], Home Oxygen Use, Adult, Living With Heart Failure Forms: ED Department Discharge Referrals: Delroy Garcia MD [Primary Care Provider] - ([facility] staff please call to arrange a follow up appointment either by hospital rounds or video visit or however you choose, when i tried to schudule an appointment the clinic said that is how you prefer to do the hospital follow ups for [place] [facility] residents..) - Discharge Summary/Plan Comment DC Time >30 min.: Yes - General Info Date of Service: 04/14/21 Admission Dx/Problem (Free Text: Admission Diagnosis/Problem Admission Diagnosis/Problem Acute on chronic respiratory hypoxic and hypercarbic respiratory failure, acute on chronic congestive heart failure, COPD on home 4 L O2 Subjective Update: No acute events overnight. No new nursing concerns. Patient on and off BiPAP. Sometimes tolerating it. No acute desaturations. No disturbing behavior. Patient is not acting out. No paranoia, delusions or hallucinations. No evidence of continued ongoing GI bleeding. - Patient Data Vitals - Most Recent: Last Vital Signs Temp 98.2 F 04/14/21 09:18 Pulse 93 04/14/21 09:18 Resp 24 H 04/14/21 09:18 BP 136/76 04/14/21 09:18 Pulse Ox 92 L 04/14/21 10:20 Weight - Most Recent: 166 lb 1 oz I&O - Last 24 hours: Intake & Output 04/13/21 04/14/21 04/14/21 22:59 06:59 14:59 Intake Total 1410 350 Balance 1410 350 Lab Results - Last 24 hrs: Laboratory Results - last 24 hr 04/13/21 04/14/21 Range/Units 13:02 05:53 WBC 7.37 8.19 (4.23-9.07) K/mm3 RBC 3.37 L 3.71 L (4.63-6.08) M/mm3 Hgb 8.1 L 8.9 L (13.7-17.5) gm/dl Hct 29.4 L 32.4 L (40.1-51.0) % MCV 87.2 87.3 (79.0-92.2) fl MCH 24.0 L 24.0 L (25.7-32.2) pg MCHC 27.6 L 27.5 L (32.2-35.5) g/dl RDW Std Deviation 57.2 H 57.9 H (35.1-43.9) fL Plt Count 458 H 452 H (163-337) K/mm3 MPV 8.5 L 8.8 L (9.4-12.3) fl Neut % (Auto) 77.3 H 75.1 H (34.0-67.9) % Lymph % (Auto) 14.2 L 14.7 L (21.8-53.1) % [place] % (Auto) 7.5 9.0 (5.3-12.2) % Eos % (Auto) 0.5 L 0.4 L (0.8-7.0) Baso % (Auto) 0.1 0.2 (0.1-1.2) % Neut # (Auto) 5.69 H 6.15 H (1.78-5.38) K/mm3 Lymph # (Auto) 1.05 L 1.20 L (1.32-3.57) K/mm3 [place] # (Auto) 0.55 0.74 (0.30-0.82) K/mm3 Eos # (Auto) 0.04 0.03 L (0.04-0.54) K/mm3 Baso # (Auto) 0.01 0.02 (0.01-0.08) K/mm3 Manual Slide Review Abnormal smear Med Orders - Current: Current Medications Acetaminophen (Acetaminophen 325 Mg Tab) 650 mg PO Q4H PRN PRN Reason: Pain (Mild 1-3)/fever Last Admin: 04/13/21 04:00 Dose: 650 mg Documented by: Albuterol/Ipratropium (Albuterol/Ipratropium 3.0-0.5 Mg/3 Ml Neb Soln) 3 ml NEB Q4H BOBBI Last Admin: 04/14/21 10:19 Dose: 3 ml Documented by: Ascorbic Acid (Ascorbic Acid 500 Mg Tab) 500 mg PO DAILY [facility] Last Admin: 04/14/21 09:14 Dose: 500 mg Documented by: Budesonide (Budesonide 0.5 Mg/2 Ml Neb Susp) 0.5 mg NEB BID [facility] Last Admin: 04/14/21 10:19 Dose: 0.5 mg Documented by: Carvedilol (Carvedilol 12.5 Mg Tab) 12.5 mg PO BID [facility] Last Admin: 04/14/21 09:14 Dose: 12.5 mg Documented by: Docusate Sodium (Docusate Sodium 100 Mg Cap) 100 mg PO BID PRN PRN Reason: Constipation Furosemide (Furosemide 40 Mg Tab) 40 mg PO DAILY [facility] Last Admin: 04/14/21 09:14 Dose: 40 mg Documented by: Guaifenesin (Guaifenesin 600 Mg Tab.Er) 1,200 mg PO BID [facility] Last Admin: 04/14/21 09:13 Dose: 1,200 mg Documented by: Hydroxyzine HCl (Hydroxyzine Hcl 25 Mg Tab) 25 mg PO Q8H PRN PRN Reason: Anxiety Last Admin: 04/11/21 20:06 Dose: 25 mg Documented by: Sodium Chloride (Normal Saline) 250 mls @ 10 mls/hr IV ASDIRECTED [facility] Last Admin: 04/08/21 09:40 Dose: 10 mls/hr Documented by: Mirtazapine (Mirtazapine 30 Mg Tab) 30 mg PO BEDTIME [facility] Last Admin: 04/13/21 20:12 Dose: 30 mg Documented by: Ondansetron HCl (Ondansetron 4 Mg/2 Ml Sdv) 4 mg IV Q4H PRN PRN Reason: Nausea/Vomiting Pantoprazole Sodium (Pantoprazole 40 Mg Vial) 40 mg IV Q12HR [facility] Last Admin: 04/14/21 09:15 Dose: 40 mg Documented by: Polysaccharide Iron Complex (Iron Polysaccharides Complex 150 Mg Cap) 150 mg PO DAILY [facility] Last Admin: 04/14/21 09:13 Dose: 150 mg Documented by: Rosuvastatin Calcium (Rosuvastatin 10 Mg Tab) 20 mg PO BEDTIME [facility] Last Admin: 04/13/21 20:11 Dose: 20 mg Documented by: Sodium Chloride (Sodium Chloride 0.9% 10 Ml Syringe) 10 ml FLUSH ASDIRECTED PRN PRN Reason: Keep Vein Open Last Admin: 04/08/21 05:28 Dose: 10 ml Documented by: Tramadol HCl (Tramadol 50 Mg Tab) 50 mg PO Q6H PRN PRN Reason: Pain Last Admin: 04/13/21 20:12 Dose: 50 mg Documented by: Discontinued Medications Acetaminophen (Acetaminophen 325 Mg Tab) 650 mg PO Q6H PRN PRN Reason: Pain Albuterol/Ipratropium (Albuterol/Ipratropium 3.0-0.5 Mg/3 Ml Neb Soln) 3 ml NEB Q4H PRN PRN Reason: Shortness Of Breath/wheezing Last Admin: 04/08/21 05:32 Dose: 3 ml Documented by: Albuterol/Ipratropium (Albuterol/Ipratropium 3.0-0.5 Mg/3 Ml Neb Soln) 3 ml NEB Q4H [facility] Last Admin: 04/08/21 09:57 Dose: Not Given Documented by: Budesonide (Budesonide 0.5 Mg/2 Ml Neb Susp) 0.5 mg NEB BIDRT [facility] Last Admin: 04/12/21 10:31 Dose: Not Given Documented by: Dextrose/Water (50% Dextrose In Water 50 Ml Syringe) 50 ml IVPUSH ONETIME ONE Stop: 04/08/21 06:27 Last Admin: 04/08/21 06:32 Dose: 50 ml Documented by: Furosemide (Furosemide 40 Mg/4 Ml Vial) 40 mg IVPUSH NOW ONE Stop: 04/08/21 06:17 Last Admin: 04/08/21 06:27 Dose: 40 mg Documented by: Furosemide (Furosemide 40 Mg/4 Ml Vial) 40 mg IVPUSH NOW ONE Stop: 04/08/21 08:20 Last Admin: 04/08/21 08:26 Dose: 40 mg Documented by: Furosemide (Furosemide 40 Mg/4 Ml Vial) 40 mg IVPUSH BID [facility] Last Admin: 04/08/21 20:04 Dose: 40 mg Documented by: Furosemide (Furosemide 40 Mg Tab) 40 mg PO DAILY [facility] Last Admin: 04/10/21 08:16 Dose: 40 mg Documented by: Haloperidol (Haloperidol 1 Mg Tab) 2 mg PO BEDTIME [facility] Last Admin: 04/09/21 21:30 Dose: Not Given Documented by: Haloperidol Lactate (Haloperidol Lactate 5 Mg/Ml Sdv) 2 mg IM ONETIME ONE Stop: 04/09/21 20:51 Last Admin: 04/09/21 21:07 Dose: Not Given Documented by: Haloperidol Lactate (Haloperidol Lactate 5 Mg/Ml Sdv) 5 mg IVPUSH ONETIME ONE Stop: 04/09/21 21:09 Last Admin: 04/09/21 21:17 Dose: 5 mg Documented by: Heparin Sodium (Porcine) (Heparin Sodium 5,000 Units/Ml Vial) 5,000 units SUBCUT Q8H [facility] Last Admin: 04/13/21 01:04 Dose: 5,000 units Documented by: Hydromorphone HCl (Hydromorphone 0.5 Mg/0.5 Ml Syringe) 0.5 mg IVPUSH ONETIME ONE Stop: 04/08/21 05:21 Last Admin: 04/08/21 05:28 Dose: 0.5 mg Documented by: Magnesium Sulfate 2 gm/ Premix 50 mls @ 25 mls/hr IV ONETIME ONE Stop: 04/09/21 10:50 Last Admin: 04/09/21 09:16 Dose: 25 mls/hr Documented by: Sodium Chloride (Normal Saline) 1,000 mls @ 125 mls/hr IV ASDIRECTED [facility] Stop: 04/10/21 17:00 Last Admin: 04/10/21 10:09 Dose: 125 mls/hr Documented by: Insulin Human Regular (Insulin Regular, Human 100 Units/Ml 3 Ml Vial) 6 unit IV ONETIME ONE Stop: 04/08/21 06:28 Last Admin: 04/08/21 06:32 Dose: 6 unit Documented by: Lorazepam (Lorazepam 2 Mg/Ml Sdv) 0.5 mg IVPUSH ONETIME ONE Stop: 04/08/21 05:20 Last Admin: 04/08/21 05:28 Dose: 0.5 mg Documented by: Metoclopramide HCl (Metoclopramide 10 Mg/2 Ml Sdv) 7.5 mg IVPUSH ONETIME ONE Stop: 04/08/21 05:21 Last Admin: 04/08/21 05:28 Dose: 7.5 mg Documented by: Non-Formulary Medication (Ascorbic Acid [Vitamin C]) 500 mg PO DAILY [facility] Last Admin: 04/09/21 10:12 Dose: Not Given Documented by: Non-Formulary Medication (Carvedilol) 12.5 mg PO DAILY [facility] Last Admin: 04/09/21 10:12 Dose: Not Given Documented by: Non-Formulary Medication (Ferrous Sulfate) 1 tab PO DAILY [facility] Last Admin: 04/09/21 10:12 Dose: Not Given Documented by: Non-Formulary Medication (Hydroxyzine Hcl) 25 mg PO Q8H PRN PRN Reason: Anxiety Quetiapine Fumarate (Quetiapine 25 Mg Tab) 25 mg PO BID [facility] Last Admin: 04/10/21 08:16 Dose: 25 mg Documented by: Risperidone (Risperidone 0.5 Mg Tab) 0.5 mg PO BID [facility] Last Admin: 04/10/21 11:54 Dose: Not Given Documented by: Sodium Polystyrene Sulfonate (Sodium Polystyrene Sulfonate 15 Gm/60 Ml Susp 60 Ml Bot) 30 gm PO ONETIME ONE Stop: 04/10/21 09:45 Last Admin: 04/10/21 10:01 Dose: 15 gm Documented by: Sodium Polystyrene Sulfonate (Sodium Polystyrene Sulfonate 15 Gm/60 Ml Susp 60 Ml Bot) 45 gm PO NOW ONE Stop: 04/11/21 07:23 Last Admin: 04/11/21 07:59 Dose: 45 gm Documented by: Trazodone HCl (Trazodone 50 Mg Tab) 50 mg PO BEDTIME BOBBI - Exam Quality Assessment: Reports: Supplemental Oxygen HEENT: Reports: Pupils Equal, EOMI Lungs: Reports: Normal Respiratory Effort, Decreased Breath Sounds, Rhonchi Cardiovascular: Reports: Regular Rate, Regular Rhythm GI/Abdominal Exam: Normal Bowel Sounds, Soft, Non-Tender, No Distention (Male) Exam: Hernia (ventral) Extremities: Normal Inspection, No Pedal Edema Skin: Reports: Warm, Dry Psy/Mental Status: Reports: Alert, Normal Mood
== END 2021-04-14 14:42 | DRG 291 ==
LOC: JD.ED 05:06 → JD.ICU 08:33
PROVIDERS: ADMIT Hospitalist; ATTEND Hospitalist
PROC: 30233N1 Transfusion of Nonautologous Red Blood Cells into Peripheral Vein, Percutaneous Approach (ICD-10-PCS; principal; 2021-04-08)
PROC: 5A09557 Assistance with Respiratory Ventilation, Greater than 96 Consecutive Hours, Continuous Positive Airway Pressure (ICD-10-PCS; principal; 2021-04-08)
DX: I13.0 Hypertensive heart and chronic kidney disease with heart failure and stage 1 through stage 4 chronic kidney disease, or unspecified chronic kidney disease (principal); I50.33 Acute on chronic diastolic (congestive) heart failure; J96.22 Acute and chronic respiratory failure with hypercapnia; G92 Toxic encephalopathy; J96.21 Acute and chronic respiratory failure with hypoxia; K92.2 Gastrointestinal hemorrhage, unspecified; E46 Unspecified protein-calorie malnutrition; J43.1 Panlobular emphysema; I42.9 Cardiomyopathy, unspecified; E87.6 Hypokalemia; I73.9 Peripheral vascular disease, unspecified; N40.1 Benign prostatic hyperplasia with lower urinary tract symptoms; R35.1 Nocturia; I25.10 Atherosclerotic heart disease of native coronary artery without angina pectoris; R62.7 Adult failure to thrive; T42.4X5A Adverse effect of benzodiazepines, initial encounter; Z20.822 Contact with and (suspected) exposure to COVID-19; T40.2X5A Adverse effect of other opioids, initial encounter; I71.2 Thoracic aortic aneurysm, without rupture; N18.32 Chronic kidney disease, stage 3b; F91.9 Conduct disorder, unspecified; Z66 Do not resuscitate; I27.20 Pulmonary hypertension, unspecified; G89.29 Other chronic pain; M54.9 Dorsalgia, unspecified; F41.9 Anxiety disorder, unspecified; F32.9 Major depressive disorder, single episode, unspecified; F43.10 Post-traumatic stress disorder, unspecified; F12.20 Cannabis dependence, uncomplicated; M54.5 Low back pain; D63.1 Anemia in chronic kidney disease; Z87.891 Personal history of nicotine dependence; I25.2 Old myocardial infarction; Z95.1 Presence of aortocoronary bypass graft; Z79.899 Other long term (current) drug therapy; Z99.81 Dependence on supplemental oxygen; Z79.51 Long term (current) use of inhaled steroids; Z68.22 Body mass index [BMI] 22.0-22.9, adult
CPT/HCPCS: 36415; 36430; 36600; 71045; 80053; 82803; 83735; 83880; 84484; 85025; 85610; 85652; 85730; 86140; 86850; 86900; 86901; 86922; 87635; 93005; 94640; 94660; 96374; 96375; 96376; 99285; J1170; J1815; J1940 ×2; J2060; J2765; P9016; 80048; 82272; 87070; 87205; 93010; 93306; 97167-GO; 97530-GO; 99223; 99232; 99233; 99239; A9270-GY; C9113; J1630; J1644; J3475; J7030; J7050; J7620-GY; Q3014; U0002